=== PATIENT | female | born 1985 | race Caucasian/White ===

== ENCOUNTER → 2017-06-26 | Outpatient (CLI) | payer OTHER, SELFPAY | PROVIDERS: Visit Provider Internal Medicine | DX: L02.221 Furuncle of abdominal wall (principal) | CPT/HCPCS: 87070; 87077; 87186 ==

== ENCOUNTER → 2017-09-28 07:34 | Outpatient (CLI) | payer OTHER, SELFPAY ==
[2017-09-28 07:45] LABS: Basophils % 0.3 % (0.1-2.0); Eosinophils # 0.2 K/mm3 (0.0-0.4); Hematocrit 41.2 % (37.0-47.0); Hemoglobin 13.9 g/dL (12.2-16.2); Lymphocytes # 2.7 K/mm3 (0.7-4.5); Lymphocytes % 25.2 K/mm3 (10-50); Mean Corpuscular HGB Conc 33.7 g/dL (31.8-35.4); Mean Corpuscular Hemoglobin 29.5 pg (27.0-31.2); Mean Corpuscular Volume 87.5 fl (81-99); Mean Platelet Volume 7.5 fl (7.4-10.4); Monocytes # 0.6 K/mm3 (0.1-1.0); Monocytes % 5.4 % (1.7-9.3); Neutrophils # 7.2 K/mm3 (1.8-7.8); Platelet Count 348 K/mm3 (142-424); Red Cell Distribution Width 14.1 % (11.5-17.5); White Blood Count 10.8 K/mm3 (4.8-10.8)
[2017-09-28 09:53] LABS: Alanine Aminotransferase 37 U/L (12-78); Albumin Level 2.8 gm/dL (3.4-5.0); Albumin/Globulin Ratio 0.8 (1.1-1.8); Alkaline Phosphatase 113 U/L (46-116); Aspartate Amino Transferase 22 U/L (15-37); Bilirubin,Total 0.2 mg/dL (0.2-1.0); Blood Urea Nitrogen 11 mg/dL (7-18); Calcium 8.5 mg/dL (8.5-10.1); Carbon Dioxide 25 mmol/L (21.0-32.0); Chloride 102 mmol/L (98-107); Chol/HDL Ratio 3.1 (1-3.5); Cholesterol 144 mg/dL (140-200); Creatinine,Serum 0.62 mg/dL (0.55-1.02); Estimated Glomerular Filt Rate 113 ml/min (>60); GFR (African American) 137 ML/MIN (>60); Globulin 3.6 gm/dl (1.3-3.2); Glucose 185 mg/dL (74-106); HDL Cholesterol 47 mg/dL (29-89); LDL Cholesterol 77 mg/dL (0-130); Sodium 137 mmol/L (136-145); Thyroid Stimulating Hormone 2.12 uIU/ml (0.358-3.740); Total Protein,Serum 6.4 gm/dL (6.4-8.2); Triglycerides 98 mg/dL (30-200); VLDL Cholesterol 20 mg/dL (0-40)
[2017-09-29 19:43] LABS: Hemoglobin A1C 6.5 % (0.0-7.0)
== END ==
PROVIDERS: Visit Provider Internal Medicine
DX: R53.83 Other fatigue (principal); E78.5 Hyperlipidemia, unspecified; E11.9 Type 2 diabetes mellitus without complications; K76.0 Fatty (change of) liver, not elsewhere classified
CPT/HCPCS: 36415; 80053; 80061; 83036; 84443; 85025

== ENCOUNTER → 2017-10-25 17:02 | Outpatient (REF) | payer OTHER, SELFPAY | LOC: LAB 17:02 | PROVIDERS: Visit Provider Nurse Practitioner Obstetrics & Gynecology | DX: Z01.419 Encounter for gynecological examination (general) (routine) without abnormal findings (principal) | CPT/HCPCS: 87086 ==

== ENCOUNTER → 2017-12-18 12:56 | Outpatient (POV) | payer OTHER, SELFPAY | PROVIDERS: Visit Provider Physician Assistant | DX: Z00.00 Encounter for general adult medical examination without abnormal findings (principal) ==

== ENCOUNTER → 2018-04-13 07:52 | Outpatient (CLI) | payer OTHER, SELFPAY ==
[2018-04-13 10:49] LABS: Hemoglobin A1C 8.5 % (0.0-7.0)
[2018-04-13 11:02] LABS: Alanine Aminotransferase 42 U/L (12-78); Albumin Level 2.9 gm/dL (3.4-5.0); Albumin/Globulin Ratio 0.7 (1.1-1.8); Alkaline Phosphatase 142 U/L (46-116); Anion Gap 16.5 mEq/L (5-15); Aspartate Amino Transferase 30 U/L (15-37); Bilirubin,Total 0.2 mg/dL (0.2-1.0); Blood Urea Nitrogen 9 mg/dL (7-18); Calcium 8.8 mg/dL (8.5-10.1); Carbon Dioxide 24 mmol/L (21.0-32.0); Chloride 102 mmol/L (98-107); Chol/HDL Ratio 3.3 (1-3.5); Cholesterol 140 mg/dL (140-200); Creatinine,Serum 0.57 mg/dL (0.55-1.02); Estimated Glomerular Filt Rate 124 ml/min (>60); GFR (African American) 150 ML/MIN (>60); Glucose 177 mg/dL (74-106); HDL Cholesterol 43 mg/dL (29-89); LDL Cholesterol 75 mg/dL (0-130); Potassium 4.5 mmoL/L (3.5-5.1); Sodium 138 mmol/L (136-145); Thyroid Stimulating Hormone 3.98 uIU/ml (0.358-3.740); Total Protein,Serum 6.9 gm/dL (6.4-8.2); Triglycerides 108 mg/dL (30-200); VLDL Cholesterol 22 mg/dL (0-40)
== END ==
PROVIDERS: PCP Internal Medicine; Visit Provider Internal Medicine
DX: E11.9 Type 2 diabetes mellitus without complications (principal); E78.5 Hyperlipidemia, unspecified; R19.7 Diarrhea, unspecified; R53.83 Other fatigue; G47.10 Hypersomnia, unspecified
CPT/HCPCS: 36415; 80053; 80061; 83036; 84443

== ENCOUNTER → 2018-04-16 12:55 | Outpatient (POV) | payer OTHER, SELFPAY | PROVIDERS: Family Provider Internal Medicine; PCP Internal Medicine; Visit Provider Physician Assistant | DX: Z00.00 Encounter for general adult medical examination without abnormal findings (principal) ==

== ENCOUNTER → 2018-07-20 07:43 | Outpatient (CLI) | payer OTHER, SELFPAY ==
[2018-07-20 15:19] LABS: Hemoglobin A1C 8.3 % (0.0-7.0)
== END ==
PROVIDERS: PCP Internal Medicine; Visit Provider Internal Medicine
DX: E03.9 Hypothyroidism, unspecified (principal); E11.9 Type 2 diabetes mellitus without complications
CPT/HCPCS: 36415; 83036; 84443

== ENCOUNTER → 2019-07-03 10:47 | Outpatient (CLI) | payer OTHER, SELFPAY ==
[2019-07-03 12:17] VITALS: PULSE 71; PULSE 72
--- NOTE | 2019-07-03 12:21 | XR_ITS ---
PROCEDURE: XR CHEST 2V CLINICAL HISTORY: ASTHMA Shortness of breath COMPARISON: CXR CHEST(2 VIEWS-NOT PORTABLE) from 10/06/2015 FINDINGS: The cardiomediastinal silhouette and pulmonary vascularity are within normal limits. The lungs are clear without infiltrates, suspicious nodules, or pleural effusions. No acute bony abnormalities. IMPRESSION: No acute findings. Dictated by: Jonathan Cody MD 07/03/2019 21:23 Electronically signed by Jonathan Cody MD in [place] 07/03/2019 21:25
== END ==
LOC: RT 10:48 → RAD 12:11
PROVIDERS: PCP Internal Medicine; Visit Provider Internal Medicine
DX: J45.51 Severe persistent asthma with (acute) exacerbation
CPT/HCPCS: 71046; 94640

== ENCOUNTER → 2020-01-03 11:48 | Outpatient (CLI) | payer OTHER, SELFPAY ==
[2020-01-03 14:43] LABS: Chloride 103 mmol/L (98-107)
[2020-01-03 14:44] LABS: Potassium 4.1 mmoL/L (3.5-5.1); Sodium 134 mmol/L (136-145)
[2020-01-03 14:46] LABS: Alanine Aminotransferase 26 U/L (12-78); Alkaline Phosphatase 150 U/L (38-126); Amylase 48 U/L (30-110); Anion Gap 12.1 mEq/L (5-15); Aspartate Amino Transferase 40 U/L (14-36); Bilirubin,Total 0.3 mg/dl (0.2-1.3); Blood Urea Nitrogen 11 mg/dl (7-17); Carbon Dioxide 23 mmol/L (22.0-30.0); Estimated Glomerular Filt Rate 143 ml/min (>60); GFR (African American) 173 ML/MIN (>60)
[2020-01-03 14:47] LABS: Albumin Level 3.5 g/dl (3.5-5.0); Albumin/Globulin Ratio 1.2 (1.1-1.8); Glucose 290 mg/dl (74-100); Total Protein,Serum 6.5 g/dl (6.3-8.2)
== END ==
PROVIDERS: Visit Provider Internal Medicine
DX: R10.11 Right upper quadrant pain (principal)
CPT/HCPCS: 36415; 80053; 82150

== ENCOUNTER → 2020-01-09 07:51 | Outpatient (CLI) | payer OTHER, SELFPAY ==
--- NOTE | 2020-01-09 07:54 | US_ITS ---
PROCEDURE: US ABDOMEN COMPLETE CLINICAL INDICATION: RUQ PAIN,LT FLANK PAIN Right upper quadrant pain, left flank pain COMPARISON: RUQ US RUQ-(ABD LTD)1ORGAN/QUAD/FU from 01/20/2017 FINDINGS: PANCREAS: Unremarkable. No obvious mass or abnormal fluid collection. No ductal dilatation LIVER: There is slight increased echogenicity of the liver with a somewhat coarse echotexture. No focal liver lesions are evident. The common bile duct is normal at 4 mm. RIGHT KIDNEY: Unremarkable. Normal size and echogenicity. No hydronephrosis LEFT KIDNEY: Unremarkable. Normal size and echogenicity. No hydronephrosis GALLBLADDER: Status post cholecystectomy. AORTA: No evidence of aneurysmal dilatation. SPLEEN: Unremarkable. Normal size and echogenicity ASCITES: None demonstrated. IMPRESSION: Slight increased echogenicity of the liver suggesting hepatic steatosis. Prior cholecystectomy. Dictated by: Jonathan Cody MD 01/09/2020 17:30 Electronically signed by Jonathan Coyd MD in [facility] 01/09/2020 17:30
== END ==
PROVIDERS: PCP Internal Medicine; Visit Provider Internal Medicine
DX: R10.11 Right upper quadrant pain (principal); R10.9 Unspecified abdominal pain
CPT/HCPCS: 76700

== ENCOUNTER → 2020-01-29 13:42 | Outpatient (CLI) | payer OTHER, SELFPAY ==
[2020-01-29 16:07] LABS: Coronavirus 19 IgG Antibody Negative (Negative); Coronavirus 19 IgM Antibody Negative (Negative)
== END ==
PROVIDERS: Visit Provider Internal Medicine
DX: Z03.818 Encounter for observation for suspected exposure to other biological agents ruled out (principal)
CPT/HCPCS: 36415; 86328

== ENCOUNTER → 2020-02-28 14:09 | Outpatient (CLI) | payer OTHER, SELFPAY | PROVIDERS: Visit Provider Internal Medicine | DX: L02.221 Furuncle of abdominal wall (principal) | CPT/HCPCS: 87070; 87077; 87186; 87205 ==

== ENCOUNTER → 2020-04-14 11:56 | Outpatient (CLI) | payer OTHER, SELFPAY ==
[2020-04-14 12:20] LABS: Adenovirus F 40/41, stool Not Detected (NotDetected); Astrovirus Not Detected (NotDetected); Campylobacter Not Detected (NotDetected); Clostridium Difficile A/B, PCR Not Detected (NotDetected); Cryptosporidium Not Detected (NotDetected); Cyclospora Cayetanesis Not Detected (NotDetected); Entamoeba histolytica Not Detected (NotDetected); Enteroaggregative E coli Not Detected (NotDetected); Enterotoxigenic E coli Not Detected (NotDetected); Giardia lamblia Not Detected (NotDetected); Norovirus Not Detected (NotDetected); Plesimonas Shigalloides, PCR Not Detected (NotDetected); Rotavirus A Not Detected (NotDetected); Salmonella, PCR Not Detected (NotDetected); Sapovirus Not Detected (NotDetected); Shiga-like toxin E coli Not Detected (NotDetected); Shigella Enterovasive E coli Not Detected (NotDetected); Vibrio Cholerae Not Detected (NotDetected); Vibrio, PCR Not Detected (NotDetected); Yersinia Entercolitica, PCR Not Detected (NotDetected)
[2020-04-14 20:55] LABS: Enteropathogenic E coli Detected (NotDetected)
== END ==
PROVIDERS: PCP Internal Medicine; Visit Provider Internal Medicine
DX: R19.7 Diarrhea, unspecified (principal); A04.0 Enteropathogenic Escherichia coli infection
CPT/HCPCS: 87507

== ENCOUNTER → 2020-05-21 14:52 | Outpatient (CLI) | payer OTHER, SELFPAY ==
[2020-05-21 15:06] LABS: Adenovirus F 40/41, stool Not Detected (NotDetected); Astrovirus Not Detected (NotDetected); Campylobacter Not Detected (NotDetected); Clostridium Difficile A/B, PCR Not Detected (NotDetected); Cryptosporidium Not Detected (NotDetected); Cyclospora Cayetanesis Not Detected (NotDetected); Entamoeba histolytica Not Detected (NotDetected); Enteroaggregative E coli Not Detected (NotDetected); Enteropathogenic E coli Not Detected (NotDetected); Enterotoxigenic E coli Not Detected (NotDetected); Giardia lamblia Not Detected (NotDetected); Norovirus Not Detected (NotDetected); Plesimonas Shigalloides, PCR Not Detected (NotDetected); Rotavirus A Not Detected (NotDetected); Salmonella, PCR Not Detected (NotDetected); Sapovirus Not Detected (NotDetected); Shiga-like toxin E coli Not Detected (NotDetected); Shigella Enterovasive E coli Not Detected (NotDetected); Vibrio Cholerae Not Detected (NotDetected); Vibrio, PCR Not Detected (NotDetected); Yersinia Entercolitica, PCR Not Detected (NotDetected)
== END ==
PROVIDERS: PCP Internal Medicine; Visit Provider Internal Medicine
DX: K52.9 Noninfective gastroenteritis and colitis, unspecified (principal)
CPT/HCPCS: 87507

== ENCOUNTER → 2020-07-07 09:05 | Outpatient (CLI) | payer OTHER, SELFPAY ==
[2020-07-08 14:14] LABS: Covid-19 Nasal PCR Sendout Lex Not Detected
== END ==
PROVIDERS: PCP Internal Medicine; Visit Provider Internal Medicine
DX: Z03.818 Encounter for observation for suspected exposure to other biological agents ruled out (principal); R19.7 Diarrhea, unspecified
CPT/HCPCS: U0004

== ENCOUNTER → 2020-08-25 07:11 | Outpatient (CLI) | payer OTHER, SELFPAY ==
--- NOTE | 2020-08-25 07:28 | ECG_ITS ---
APPROVED REPORT Exam: Resting ECG HR:77 bpm ECG Measurements Heart Rate 77 AXES OR 164 P 40 QRSd 82 QRS 0 QT 388 T 28 QTc 439 Conclusion Normal sinus rhythm Low voltage QRS Poor R Wave Progression Abnormal ECG Electronically signed by : Agapito Sauceda, 08/25/2020 13:44:41
[2020-08-25 07:54] LABS: Basophils # 0.1 K/mm3 (0-0.2); Basophils % 0.6 % (0.1-2.0); Eosinophils # 0.2 K/mm3 (0.0-0.4); Eosinophils % 2.1 % (0.1-12.0); Hematocrit 46.7 % (37.0-47.0); Lymphocytes % 26.4 % (10-50); Mean Corpuscular HGB Conc 32.1 g/dL (31.8-35.4); Mean Corpuscular Hemoglobin 27.5 pg (27.0-31.2); Mean Corpuscular Volume 85.6 fl (81-99); Mean Platelet Volume 7.9 fl (7.4-10.4); Monocytes # 0.5 K/mm3 (0.1-1.0); Monocytes % 4.1 % (1.7-9.3); Neutrophils # 7.7 K/mm3 (1.8-7.8); Neutrophils % 66.8 % (37.0-80.0); Platelet Count 338 K/mm3 (142-424); Red Blood Count 5.46 M/mm3 (4.20-5.40); Red Cell Distribution Width 15.8 % (11.5-17.5); White Blood Count 11.5 K/mm3 (4.8-10.8)
[2020-08-25 09:09] LABS: Alanine Aminotransferase 21 U/L (12-78); Albumin Level 3.3 g/dl (3.5-5.0); Alkaline Phosphatase 143 U/L (38-126); Amylase 35 U/L (30-110); Anion Gap 12.4 mEq/L (5-15); Aspartate Amino Transferase 47 U/L (14-36); Bilirubin,Total 0.3 mg/dl (0.2-1.3); Blood Urea Nitrogen 9 mg/dl (7-17); Calcium 9.4 mg/dl (8.4-10.2); Carbon Dioxide 26 mmol/L (22.0-30.0); Chloride 99 mmol/L (98-107); Estimated Glomerular Filt Rate 142 ml/min (>60); GFR (African American) 172 ML/MIN (>60); Globulin 3.4 g/dL (1.3-3.2); Glucose 279 mg/dl (74-100); Potassium 4.4 mmoL/L (3.5-5.1); Sodium 133 mmol/L (136-145); Total Protein,Serum 6.7 g/dl (6.3-8.2)
[2020-08-25 09:24] LABS: Troponin I < 0.01 ng/ml (0.00-0.034)
== END ==
PROVIDERS: Visit Provider Internal Medicine
DX: R07.89 Other chest pain (principal); R10.13 Epigastric pain
CPT/HCPCS: 36415; 80053; 82150; 84484; 85025; 93005

== ENCOUNTER → 2020-09-22 09:27 | Outpatient (CLI) | payer OTHER, SELFPAY | PROVIDERS: PCP Internal Medicine; Visit Provider Internal Medicine | DX: Z20.822 Contact with and (suspected) exposure to COVID-19 (principal) | CPT/HCPCS: U0003 ==

== ENCOUNTER → 2021-02-16 16:52 | Outpatient (CLI) | payer OTHER, SELFPAY ==
[2021-02-16 16:55] LABS: Adenovirus F 40/41, stool Not Detected (NotDetected); Astrovirus Not Detected (NotDetected); Campylobacter Not Detected (NotDetected); Clostridium Difficile A/B, PCR Not Detected (NotDetected); Cryptosporidium Not Detected (NotDetected); Cyclospora Cayetanesis Not Detected (NotDetected); Entamoeba histolytica Not Detected (NotDetected); Enteroaggregative E coli Not Detected (NotDetected); Enteropathogenic E coli Not Detected (NotDetected); Enterotoxigenic E coli Not Detected (NotDetected); Giardia lamblia Not Detected (NotDetected); Norovirus Not Detected (NotDetected); Plesimonas Shigalloides, PCR Not Detected (NotDetected); Rotavirus A Not Detected (NotDetected); Salmonella, PCR Not Detected (NotDetected); Sapovirus Not Detected (NotDetected); Shiga-like toxin E coli Not Detected (NotDetected); Shigella Enterovasive E coli Not Detected (NotDetected); Vibrio Cholerae Not Detected (NotDetected); Vibrio, PCR Not Detected (NotDetected); Yersinia Entercolitica, PCR Not Detected (NotDetected)
== END ==
PROVIDERS: PCP Internal Medicine; Visit Provider Internal Medicine
DX: K52.9 Noninfective gastroenteritis and colitis, unspecified (principal)
CPT/HCPCS: 87507

== ENCOUNTER → 2021-02-18 19:53 | Outpatient (CLI) | payer OTHER, SELFPAY | PROVIDERS: Visit Provider Nurse Practitioner Family | DX: Z11.52 Encounter for screening for COVID-19 (principal) | CPT/HCPCS: U0003 ==

== ENCOUNTER → 2021-06-11 11:12 | Outpatient (CLI) | payer OTHER, SELFPAY ==
[2021-06-11 14:38] LABS: Coronavirus 19, PCR Not Detected (NotDetected); Influenza A, PCR Not Detected (NotDetected); Influenza B, PCR Not Detected (NotDetected)
== END ==
PROVIDERS: PCP Internal Medicine; Visit Provider Internal Medicine
DX: Z20.822 Contact with and (suspected) exposure to COVID-19 (principal)
CPT/HCPCS: C9803; U0003; U0005

== ENCOUNTER → 2021-06-12 10:38 | Outpatient (CLI) | payer OTHER, SELFPAY ==
[2021-06-12 10:43] LABS: Adenovirus F 40/41, stool Not Detected (NotDetected); Astrovirus Not Detected (NotDetected); Campylobacter Not Detected (NotDetected); Clostridium Difficile A/B, PCR Not Detected (NotDetected); Cryptosporidium Not Detected (NotDetected); Cyclospora Cayetanesis Not Detected (NotDetected); Entamoeba histolytica Not Detected (NotDetected); Enteroaggregative E coli Not Detected (NotDetected); Enteropathogenic E coli Not Detected (NotDetected); Enterotoxigenic E coli Not Detected (NotDetected); Giardia lamblia Not Detected (NotDetected); Norovirus Not Detected (NotDetected); Plesimonas Shigalloides, PCR Not Detected (NotDetected); Rotavirus A Not Detected (NotDetected); Salmonella, PCR Not Detected (NotDetected); Sapovirus Not Detected (NotDetected); Shiga-like toxin E coli Not Detected (NotDetected); Shigella Enterovasive E coli Not Detected (NotDetected); Vibrio Cholerae Not Detected (NotDetected); Vibrio, PCR Not Detected (NotDetected); Yersinia Entercolitica, PCR Not Detected (NotDetected)
== END ==
PROVIDERS: Visit Provider Internal Medicine
DX: K52.9 Noninfective gastroenteritis and colitis, unspecified (principal)
CPT/HCPCS: 87205; 87507

== ENCOUNTER → 2021-06-23 09:41 | Outpatient (CLI) | payer OTHER, SELFPAY ==
--- NOTE | 2021-06-23 09:43 | CT_ITS ---
PROCEDURE: CT ABDOMEN PELVIS WO CON CLINICAL INDICATION: GASTROENTERITIS COMPARISON: No exams were available for comparison TECHNIQUE: Axial images obtained with sagittal and coronal reformats. All CT scans at the facility use one or more dose reduction, viz: automated exposure control, ma/kV adjustment per patient size (including targeted exams where dose is matched to indication, i.e. head), or iterative reconstruction technique. FINDINGS: LOWER THORAX: Multiple small calcified nodules ABDOMEN & PELVIS: Prior cholecystectomy. Liver, spleen adrenal glands pancreas and kidneys have an unremarkable appearance. No renal or ureteral calculi. No intestinal obstruction or free air. Unremarkable appendix. No evidence of diverticulitis. The fundus of the uterus is prominent and canted toward the right raising the suspicion of uterine fibroid involvement. Ultrasound may confirm. No acute bony anomalies IMPRESSION: No acute finding. Enlarged fundus of the uterus canted toward the right which may be related to fibroid involvement. Ultrasound suggested for confirmation. Dictated by: Jonathan Cody MD 06/24/2021 09:37 Jonathan Cody MD in [facility] 06/24/2021 09:37
== END ==
PROVIDERS: PCP Internal Medicine; Visit Provider Internal Medicine
DX: K52.9 Noninfective gastroenteritis and colitis, unspecified (principal)
CPT/HCPCS: 74176

== ENCOUNTER → 2021-07-02 09:18 | Outpatient (CLI) | payer OTHER, SELFPAY ==
--- NOTE | 2021-07-02 09:21 | US_ITS ---
PROCEDURE: US ABDOMEN COMPLETE CLINICAL INDICATION: ABN CT SCAN, ABD CRAMPS, DIARRHEA COMPARISON: US US ABDOMEN COMPLETE from 01/09/[address] ABDOMEN PELVIS WO CON from 06/23/2021 FINDINGS: PANCREAS: Unremarkable. No obvious mass or abnormal fluid collection. No ductal dilatation LIVER: No focal liver lesions demonstrated. Homogeneous echogenicity. No intrahepatic biliary ductal dilatation evident. There is appropriate direction of blood flow within a non dilated portal vein RIGHT KIDNEY: Unremarkable. Normal size and echogenicity. No hydronephrosis LEFT KIDNEY: Unremarkable. Normal size and echogenicity. No hydronephrosis GALLBLADDER: No gallstones, gallbladder wall thickening, pericholecystic fluid, or biliary dilatation. AORTA: No evidence of aneurysmal dilatation. SPLEEN: Unremarkable. Normal size and echogenicity ASCITES: None demonstrated. IMPRESSION: No acute findings Dictated by: Jonathan Cody MD 07/02/2021 13:54 Jonathan oCdy MD in [facility] 07/02/2021 13:54
== END ==
PROVIDERS: PCP Internal Medicine; Visit Provider Internal Medicine
DX: R10.9 Unspecified abdominal pain (principal); R19.7 Diarrhea, unspecified; R93.5 Abnormal findings on diagnostic imaging of other abdominal regions, including retroperitoneum
CPT/HCPCS: 76700

== ENCOUNTER → 2021-07-07 14:15 | Outpatient (CLI) | payer OTHER, SELFPAY ==
--- NOTE | 2021-07-07 14:18 | US_ITS ---
PROCEDURE: US TRANSVAGINAL CLINICAL INDICATION: ABD CRAMPING COMPARISON: CT CT ABDOMEN PELVIS WO CON from 06/23/2021 FINDINGS: UTERUS: 8cm x 4cmx 4cm with a combined endometrial thickness of 3.1mm LEFT OVARY: 7lkh2oji6.4cm with a volume of 3.7ml. RIGHT OVARY: [id number] with a volume of 5.9ml. There are nabothian cyst present measuring up to 9 mm. Along the posterior aspect the body of the uterus there is a 1.3 x 1 cm area of decreased echogenicity consistent with a fibroid. No cul-de-sac fluid. IMPRESSION: Small uterine fibroid and small nabothian cysts otherwise negative pelvic ultrasound Dictated by: Jonathan Cody MD 07/07/2021 17:17 Jonathan Cody MD in [facility] 07/07/2021 17:17
== END ==
PROVIDERS: PCP Internal Medicine; Visit Provider Internal Medicine
DX: R10.9 Unspecified abdominal pain (principal)
CPT/HCPCS: 76830

== ENCOUNTER → 2021-08-16 11:20 | Outpatient (CLI) | payer OTHER, SELFPAY ==
[2021-08-16 11:35] LABS: Coronavirus 19, PCR Not Detected (NotDetected); Influenza A, PCR Not Detected (NotDetected); Influenza B, PCR Not Detected (NotDetected)
[2021-08-16 11:52] LABS: Strep Scrn Group A (Rapid) Negative (Negative)
== END ==
PROVIDERS: PCP Internal Medicine; Visit Provider Internal Medicine
DX: Z20.822 Contact with and (suspected) exposure to COVID-19 (principal)
CPT/HCPCS: 87430; C9803; U0003; U0005

== ENCOUNTER → 2021-10-16 15:15 | Outpatient (CLI) | payer OTHER, SELFPAY ==
[2021-10-16 15:25] VITALS: BMI 37.8
== END ==
PROVIDERS: PCP Internal Medicine; Visit Provider Nurse Practitioner
DX: J02.0 Streptococcal pharyngitis (principal)
CPT/HCPCS: J0561

== ENCOUNTER → 2021-10-27 07:06 | Outpatient (CLI) | payer OTHER, SELFPAY ==
--- NOTE | 2021-10-27 07:10 | XR_ITS ---
FINAL REPORT CLINICAL HISTORY: MUSCLE STRAIN, low back pain FINDINGS: LUMBAR SPINE 5 views of the lumbar spine were obtained. There is no evidence of fracture or dislocation. There is straightening of the normal lumbar curvature which could be due to positioning or muscle spasm. The vertebral alignment is normal. Disc spaces are preserved. No paraspinous soft tissue abnormalities identified. IMPRESSION: No acute bony abnormality. Reviewed, Interpreted and Dictated by Jair España III, MD Transcribed by Asha Chua Authenticated by Jair España III, MD on 10/27/2021 10:07:45 AM [facility]
== END ==
PROVIDERS: PCP Internal Medicine; Visit Provider Internal Medicine
DX: S39.012A Strain of muscle, fascia and tendon of lower back, initial encounter (principal)
CPT/HCPCS: 72110

== ENCOUNTER → 2021-11-01 06:09 | Outpatient (CLI) | payer OTHER, SELFPAY | PROVIDERS: PCP Internal Medicine; Visit Provider Emergency Medicine | DX: Z11.52 Encounter for screening for COVID-19 (principal) ==

== ENCOUNTER → 2021-12-06 14:57 | Outpatient (CLI) | payer OTHER, SELFPAY ==
[2021-12-06 16:37] LABS: Strep Scrn Group A (Rapid) Negative (Negative)
== END ==
PROVIDERS: Visit Provider Nurse Practitioner
DX: J02.9 Acute pharyngitis, unspecified (principal)
CPT/HCPCS: 87430

== ENCOUNTER 2022-01-07 15:14 | Emergency (ER) | payer OTHER, SELFPAY ==
[2022-01-07 15:15] VITALS: BP 121/78; PULSE 89; RESP 18; TEMP 36.8; O2SAT 96; BMI 39.3
--- NOTE | 2022-01-07 15:25 | HMH.EDUTC ---
[facility] Disposition Clinical Impression: Viral syndrome Pharyngitis Qualifiers: Pharyngitis/tonsillitis etiology: unspecified etiology Qualified Code(s): J02.9 - Acute pharyngitis, unspecified Disposition: Home, Self-Care Condition on Discharge: Good Instructions: DI for Pharyngitis/Tonsillopharyngitis -- Adult, DI for Viral Syndrome, Preventing the Spread of Coronavirus Discharge Instructions Additional Instructions: Drink plenty of fluids. Take tylenol or ibuprofen for pain or fever. Take the medications as directed. Follow up with your regular doctor. GO TO THE ER FOR ANY WORSENING SYMPTOMS Prescriptions: Benzonatate [Benzonatate 100mg cap] 100 mg PO TIDP PRN #30 cap PRN Reason: Cough Transmission Status: [facility] to [facility] Azithromycin [Z-Yung 250mg Tab*] 250 mg PO UD DOSE PK #6 tab Transmission Status: Sent to [facility] Referrals: Agapito Sauceda MD [Primary Care Provider] - Forms: Work/School Release Medical Decision Making - Medical Records Medical records reviewed: No: I reviewed the patient's medical records. - Mookie Inquiry Pt receiving controlled substance: No Vital Signs: 01/07/22 15:15 Temperature 98.3 F Temperature Source Oral Pulse Rate [Right Brachial] 89 Respiratory Rate 18 Blood Pressure [Right Arm] 121/78 Blood Pressure Mean [Right Arm] 92 Blood Pressure Source [Right Arm] Automatic Cuff Blood Pressure Position [Right Arm] Sitting 02 Sat by Pulse Oximetry 96 Oxygen Delivery Method Room Air - Lab Data Lab results reviewed: Yes: I reviewed the patient's lab results. Lab Results 01/07/22 15:25: Group A Strep Rapid Negative Orders (Tests/Meds): ED MEDICATIONS Discontinued Medications Generic Name Dose Route Start Last Admin Trade Name Freq PRN Reason Stop Dose Admin Methylprednisolone Sodium Succinate 125 mg 01/07/22 15:47 01/07/22 15:50 Methylprednisolone Sod Succ 125mg Vial IM 01/07/22 15:48 125 mg ONCE ONE Administration ORDERS Category Date Time Status Rapid PCR Covid and Flu A/B Stat Lab 01/07/22 15:58 Received Strep Screen Confirmation Stat Micro 01/07/22 15:25 Received [facility] HPI - General Stated complaint: sore throat Time Seen by Provider: 01/07/22 15:26 - History of Present Illness Provider Complaint: She states that for the past 5 days approx she has had a very sore throat, dry cough, chills, and malaise. She denies fever and body aches. - Related Data Home Medications Medication Instructions Recorded Confirmed lisinopril 2.5 mg tablet 2.5 mg PO ONCE 10/25/17 12/30/21 metformin 500 mg tablet,extended 500 mg PO QID tab 10/25/17 12/30/21 release 24 hr sertraline 50 mg tablet 50 mg PO Q24H 10/25/17 12/30/21 colestipol 1 gram tablet 1 g PO tab 12/30/21 12/30/21 levothyroxine 50 mcg tablet 50 mcg PO tab 12/30/21 12/30/21 semaglutide 7 mg tablet ea PO 12/30/21 12/30/21 Previous Rx's Medication Instructions Recorded carvedilol 3.125 mg tablet 3.125 mg PO BID #60 tab 03/09/18 norgestimate 0.25 mg-ethinyl See Rx Instructions .ROUTE 04/20/21 estradiol 35 mcg tablet .COMPLEX #84 tab Azithromycin [Z-Yung 250mg Tab*] 250 mg PO UD DOSE PK #6 tab 01/07/22 Benzonatate [Benzonatate 100mg 100 mg PO TIDP PRN #30 cap 01/07/22 cap] Allergies Allergy/AdvReac Type Severity Reaction Status Date / Time ORAL STEROIDS AdvReac Uncoded 12/30/21 13:55 [facility] History - Hepatitis A Screen Attestation statement:: This patient has been screened for Hepatitis A risk factors. I have reviewed the patient's past medical history: Yes Medical History: Reports:: Anxiety, Asthma, Depression, Diabetes Mellitus Type 2, Gall Bladder Disease, Hypertension Other Medical History: Reports: Thyroid Disease Laterality Cases: Bilateral: Tonsillectomy Other Surgeries: Yes: Cholecystectomy - Social History Smoking Status: Current every day smoker Tobacco Type: cigarettes # Packs/Day (ci
[2022-01-07 15:39] LABS: Strep Scrn Group A (Rapid) Negative (Negative)
[2022-01-07 16:04] LABS: Coronavirus 19, PCR Not Detected (NotDetected); Influenza A, PCR Not Detected (NotDetected); Influenza B, PCR Not Detected (NotDetected)
[2022-01-07 16:38] VITALS: BP 121/78; PULSE 89; RESP 18; TEMP 36.8; O2SAT 96
[2022-01-07 16:54] LABS: Adenovirus,PCR Not Detected (NotDetected); Bordetella Pertussis Not Detected (NotDetected); Chlamydophila Pneumoniae, PCR Not Detected (NotDetected); Coronavirus 229E Not Detected (NotDetected); Coronavirus NL63 Not Detected (NotDetected); Coronavirus OC43 Not Detected (NotDetected); Coronovirus HKU1,PCR Not Detected (NotDetected); Human Metapneumovirus Not Detected (NotDetected); Influenza A, PCR Not Detected (NotDetected); Influenza AH1, 2009 Not Detected (NotDetected); Influenza AH1, PCR Not Detected (NotDetected); Influenza AH3,PCR Not Detected (NotDetected); Influenza B, PCR Not Detected (NotDetected); Mycoplasma Pneumoniae, PCR Not Detected (NotDetected); Parainfluenza 1, PCR Not Detected (NotDetected); Parainfluenza 2, PCR Not Detected (NotDetected); Parainfluenza 3, PCR Not Detected (NotDetected); Parainfluenza 4, PCR Not Detected (NotDetected); Respiratory Syncytial Virus Not Detected (NotDetected); Rhinovirus/Enterovirus Not Detected (NotDetected)
== END 2022-01-07 16:43 | disposition home or self-care (01) ==
PROVIDERS: Emergency Provider Nurse Practitioner Family; PCP Internal Medicine
DX: J02.9 Acute pharyngitis, unspecified (principal); B34.9 Viral infection, unspecified
CPT/HCPCS: 87430; 87486; 87581; 87632; 87798; 96372; 99212; C9803; G0463; U0003; U0005

== ENCOUNTER → 2022-03-10 11:07 | Outpatient (CLI) | payer OTHER, SELFPAY ==
[2022-03-10 11:47] LABS: Coronavirus 19, PCR Not Detected (NotDetected); Influenza A, PCR Not Detected (NotDetected); Influenza B, PCR Not Detected (NotDetected)
== END ==
PROVIDERS: PCP Internal Medicine; Visit Provider Nurse Practitioner
DX: Z20.822 Contact with and (suspected) exposure to COVID-19 (principal)
CPT/HCPCS: C9803; U0003; U0005

== ENCOUNTER → 2022-03-13 18:18 | Outpatient (CLI) | payer OTHER, SELFPAY ==
[2022-03-13 18:44] LABS: Influenza A, PCR Not Detected (NotDetected); Influenza B, PCR Not Detected (NotDetected)
[2022-03-13 19:19] LABS: Coronavirus 19, PCR Detected (NotDetected)
== END ==
PROVIDERS: PCP Internal Medicine; Visit Provider Nurse Practitioner
DX: U07.1 COVID-19 (principal)
CPT/HCPCS: C9803; U0003; U0005

== ENCOUNTER → 2022-04-05 23:09 | Outpatient (CLI) | payer OTHER, SELFPAY ==
[2022-04-06 00:06] LABS: Strep Scrn Group A (Rapid) Negative (Negative)
== END ==
PROVIDERS: PCP Internal Medicine; Visit Provider Internal Medicine
DX: J02.9 Acute pharyngitis, unspecified (principal)
CPT/HCPCS: 87430

== ENCOUNTER → 2022-06-10 06:15 | Outpatient (CLI) | payer OTHER, SELFPAY ==
[2022-06-10 07:14] VITALS: BMI 32.8
== END ==
PROVIDERS: PCP Internal Medicine; Visit Provider Emergency Medicine
DX: M54.30 Sciatica, unspecified side (principal)

== ENCOUNTER → 2022-06-24 06:28 | Outpatient (CLI) | payer OTHER, SELFPAY ==
[2022-06-24 07:33] LABS: Coronavirus 19, PCR Not Detected (NotDetected); Influenza A, PCR Not Detected (NotDetected); Influenza B, PCR Not Detected (NotDetected)
== END ==
PROVIDERS: PCP Internal Medicine; Visit Provider Emergency Medicine
DX: Z20.822 Contact with and (suspected) exposure to COVID-19 (principal)
CPT/HCPCS: C9803; U0003; U0005

== ENCOUNTER 2022-06-24 18:12 | Emergency (ER) | payer OTHER, SELFPAY ==
--- NOTE | 2022-06-24 18:47 | EXP.UTC ---
Discharge Plan Disposition Patient Disposition: Home, Self-Care Condition: Good Prescriptions Prescriptions: New azithromycin [Zithromax] 250 mg tablet 250 mg PO UD DOSE PK Qty: 6 0RF Rx Instructions: Take two (2) tablets today, then one (1) tablet days #2 thru #5 methylprednisolone 4 mg Tablets,Dose Pack 4 mg PO DIRECTED Qty: 21 0RF [id number] [Bromfed DM] 2-30-10 mg/5 mL Syrup 5 ml PO Q6H PRN (Reason: Cough) Qty: 240 0RF No Action lisinopril 2.5 mg tablet 2.5 mg PO ONCE sertraline 50 mg tablet 50 mg PO Q24H metformin 500 mg tablet extended release 24 hr 500 mg PO QID levothyroxine 50 mcg tablet 50 mcg PO Label Comments: TAKE ONE TABLET BY MOUTH EVERY DAY IN THE MORNING Rybelsus 7 mg tablet PO Label Comments: TAKE ONE TABLET BY MOUTH EVERY DAY colestipol 1 gram tablet 1 g PO Label Comments: TAKE TWO TABLETS BY MOUTH EVERY DAY AT BEDTIME Mirena 20 mcg/24 hours (7 yrs) 52 mg intrauterine device INTRAUTERI carvedilol 3.125 mg tablet 3.125 mg PO BID Qty: 60 0RF Rx Instructions: needs appt for further refills Referrals Follow up/Referrals: Agapito Sauceda MD [Primary Care Provider] - See instructions Activity Restrictions/Add. Instructions Additional Instructions/Restrictions: Drink plenty of fluids. Take tylenol or ibuprofen for pain or fever. Take the medications as directed. Follow up with your regular doctor. GO TO THE ER FOR ANY WORSENING SYMPTOMS Clinical Impressions Clinical Impression: Acute viral syndrome, Bronchitis Stand Alone Forms Stand Alone Forms: Work/School Release Instructions Patient Instructions: DI for Acute Bronchitis, DI for Viral Syndrome Discharge ED Provider: Arun Vásquez [facility] General Stated complaint: diff breathing, cough, fever Time Seen by Provider: 06/24/22 18:47 History of Present Illness Provider Complaint: She states that for the past 2 days she has a sore throat, chills, body aches and malaise. Related Data Home Medications Medication Instructions Recorded Confirmed lisinopril 2.5 mg tablet 2.5 mg PO ONCE 10/25/17 01/28/22 metformin 500 mg tablet,extended 500 mg PO QID 10/25/17 01/28/22 release 24 hr sertraline 50 mg tablet 50 mg PO Q24H 10/25/17 01/28/22 colestipol 1 gram tablet 1 g PO 12/30/21 01/28/22 levothyroxine 50 mcg tablet 50 mcg PO 12/30/21 01/28/22 semaglutide 7 mg tablet (Rybelsus) ea PO 12/30/21 01/28/22 levonorgestrel 20 mcg/24 hours (8 intrauterine 01/28/22 01/28/22 yrs) 52 mg intrauterine device (Mirena) Previous Rx's Medication Instructions Recorded carvedilol 3.125 mg tablet 3.125 mg PO BID #60 tabs 03/09/18 azithromycin 250 mg tablet 250 mg PO UD DOSE PK #6 tabs 06/24/22 (Zithromax) [id number] 5 ml PO Q6H PRN Cough #240 mL 06/24/22 2 mg-30 mg-10 mg/5 mL oral syrup (Bromfed DM) methylprednisolone 4 mg tablets in 4 mg PO DIRECTED #21 tabs 06/24/22 a dose pack Allergies Allergy/AdvReac Type Severity Reaction Status Date / Time Androgenic Anabolic Steroid Allergy Mild Verified 06/10/22 07:16 [facility] Medical History Anxiety Asthma Depression Diabetes mellitus, type 2 Hypertension Thyroid disease Surgical History History of cholecystectomy History of tonsillectomy Social History Smoking Status: Current every day smoker tobacco type: cigarettes packs per day: 1 alcohol intake: never substance use type: denies use current occupational status: employed and other Travel in the last 8 weeks: None housing: house ROS Obtained: Yes All systems reviewed & no additional complaints except as documented Constitutional Constitutional: Reports chills and Reports fev
[2022-06-24 18:50] VITALS: BP 121/67; PULSE 89; RESP 19; TEMP 36.9; O2SAT 100; BMI 41.3
[2022-06-24 19:04] LABS: UTC Strep Screen (Rapid) Negative (Negative)
[2022-06-24 19:14] VITALS: BP 121/67; PULSE 89; RESP 19; TEMP 36.9; O2SAT 100
== END 2022-06-24 19:35 | disposition home or self-care (01) ==
PROVIDERS: Emergency Provider Nurse Practitioner Family; PCP Internal Medicine
DX: J20.9 Acute bronchitis, unspecified (principal)
CPT/HCPCS: 87880; 99212; G0463

== ENCOUNTER → 2022-07-21 06:43 | Outpatient (CLI) | payer OTHER, SELFPAY ==
[2022-07-21 06:49] VITALS: BMI 44.2
== END ==
PROVIDERS: PCP Internal Medicine; Visit Provider Emergency Medicine
DX: M54.32 Sciatica, left side (principal)

== ENCOUNTER → 2022-08-01 09:49 | Outpatient (CLI) | payer OTHER, SELFPAY ==
--- NOTE | 2022-08-01 09:53 | MR_ITS ---
FINAL REPORT TECHNIQUE: Multiplanar MR without contrast CLINICAL HISTORY: SCIATICA LEFT LEG FINDINGS: Sagittal images show normal vertebral height. Alignment is normal. Marrow signal pattern is unremarkable. L1-2: Unremarkable L2-3: Unremarkable L3-4: Moderate left paracentral disc extrusion compresses the thecal sac. There is left L4 nerve root compression. L4-5: Moderate annular disc bulge. Small central disc protrusion. Mild facet arthropathy. L5-S1: Moderate to large central disc protrusion with inferior extension. This contacts the bilateral S1 nerve roots. There is mild central canal stenosis. IMPRESSION: Significant disc disease in the lower lumbar spine. Reviewed, Interpreted and Dictated by Catalina Garrison MD Transcribed by June Ayala Authenticated and [facility]
== END ==
PROVIDERS: PCP Internal Medicine; Visit Provider Internal Medicine
DX: M54.42 Lumbago with sciatica, left side (principal)
CPT/HCPCS: 72148; 76376

== ENCOUNTER → 2022-08-17 12:51 | Outpatient (POV) | payer OTHER, SELFPAY ==
[2022-08-17 13:09] VITALS: BP 126/72; PULSE 94; RESP 18; O2SAT 97; BMI 42.0
--- NOTE | 2022-08-17 13:25 | EXP.PAIN.OV ---
HPI Data of Consult Patient: new to practice Consult date: 08/17/22 Requesting Physician: Seleen Clemons APRN Primary Care Provider: Agapito Sauceda MD Consult Narrative Reason for consult: Low back pain, left leg pain History of present illness: Ms. Castano is a 37 year old female who presents today as a new patient. She is a referral from Agapito Sauceda's office. She rates her pain a 5 out of 10. Patient states her pain is all in her low back with radiating symptoms into her left leg. Patient states this has been going on for approximately a month and a half. Patient denies any new trauma or injury. Patient states that she has always had low back issues for years and that she believes it has to do with the fact that she sits 8 hours a day on her job. Patient does describe her pain as a aching, throbbing with numbness and tingling all the way down to her left foot. Patient has tried ayjb-uja-gojukye Tylenol and ibuprofen with minimal improvement. Patient does also use a TENS unit and heating pad on a regular basis however she gets minimal relief. Patient is also tried Biofreeze along with Toradol and oral steroids with only temporary relief. Patient has continued to do stretching and exercise at home for longer than 6 weeks with minimal improvement. Patient is not currently on any scheduled medications. Patient denies any previous surgery or injections. Her Mookie is [id number]. Its been reviewed and appropriate. CC: Selene Clemons APRN [facility] Disclaimer: The information contained in this section may have been updated after the patient was seen, as this information can be updated by other users. Medical History Anxiety Asthma Depression Diabetes mellitus, type 2 Hypertension Thyroid disease Surgical History History of cholecystectomy History of tonsillectomy Social History (Updated 08/17/22 @ 13:17 by Nohemi Green RN) Smoking Status: Current every day smoker tobacco type: cigarettes packs per day: 1 alcohol intake: never substance use type: denies use current occupational status: employed Travel in the last 8 weeks: None housing: house Review of Systems Review of Systems Review of systems:: pertinent systems reviewed and negative unless documented below Review of systems (narrative): Review of Systems: General: No recent weight changes, no fever, no sleep disturbances Respiratory: No cough, no shortness of air, no recurring pulmonary infections Cardiovascular/peripheral vascular: No chest pain, no palpitations, no edema, no shortness of breath Gastrointestinal: No new onset incontinence, normal bowel movements reported Genitourinary: No new onset incontinence Musculoskeletal: Low back pain, left leg pain Psychiatric: [Normal mood/affect] Neurological: [Denies weakness in extremities], [denies balance issues] Meds Home Medications and Allergies Home Medications Medication Instructions Recorded Confirmed Type lisinopril 2.5 mg tablet 2.5 mg PO ONCE BLOOD PRESSURE 10/25/17 08/17/22 History metformin 500 mg tablet,extended 500 mg PO QID Diabetes 10/25/17 08/17/22 History release 24 hr sertraline 50 mg tablet 50 mg PO Q24H MOOD 10/25/17 08/17/22 History colestipol 1 gram tablet 1 g PO DIRECTED Cholesterol 12/30/21 08/17/22 History levothyroxine 50 mcg tablet 50 mcg PO DAILY THYROID 12/30/21 08/17/22 History semaglutide 7 mg tablet (Rybelsus) 7 mg PO DIRECTED Diabetes 12/30/21 08/17/22 History levonorgestrel 20 mcg/24 hours (8 1 device intrauterine DIRECTED 01/28/22 08/17/22 History yrs) 52 mg intrauterine device control (Mirena) carvedilol 3.125 mg tablet 3.125 mg PO BID BLOOD PRESSURE 08/17/22 08/17/22 History New Prescriptions to Start Prescriptions: Allergies Allergy/AdvReac Type Severity Reaction Status Date / Time Androgenic Anabolic Steroid Allergy Mild
== END ==
PROVIDERS: PCP Internal Medicine; Visit Provider Nurse Practitioner Family
DX: M54.16 Radiculopathy, lumbar region (principal); M54.50 Low back pain, unspecified; M79.605 Pain in left leg; G54.9 Nerve root and plexus disorder, unspecified; M47.816 Spondylosis without myelopathy or radiculopathy, lumbar region
CPT/HCPCS: 99202; G0463

== ENCOUNTER 2022-08-23 09:29 | Day surgery (SDC) | payer OTHER, SELFPAY ==
[2022-08-23 09:34] VITALS: BP 163/98; PULSE 89; RESP 18; TEMP 36.4; O2SAT 100; BMI 42.0
[2022-08-23 09:44] VITALS: BP 147/65; PULSE 78; RESP 18; O2SAT 99
[2022-08-23 09:45] VITALS: BP 147/65; PULSE 78; RESP 18; O2SAT 99
[2022-08-23 09:51] VITALS: BP 128/66; PULSE 81; RESP 18; O2SAT 100
--- NOTE | 2022-08-23 09:51 | EXP.PAIN.PRO ---
Procedure Date: 08/23/22 Time: 09:45 Anesthesiologist:: Vasyl Parmar CRNA Complications:: None Pre-procedure Diagnosis:: Degenerative disc disease lumbar spine. Disc bulge L3-4, L4-5. Left leg radicular symptoms. Post-procedure Diagnosis:: Same. Indications for Procedure:: Very pleasant 37-year-old female comes our clinic today for a left L3-4 transforaminal epidural steroid injection. Patient describes left leg pain down the lateral border of the left leg to the foot. She describes it as constant, dull, aching, tingling at times. She rates her pain 7/10. Procedure Details:: Details of the procedure explained to the patient. Patient taken to procedure room placed in the prone position on the fluoroscopy table. The area over the lumbar spine was cleaned using chlorhexidine as a cleansing solution. A marker was placed at the left lateral border of the L3 vertebral body. The skin and subcutaneous tissue was anesthetized using 1% lidocaine 25-gauge needle. At this time using a 3 and half inch 22-gauge spinal needle the upper one third of the left L3-4 foramen was accessed. Needle position was confirmed in the lateral position using fluoroscopy. After negative aspiration 1.5 cc of 1% lidocaine and 20 mg of Depo-Medrol was injected. Patient tolerated the procedure without difficulty. There are no complications Plan and Disposition:: Patient was discharged without incident.
== END 2022-08-23 09:51 | disposition home or self-care (01) ==
PROVIDERS: PCP Internal Medicine; Visit Provider Nurse Anesthetist, Certified Registered
DX: M51.16 Intervertebral disc disorders with radiculopathy, lumbar region (principal)
CPT/HCPCS: 64483; 64484; J1030

== ENCOUNTER → 2022-09-22 08:45 | Outpatient (POV) | payer OTHER, SELFPAY ==
--- NOTE | 2022-09-22 09:12 | EXP.PAIN.SOA ---
[facility] Pain Management SOAP Note Subjective:: Patient is a pleasant 37-year-old female who presents today for follow-up of left transforaminal epidural steroid injection at L3-L4 and L4-L5. We are currently treating the patient for degenerative disc disease of lumbar spine with lumbar radiculopathy symptoms, left leg pain, low back pain, left L4 nerve root compression, lumbar facet arthropathy. Today the patient states that she has had at least 90% improvement following this injection however it only lasted approximately 4 days. Patient states she was able to increase her activity with decreased pain. Today she states she is back to her baseline and rates her pain a 6 out of 10. Patient denies any new trauma or injury. Patient denies any change to location or type of pain she experiences. Patient will occasionally use Tylenol or ibuprofen along with Biofreeze, heating pad and a TENS unit however this only provides minimal improvement. Patient does work at a job that requires her to sit 8 hours a day and she states by the end of the day she is in significant pain. She does describe her pain as an aching, throbbing sensation with numbness and tingling all the way down her left foot. Patient is not on any scheduled medications. Her Mookie is [phone]. Its been reviewed and appropriate. Review of Systems: General: No recent weight changes, no fever, no sleep disturbances Respiratory: No cough, no shortness of air, no recurring pulmonary infections Cardiovascular/peripheral vascular: No chest pain, no palpitations, no edema, no shortness of breath Gastrointestinal: No new onset incontinence, normal bowel movements reported Genitourinary: No new onset incontinence Musculoskeletal: Low back pain, left leg pain Psychiatric: [Normal mood/affect] Neurological: [Denies weakness in extremities], [denies balance issues] Objective:: Physical Exam: General: Alert and oriented x3, no acute distress, pleasant and cooperative Lungs: Respirations even and unlabored, symmetrical chest expansion Eyes: PERRL Musculoskeletal: Flexion and extension of lumbar [spine] somewhat guarded secondary to pain, [antalgic gait noted] Neurological: Speech clear, no gross sensory deficit Assessment:: Degenerative disc disease of lumbar spine with lumbar radiculopathy symptoms, left leg pain, low back pain, left L4 nerve root compression, lumbar facet arthropathy Plan:: Patient had significant improvement following her previous left transforaminal epidural steroid injection however she is back to her baseline at today's visit. Patient did have limited range of motion of her lumbar spine. Patient's previous MRI did show a left L4 nerve root compression along with bilateral S1 nerve root contact and mild central canal stenosis. I have discussed with the patient that she may benefit from a repeat transforaminal epidural steroid injection. Risk and benefits were discussed with the patient. She would like to proceed forward with this plan of care. Patient is not on any blood thinners. I will also order the patient a compounding cream during today's visit. We will schedule the patient for a left transforaminal epidural steroid injection L3-L4 and L4-L5. Patient has been instructed to contact the clinic with any concerns before the next appointment. Dr. Helton has reviewed this note and agrees with this plan of care. This note was dictated using voice recognition software and make contain errors or omissions. [facility] Disclaimer: The information contained in this section may have been updated after the patient was seen, as this information can be updated by other users. Medical History Anxiety Asthma Depression Diabetes mellitus, type 2 Hypertension Thyroid disease Surgical History History of cholecystectomy History of tonsillectomy Family History (Updated 08/23/22 @ 09:36 by
[2022-09-22 09:36] VITALS: BP 128/63; PULSE 85; RESP 18; O2SAT 97; BMI 42.9
== END ==
PROVIDERS: PCP Internal Medicine; Visit Provider Nurse Practitioner Family
DX: M51.16 Intervertebral disc disorders with radiculopathy, lumbar region (principal); M47.26 Other spondylosis with radiculopathy, lumbar region; M79.605 Pain in left leg; F17.210 Nicotine dependence, cigarettes, uncomplicated; Z79.899 Other long term (current) drug therapy
CPT/HCPCS: 99212; G0463

== ENCOUNTER 2022-10-04 13:26 | Day surgery (SDC) | payer OTHER, SELFPAY ==
[2022-10-04 13:42] VITALS: BP 122/72; PULSE 89; RESP 18; TEMP 36.6; O2SAT 94; BMI 42.9
[2022-10-04 13:55] VITALS: BP 135/77; PULSE 85; RESP 18; O2SAT 97
[2022-10-04 13:56] VITALS: BP 135/77; PULSE 85; RESP 18; O2SAT 97
[2022-10-04 14:02] VITALS: BP 119/52; PULSE 83; RESP 18; O2SAT 94
--- NOTE | 2022-10-04 14:05 | P.PCN_ITS ---
Procedure Date: 10/04/22 Time: 14:00 Anesthesiologist:: Vasyl Parmar CRNA Complications:: None Pre-procedure Diagnosis:: Degenerative disc disease lumbar spine multilevels. Lumbar disc bulge L3-4, L4- 5. Lumbar radiculopathy Post-procedure Diagnosis:: Same. Indications for Procedure:: This patient is a very pleasant 37-year-old female comes our clinic today for repeat left L3-4 and L4-5 transforaminal epidural steroid injection. Patient had this in the past with significant improvement in terms of her left hip and leg radicular symptoms. Patient describes left hip and leg radicular symptoms as constant, dull, aching. She rates her pain today 02/06 Procedure Details:: Details of the procedure were explained to the patient. The patient was taken the procedure room placed in the prone position. The area of the lumbar spine was cleansed using chlorhexidine as a cleansing solution. At this time using fluoroscopy guidance markers were placed on the left lateral border of the L4 and L5 vertebral body. The skin and subcutaneous tissue was anesthetized using 1% lidocaine and 25-gauge needle. At this time using a 22-gauge 3-1/2 inch spinal needle the left upper one third of the L4-5 foramen was accessed. The same was done at the left L5-S1 foramen. Needle positions were confirmed and a lateral view using fluoroscopy and contrast dye. At this time 1 cc of 1% lidocaine +20 mg of Depo-Medrol was injected at each level after negative aspiration. [place] were removed. Band-Aid applied. Patient tolerated the procedure without difficulty. There are no complications. Plan and Disposition:: Patient was discharged without incident.
== END 2022-10-04 14:02 | disposition home or self-care (01) ==
PROVIDERS: PCP Internal Medicine; Visit Provider Nurse Anesthetist, Certified Registered
DX: M51.16 Intervertebral disc disorders with radiculopathy, lumbar region (principal)
CPT/HCPCS: 64483; 64484; J1040; Q9966

== ENCOUNTER → 2022-10-14 08:23 | Outpatient (POV) | payer OTHER, SELFPAY ==
[2022-10-14 08:37] VITALS: BP 124/77; PULSE 98; RESP 20; O2SAT 97; BMI 42.9
--- NOTE | 2022-10-14 09:06 | EXP.PAIN.SOA ---
[facility] Pain Management SOAP Note Subjective:: Patient is a pleasant 37-year-old female who presents today for follow-up of left transforaminal epidural steroid injection at L3-4 and L4-5 on 10/04/2022. Patient is currently being treated for degenerative disc disease of lumbar spine multilevels with lumbar radiculopathy symptoms, lumbar disc bulge L3-4, L4-5, low back pain, left leg pain, left L4 nerve root compression, lumbar facet arthropathy. Today she states that she has had at least 70% improvement following that injection however it only lasted approximately 3 days. During that time she was able to increase her activity with less pain symptoms. She does state her pain is an 8 out of 10 during her visit. Patient denies any new trauma or injury. Patient denies any change to location or type of pain she experiences. Patient does state that she has pain in her low back with radiating symptoms to her left hip and down her leg. Patient does describe this as a aching, throbbing sensation that is worse with increased activity. It does interfere with her ability to perform activities of daily living such as cooking and cleaning. Patient is prescribed compounding cream however she states it only last for approximately 10 minutes. Patient denies any cardiac or kidney issues in the past. She states she does take [id number] ibuprofen to help provide additional relief of her symptoms. Her Mookie is [id number]. Its been reviewed and appropriate. Review of Systems: General: No recent weight changes, no fever, no sleep disturbances Respiratory: No cough, no shortness of air, no recurring pulmonary infections Cardiovascular/peripheral vascular: No chest pain, no palpitations, no edema, no shortness of breath Gastrointestinal: No new onset incontinence, normal bowel movements reported Genitourinary: No new onset incontinence Musculoskeletal: Low back pain, left hip pain, left leg pain Psychiatric: [Normal mood/affect] Neurological: [Denies weakness in extremities], [denies balance issues] Objective:: Physical Exam: General: Alert and oriented x3, no acute distress, pleasant and cooperative Lungs: Respirations even and unlabored, symmetrical chest expansion Eyes: PERRL Musculoskeletal: Flexion and extension of lumbar [spine] somewhat guarded secondary to pain, [antalgic gait noted] extreme point tenderness along the left greater trochanteric bursa Neurological: Speech clear, no gross sensory deficit Assessment:: degenerative disc disease of lumbar spine multilevels with lumbar radiculopathy symptoms, lumbar disc bulge L3-4, L4-5, low back pain, left leg pain, left L4 nerve root compression, lumbar facet arthropathy, greater trochanteric bursitis Plan:: Patient is experiencing significant pain in her low back and left hip with radicular symptoms into her left leg. Patient did have limited range of motion of her lumbar spine and extreme point tenderness along her left greater trochanteric bursa during today's exam. I have discussed with the patient that she may benefit from left greater trochanteric bursa injection. Risk and benefits were discussed with the patient and she would like to proceed forward with this plan of care. I will also order the patient diclofenac 75 mg twice daily and provide a 2-week supply of this medication. I have counseled the patient to take this medication with food to minimize GI upset and to discontinue all other NSAIDs while taking this. Patient will be scheduled for a left greater trochanteric bursa injection. Patient has been instructed to contact the clinic with any concerns before the next appointment. Dr. Helton has reviewed this note and agrees with this plan of care. This note was dictated using voice recognition software and make contain errors or omissions. [facility] Disclaimer: The information contained in this section may have been updated after the patient was seen, as this information can be updated by other users. [employer]
== END | disposition home or self-care (01) ==
PROVIDERS: PCP Internal Medicine; Visit Provider Nurse Practitioner Family
DX: M51.16 Intervertebral disc disorders with radiculopathy, lumbar region (principal); M47.26 Other spondylosis with radiculopathy, lumbar region; M70.60 Trochanteric bursitis, unspecified hip
CPT/HCPCS: 99212; G0463

== ENCOUNTER 2022-10-18 07:55 | Day surgery (SDC) | payer OTHER, SELFPAY ==
[2022-10-18 08:15] VITALS: BP 149/85; PULSE 95; RESP 18; TEMP 36.3; O2SAT 98; BMI 42.9
[2022-10-18 08:48] VITALS: BP 123/65; PULSE 84; RESP 18; O2SAT 98
--- NOTE | 2022-10-18 08:59 | P.PCN_ITS ---
Procedure Date: 10/18/22 Time: 08:40 Anesthesiologist:: Vasyl Parmar CRNA Complications:: None Pre-procedure Diagnosis:: Left trochanteric bursitis Post-procedure Diagnosis:: Same Indications for Procedure:: Patient is a pleasant 37-year-old female comes our clinic today for left trochanteric bursa injection. She has extreme point tenderness over the left trochanteric bursa area. She describes the pain as constant, dull, sharp and stabbing at times. She rates pain 7/10 Procedure Details:: Procedure:Left trochanteric bursa injection under fluoroscopy We then moved to the left trochanteric bursa.~ C-arm fluoroscopy was used to view the left greater trochanter.~ The skin and subcutaneous tissues overlying the left greater trochanter were anesthetized using lidocaine, 1.5% and a 25- gauge needle.~ After this, a 22-gauge spinal needle was inserted and advanced until it contacted the left greater trochanter.~ Dye was injected and good spread was seen throughout the left trochanteric bursa. After this, approximately 5 mL of bupivacaine, 0.25% and Depo-Medrol, 40 mg was incrementally injected into the left trochanteric bursa.~ The patient tolerated the procedure well with no complications. Plan and Disposition:: Patient was discharged without incident.
== END 2022-10-18 08:48 | disposition home or self-care (01) ==
LOC: SC.PAINP 07:55
PROVIDERS: PCP Internal Medicine; Visit Provider Nurse Anesthetist, Certified Registered
DX: M70.62 Trochanteric bursitis, left hip (principal)
CPT/HCPCS: 20610; J1040

== ENCOUNTER 2023-02-04 08:25 | Emergency (ER) | payer OTHER, SELFPAY ==
[2023-02-04 08:30] VITALS: BP 128/78; PULSE 84; RESP 19; TEMP 36.9; O2SAT 98; BMI 44.1
[2023-02-04 08:54] VITALS: BP 128/78; PULSE 84; RESP 19; TEMP 36.9; O2SAT 98
[2023-02-04 08:54] LABS: UTC Strep Screen (Rapid) Negative (Negative)
--- NOTE | 2023-02-04 08:54 | EXP.UTC ---
Discharge Plan Disposition Patient Disposition: Home, Self-Care Condition: Good Prescriptions Prescriptions: New prednisone 10 mg tablet 10 mg PO BID 5 Days Qty: 10 0RF No Action lisinopril 2.5 mg tablet 2.5 mg PO ONCE sertraline 50 mg tablet 50 mg PO Q24H metformin 500 mg tablet extended release 24 hr 500 mg PO QID levothyroxine 50 mcg tablet 50 mcg PO DAILY Patient Comments: TAKE ONE TABLET BY MOUTH EVERY DAY IN THE MORNING Rybelsus 7 mg tablet 7 mg PO DIRECTED Patient Comments: TAKE ONE TABLET BY MOUTH EVERY DAY colestipol 1 gram tablet 1 g PO DIRECTED Patient Comments: TAKE TWO TABLETS BY MOUTH EVERY DAY AT BEDTIME Mirena 20 mcg/24 hours (7 yrs) 52 mg intrauterine device 1 device INTRAUTERI DIRECTED carvedilol 3.125 mg tablet 3.125 mg PO BID Rx Instructions: needs appt for further refills diclofenac sodium 75 mg tablet,delayed release (DR/EC) 75 mg PO BID Referrals Follow up/Referrals: Agapito Sauceda MD [Primary Care Provider] - See instructions Activity Restrictions/Add. Instructions Additional Instructions/Restrictions: Tylenol and ibuprofen as needed for pain or fever Humidifier/vaporizer/hot steamy shower Follow-up with primary care tomorrow. Follow-up immediately in the ER of the [facility] for new or worsening symptoms or no noticeable improvement over the next 48-72 hours. Stop smoking Start steroids today. Helps with inflammation therefore coughing and wheezing. Follow directions on package. gargle salt water Clinical Impressions Clinical Impression: Bronchitis Instructions Patient Instructions: Acute Bronchitis, DI for Strep Throat Discharge ED [facility]Azam [facility] [place] HPI General Stated complaint: Persistant sore throat Mode of Arrival: Ambulatory Source of Information: Patient Limitations: No Limitations Time Seen by Provider: 02/04/23 08:54 Description of Symptoms (Recalled from Triage Doc. by RN): PATIENT C/O SORE THROAT AND WHEEZING X 2 DAYS HEENT Symptoms (Recalled from RN notes): Yes Resp Symptoms (Recalled from RN notes): Yes Skin Symptoms (Recalled from RN notes): No MS Symptoms (Recalled from RN notes): No Functional Status (Recalled from RN notes): WNL History of Present Illness Provider Complaint: 38 yr old female presents for sore throat, and wheezing for 2 days without improvement Related Data Home Medications Medication Instructions Recorded Confirmed lisinopril 2.5 mg tablet 2.5 mg PO ONCE BLOOD PRESSURE 10/25/17 10/18/22 metformin 500 mg tablet,extended 500 mg PO QID Diabetes 10/25/17 10/18/22 release 24 hr sertraline 50 mg tablet 50 mg PO Q24H MOOD 10/25/17 10/18/22 colestipol 1 gram tablet 1 g PO DIRECTED Cholesterol 12/30/21 10/18/22 levothyroxine 50 mcg tablet 50 mcg PO DAILY THYROID 12/30/21 10/18/22 semaglutide 7 mg tablet (Rybelsus) 7 mg PO DIRECTED Diabetes 12/30/21 10/18/22 levonorgestrel 21 mcg/24 hours (8 1 device intrauterine DIRECTED 01/28/22 10/18/22 yrs) 52 mg intrauterine device control (Mirena) carvedilol 3.125 mg tablet 3.125 mg PO BID BLOOD PRESSURE 08/17/22 10/18/22 diclofenac sodium 75 mg 75 mg PO BID . 10/18/22 10/18/22 tablet,delayed release Previous Rx's Medication Instructions Recorded prednisone 10 mg tablet 10 mg PO BID 5 days #10 tabs 02/04/23 Allergies Allergy/AdvReac Type Severity Reaction Status Date / Time Androgenic Anabolic Steroid Allergy Mild Verified 10/18/22 08:16 Worker's Comp Is this a Worker's Comp case?: No [facility] Disclaimer: The information contained in this section may have been updated after the patient was seen, as this information can be updated by other users. Medical History , [employer]) Anxiety Asthma Depression Diabetes mellitus, type 2 Hypertension Thyroid disease Surgical History (Reviewed 02/04/23
== END 2023-02-04 09:03 | disposition home or self-care (01) ==
PROVIDERS: Emergency Provider Nurse Practitioner Family; PCP Internal Medicine
DX: J20.9 Acute bronchitis, unspecified (principal); R07.0 Pain in throat; F17.210 Nicotine dependence, cigarettes, uncomplicated; E11.9 Type 2 diabetes mellitus without complications; I10 Essential (primary) hypertension; E03.9 Hypothyroidism, unspecified; J45.909 Unspecified asthma, uncomplicated; F41.9 Anxiety disorder, unspecified; F32.A Depression, unspecified
CPT/HCPCS: 87880; 99212; 99214; G0463

== ENCOUNTER 2023-09-01 16:54 | Outpatient (CLI) | payer OTHER, SELFPAY ==
[2023-09-01 17:13] LABS: Basophils # 0.1 K/mm3 (0-0.2); Basophils % 0.6 % (0.1-2.0); Eosinophils # 0.2 K/mm3 (0.0-0.4); Eosinophils % 1.8 % (0.1-12.0); Hemoglobin 13.8 g/dL (12.2-16.2); Lymphocytes # 3.1 K/mm3 (0.7-4.5); Lymphocytes % 24.9 % (10-50); Mean Corpuscular HGB Conc 33.7 g/dL (31.8-35.4); Mean Corpuscular Hemoglobin 29.6 pg (27.0-31.2); Mean Corpuscular Volume 87.6 fl (81-99); Mean Platelet Volume 8.5 fl (7.4-10.4); Monocytes # 0.6 K/mm3 (0.1-1.0); Monocytes % 4.4 % (1.7-9.3); Neutrophils # 8.6 K/mm3 (1.8-7.8); Neutrophils % 68.4 % (37.0-80.0); Platelet Count 339 K/mm3 (142-424); Red Blood Count 4.68 M/mm3 (4.20-5.40); Red Cell Distribution Width 15.9 % (11.5-17.5); White Blood Count 12.6 K/mm3 (4.8-10.8)
[2023-09-01 17:35] LABS: Hemoglobin A1C 5.7 % (4.0-6.0)
[2023-09-01 17:44] LABS: Alanine Aminotransferase 19 U/L (12-78); Albumin Level 3.6 g/dl (3.5-5.0); Albumin/Globulin Ratio 1.3 (1.1-1.8); Alkaline Phosphatase 128 U/L (38-126); Anion Gap 12.2 mEq/L (5-15); Aspartate Amino Transferase 23 U/L (14-36); Bilirubin,Total 0.3 mg/dl (0.2-1.3); Blood Urea Nitrogen 10 mg/dl (7-17); Calcium 8.9 mg/dl (8.4-10.2); Carbon Dioxide 24 mmol/L (22.0-30.0); Chloride 106 mmol/L (98-107); Chol/HDL Ratio 4.3 (1-3.5); Cholesterol 137 mg/dl (140-200); Estimated Glomerular Filt Rate 140 ml/min (>60); GFR (African American) 169 ML/MIN (>60); Globulin 2.7 g/dL (1.3-3.2); Glucose 100 mg/dl (74-100); HDL Cholesterol 32 mg/dl (40-60); Potassium 4.2 mmoL/L (3.5-5.1); Sodium 138 mmol/L (136-145); Total Protein,Serum 6.3 g/dl (6.3-8.2); Triglycerides 76 mg/dl (30-150); VLDL Cholesterol 15 mg/dL (0-40)
[2023-09-01 17:55] LABS: Direct LDL Cholesterol 87.58 mg/dL (100-129)
[2023-09-05 09:32] LABS: Thyroid Stimulating Hormone 0.77 uIU/mL (0.465-4.68)
== END 2023-09-01 23:59 ==
LOC: LAB.DROPOF 16:55
PROVIDERS: PCP Internal Medicine; Visit Provider Internal Medicine
DX: E11.9 Type 2 diabetes mellitus without complications (principal); E03.9 Hypothyroidism, unspecified; E78.5 Hyperlipidemia, unspecified; J45.998 Other asthma; G47.33 Obstructive sleep apnea (adult) (pediatric); E66.01 Morbid (severe) obesity due to excess calories; Z68.41 Body mass index [BMI] 40.0-44.9, adult; Z79.84 Long term (current) use of oral hypoglycemic drugs
CPT/HCPCS: 80053; 80061; 83036; 84443; 85025

== ENCOUNTER 2023-12-24 18:58 | Emergency (ER) | payer OTHER, SELFPAY ==
[2023-12-24 19:05] VITALS: BP 133/73; PULSE 82; RESP 18; TEMP 36.4; O2SAT 97; BMI 41.1
--- NOTE | 2023-12-24 19:26 | EXP.UTC ---
Discharge Plan Disposition Patient Disposition: Home, Self-Care Condition: Good Prescriptions Prescriptions: New amoxicillin 500 mg tablet 500 mg PO BID 10 Days Qty: 20 0RF No Action lisinopril 2.5 mg tablet 2.5 mg PO ONCE sertraline 50 mg tablet 50 mg PO Q24H metformin 500 mg tablet extended release 24 hr 500 mg PO QID levothyroxine 50 mcg tablet 50 mcg PO DAILY Patient Comments: TAKE ONE TABLET BY MOUTH EVERY DAY IN THE MORNING Rybelsus 7 mg tablet 7 mg PO DIRECTED Patient Comments: TAKE ONE TABLET BY MOUTH EVERY DAY Mirena 20 mcg/24 hours (7 yrs) 52 mg intrauterine device 1 device INTRAUTERI DIRECTED carvedilol 3.125 mg tablet 3.125 mg PO BID Rx Instructions: needs appt for further refills Referrals Follow up/Referrals: Agapito Sauecda MD [Primary Care Provider] - See instructions Activity Restrictions/Add. Instructions Additional Instructions/Restrictions: Start antibiotics today be sure to take it as ordered with the full length of time although you should start feeling better in 24-48 hours. Change toothbrush and toothpaste 24-48 hours after starting antibiotics Tylenol or Motrin as needed for fever or pain Encourage fluids, water, Gatorade, Powerade, try cold fluids, popsicles, ice cream will make it feel better You are contagious for 24 hours. Avoid kissing anyone, no eating or drinking after anyone. You are contagious. Follow-up the ER for new or worsening symptoms or no noticeable improvement over the next 24-48 hours. Follow-up with PCP this week. rinse with warm salt water Clinical Impressions Clinical Impression: Strep sore throat Instructions Patient Instructions: DI for Strep Throat Discharge ED Provider: Isael ([facility])[place]am [facility] [place] General Stated complaint: sore throat Mode of Arrival: Ambulatory Source of Information: Patient Limitations: No Limitations Time Seen by Provider: 12/24/23 19:27 Description of Symptoms (Recalled from Triage Doc. by RN): Pt's symptoms are sore throat for the last 2 days. HEENT Symptoms (Recalled from RN notes): Yes Resp Symptoms (Recalled from RN notes): No Skin Symptoms (Recalled from RN notes): No MS Symptoms (Recalled from RN notes): No Functional Status (Recalled from RN notes): n/a History of Present Illness Provider Complaint: 38 yr old female presents for sore throat or 2 days Related Data Home Medications Medication Instructions Recorded Confirmed lisinopril 2.5 mg tablet 2.5 mg PO ONCE BLOOD PRESSURE 10/25/17 12/24/23 metformin 500 mg tablet,extended 500 mg PO QID Diabetes 10/25/17 12/24/23 release 24 hr sertraline 50 mg tablet 50 mg PO Q24H MOOD 10/25/17 12/24/23 levothyroxine 50 mcg tablet 50 mcg PO DAILY THYROID 12/30/21 12/24/23 semaglutide 7 mg tablet (Rybelsus) 7 mg PO DIRECTED Diabetes 12/30/21 12/24/23 levonorgestrel 21 mcg/24 hr (up to 1 device intrauterine DIRECTED 01/28/22 12/24/23 8 years) 52 mg intrauterine device control (Mirena) carvedilol 3.125 mg tablet 3.125 mg PO BID BLOOD PRESSURE 08/17/22 12/24/23 Previous Rx's Medication Instructions Recorded amoxicillin 500 mg tablet 500 mg PO BID 10 days #20 tabs 12/24/23 Allergies Allergy/AdvReac Type Severity Reaction Status Date / Time Androgenic Anabolic Steroid Allergy Mild Verified 12/24/23 19:18 Worker's Comp Is this a Worker's Comp case?: No [facility] Disclaimer: The information contained in this section may have been updated after the patient was seen, as this information can be updated by other users. Medical History , [employer]ER) Thyroid disease Depression Anxiety Diabetes mellitus, type 2 Asthma Hypertension Surgical History , [employer] RE[employer]ER) History of tonsillectomy History of cholecystectomy Family History , [employer]IL[employer] REPAIRER) No significant family history Social History , [employer] REPA[employer]ER) Smoking Status: Current every day smoker tobacco type: cigarettes packs per day: 1 alcohol intake: never substance use type: denies use current occupational status: employed Travel in the last 8 weeks: None housing: house ROS Obtained: Yes All systems reviewed & no additional complaints except as documented Constitutional Constitutional: Reports system reviewed and no additional complaints, except as documented and Reports as per HPI Eyes Eyes: Reports system reviewed and no additional complaints, except as documented ENT Ears, Nose, Mouth, and Throat: Reports system reviewed and no additional complaints, except as documented, Reports as per HPI and Reports sore throat Cardiovascular Cardiovascular: Reports system reviewed and no additional complaints, except as documented Respiratory Respiratory: Reports system reviewed and no additional complaints, except as documented Musculoskeletal Musculoskeletal: Reports system reviewed and no additional complaints, except as documented Integumentary/Breasts Skin/Breast: Reports system reviewed and no additional complaints, except as documented Neurologic Neurologic: Reports system reviewed and no additional complaints, except as documented Endocrine Endocrine: Reports system reviewed and no additional complaints, except as documented Hematologic/Lymphatic Henatologic/Lymphatic: Reports system reviewed and no additional complaints, except as documented Allergic/Immunologic Allergic/Immunologic: Reports system reviewed and no additional complaints, except as documented Physical Exam General General appearance: alert and in no apparent distress Head Head exam: atraumatic Eye Eye exam: Present normal appearance and PERRL ENT ENT exam: Present mucous membranes moist and TM's normal bilaterally Expanded ENT Exam Open Mouth Image: 1. exudate 2. exudate 3. exudate 4. exudate 5. exudate Throat exam: Present tonsillar erythema Respiratory Respiratory exam: Present normal lung sounds bilaterally Cardiovascular Cardiovascular exam: Present regular rate and normal rhythm Neurological Exam Neurological exam: Present alert and oriented X3 Psychiatric Psychiatric exam: Present normal affect Skin Skin exam: Present warm and intact Medical Decision Making Medical Records Medical records reviewed: Yes I reviewed the patient's medical records. Mookie Inquiry Pt receiving controlled substance: No Mookie was queried for this patient: No Vital Signs: 12/24/23 19:05 Temperature 97.6 F Temperature Source Oral Pulse Rate [Right Radial] 82 Respiratory Rate 18 Blood Pressure [Right Arm] 133/73 Blood Pressure Mean [Right Arm] 93 Blood Pressure Source [Right Arm] Automatic Cuff Blood Pressure Position [Right Arm] Sitting 02 Sat by Pulse Oximetry 97 Oxygen Delivery Method Room Air Lab Data Lab results reviewed: Yes I reviewed the patient's lab results.
[2023-12-24 19:42] LABS: UTC Strep Screen (Rapid) Negative (Negative)
[2023-12-24 19:43] VITALS: BP 133/73; PULSE 82; RESP 18; TEMP 36.4; O2SAT 97
== END 2023-12-24 19:43 | disposition home or self-care (01) ==
PROVIDERS: Emergency Provider Nurse Practitioner Family; PCP Internal Medicine
DX: J02.0 Streptococcal pharyngitis (principal); R07.0 Pain in throat
CPT/HCPCS: 87880; 99212; 99214; G0463

== ENCOUNTER 2024-03-12 08:01 | Emergency (ER) | payer OTHER, SELFPAY ==
[2024-03-12 08:10] VITALS: BP 108/49; PULSE 93; RESP 20; TEMP 37.2; O2SAT 97; BMI 39.9
--- NOTE | 2024-03-12 08:41 | ED_ITS ---
Discharge Plan Disposition Patient Disposition: Home, Self-Care Condition: Good Prescriptions Prescriptions: No Action lisinopril 2.5 mg tablet 2.5 mg PO ONCE sertraline 50 mg tablet 50 mg PO Q24H metformin 500 mg tablet extended release 24 hr 500 mg PO QID levothyroxine 50 mcg tablet 50 mcg PO DAILY Patient Comments: TAKE ONE TABLET BY MOUTH EVERY DAY IN THE MORNING Mirena 20 mcg/24 hours (7 yrs) 52 mg intrauterine device 1 device INTRAUTERI DIRECTED Rybelsus 7 mg tablet See Rx Instructions .ROUTE .COMPLEX Qty: 30 5RF Dose Instruction: TAKE ONE TABLET BY MOUTH EVERY DAY Rx Instructions: TAKE ONE TABLET BY MOUTH EVERY DAY carvedilol 3.125 mg tablet 3.125 mg PO BID Rx Instructions: needs appt for further refills amoxicillin 500 mg tablet 500 mg PO BID 10 Days Qty: 20 0RF Referrals Follow up/Referrals: Agapito Sauceda MD [Primary Care Provider] - See instructions Activity Restrictions/Add. Instructions Additional Instructions/Restrictions: *Monitor Temp, Over the counter Motrin or Tylenol as directed/as needed Tylenol every 4 hours and Motrin every 6 hours (as long as your family doctor has told you that you can take it) for fever or pain. and straight to ER if unable to lower temp less than 101.0 after medication given *Warm salt water gargles may help to soothe the throat *Throat Lozenges? *Warm fluids like tea with honey may help to soothe the throat? *Sleep elevated *Humidifier/Vaporizer Your throat swab was sent for culture. Those results are typically sent to your primary care. Be sure to follow up in 2-3 days with your family do ctor/primary care physician if no improvement so they can review those result and treat if necessary. If you don?t have a primary care doctor, I recommend you get one but in the mean time, you will have to return to a walk in clinic Follow up IMMEDIATELY for new or worsening symptoms or no Noticeable improvement over the next 48-72 hours. 911 for difficulty breathing or swallowing You were tested for today for COVID19 your test result should be back in the next few ?hours, you may check your results on the [facility] My Health Portal Clinical Impressions Clinical Impression: Viral syndrome Instructions Patient Instructions: Sore Throat, DI for Viral Syndrome Print Language Print Language: Mohawk Discharge ED Provider: Pauline Sierra [facility] [place] HPI General Stated complaint: fever, body aches, nausea Mode of Arrival: Ambulatory Source of Information: Patient Limitations: No Limitations Time Seen by Provider: 03/12/24 08:42 Description of Symptoms (Recalled from Triage Doc. by RN): PATIENT C/O FEVER, CHILLS, BODY ACHES, SORE THROAT, AND HEADACHE THAT STARTED YESTERDAY HEENT Symptoms (Recalled from RN notes): Yes Resp Symptoms (Recalled from RN notes): No Skin Symptoms (Recalled from RN notes): No MS Symptoms (Recalled from RN notes): No Functional Status (Recalled from RN notes): WNL History of Present Illness Provider Complaint: Patient states that she was recently seen and treated for UTI and symptoms was better but then yesterday she started with fever, chills, body aches, headache and sore throat that came on quickly so she came in to get checked Related Data Home Medications ?Medication ?Instructions ?Recorded ?Confirmed lisinopril 2.5 mg tablet 2.5 mg PO ONCE BLOOD PRESSURE 10/25/17 12/24/23 metformin 500 mg tablet,extended 500 mg PO QID Diabetes 10/25/17 12/24/23 release 24 hr sertraline 50 mg tablet 50 mg PO Q24H MOOD 10/25/17 12/24/23 levothyroxine 50 mcg tablet 50 mcg PO DAILY THYROID 12/30/21 12/24/23 levonorgestrel 21 mcg/24 hr (up to 1 device intrauterine DIRECTED 01/28/22 12/24/23 8 years) 52 mg intrauterine device control (Mirena) carvedilol 3.125 mg tablet 3.125 mg PO BID BLOOD PRESSURE 08/17/22 12/24/23 Previous Rx's ?Medication ?Instructions ?Recorded amoxicillin 500 mg tablet 500 mg PO BID 10 days #20 tabs 12/24/23 semaglutide 7 mg tablet (Rybelsus) See Rx Instructions .Route 03/05/24 .COMPLEX #30 tabs Allergies Allergy/AdvReac Type Severity Reaction Status Date / Time Androgenic Anabolic Steroid Allergy Mild Verified 12/24/23 19:18 Worker's Comp Is this a Worker's Comp case?: No [facility] Disclaimer: The information contained in this section may have been updated after the carolann ent was seen, as this information can be updated by other users. Medical History (Reviewed 12/24/23 @ 19:27 by Azam Kirkland ([facility]), COMPLAINT INVESTIGATOR) Thyroid disease Depression Anxiety Diabetes mellitus, type 2 Asthma Hypertension Surgical History (Reviewed 12/24/23 @ 19:27 by Azam Kirkland ([facility]), COMPLAINT INVESTIGATOR) History of tonsillectomy History of cholecystectomy Family History (Reviewed 12/24/23 @ 19:27 by Azam Kirkland ([facility]), COMPLAINT INVESTIGATOR) No significant family history Social History (Reviewed 12/24/23 @ 19:27 by Azam Kirkland ([facility]), COMPLAINT INVESTIGATOR) Smoking Status: Current every day smoker tobacco type: cigarettes packs per day: 1 alcohol intake: never substance use type: denies use current occupational status: employed Travel in the last 8 weeks: None housing: house ROS Obtained: Yes All systems reviewed & no additional complaints except as documented and Yes Systems reviewed as appropriate & no additional complaints except as documented Constitutional Constitutional: Reports system reviewed and no additional complaints, except as documented, Reports as per HPI, Reports body ache, Reports chills, Reports fever(s) and Reports headache(s) ENT Ears, Nose, Mouth, and Throat: Reports system reviewed and no additional complaints, except as documented, Reports as per HPI, Reports headache(s) and Reports sore throat Cardiovascular Cardiovascular: Reports system reviewed and no additional complaints, except as documented and Reports as per HPI Respiratory Respiratory: Reports system reviewed and no additional complaints, except as documented and Reports as per HPI Neurologic Neurologic: Reports headache(s) Physical Exam General General appearance: alert and in no apparent distress ENT ENT exam: Present mucous membranes moist Expanded ENT Exam Nose exam: Absent sinus tenderness Throat exam: Present other (Pharyngeal erythema noted with PND) Respiratory Respiratory exam: Present normal lung sounds bilaterally; Absent respiratory distress or wheezes Cardiovascular Cardiovascular exam: Present regular rate, normal rhythm and normal heart sounds Abdominal Exam Abdominal exam: Present soft and normal bowel sounds; Absent distention or tenderness Neurological Exam Neurological exam: Present alert, oriented X3 and normal gait Medical Decision Making Mookie Inquiry Pt receiving controlled substance: No Mookie was queried for this patient: No Vital Signs: 03/12/24 08:10 Temperature 99.0 F Temperature Source Oral Pulse Rate [Left Brachial] 93 H Respiratory Rate 20 Blood Pressure [Left Arm] 108/49 L Blood Pressure Mean [Left Arm] 68 Blood Pressure Source [Left Arm] Automatic Cuff Blood Pressure Position [Left Arm] Sitting 02 Sat by Pulse Oximetry 97 Oxygen Delivery Method Room Air Lab Data Lab results reviewed: Yes I reviewed the patient's lab results.
[2024-03-12 08:43] LABS: UTC Influenza A Antigen Negative (Negative); UTC Influenza B Antigen Negative (Negative)
[2024-03-12 08:44] LABS: UTC Strep Screen (Rapid) Negative (Negative)
[2024-03-12 08:52] VITALS: BP 108/49; PULSE 93; RESP 20; TEMP 37.2; O2SAT 97
[2024-03-12 08:55] LABS: Apearance,Urine Clear (Clear); Bilirubin,Urine Negative (Negative); Blood, Urine 3+ (Negative); Color,Urine Yellow (Yellow); Glucose,Urine (UA) Negative (Negative); Ketones,Urine Negative (Negative); PH,Urine 5.5 (5.0-8.5); Protein,Urine Negative (Negative); UTC Leukocyte Esterase,Urine Negative (Negative); UTC Nitrate,Urine Negative (Negative); Urobilinogen,Urine 0.2 EU/dl (0.2)
[2024-03-12 09:01] LABS: Coronavirus 19, PCR Not Detected (NotDetected); Influenza A, PCR Not Detected (NotDetected); Influenza B, PCR Not Detected (NotDetected)
== END 2024-03-12 08:56 | disposition home or self-care (01) ==
PROVIDERS: Emergency Provider Nurse Practitioner; PCP Internal Medicine
DX: R51.9 Headache, unspecified (principal); R50.9 Fever, unspecified; R07.0 Pain in throat; R11.0 Nausea; B34.9 Viral infection, unspecified
CPT/HCPCS: 81003; 87636; 87804; 87880; 99212; 99213; G0463

== ENCOUNTER 2024-03-22 18:59 | Emergency (ER) | payer OTHER, SELFPAY ==
[2024-03-22 19:24] VITALS: BP 120/72; PULSE 103; RESP 18; TEMP 36.8; O2SAT 95; BMI 39.9
--- NOTE | 2024-03-22 19:32 | EXP.UTC ---
Discharge Plan Disposition Patient Disposition: Home, Self-Care Condition: Good Prescriptions Prescriptions: New amoxicillin 875 mg tablet 875 mg PO Q12H Qty: 20 0RF benzonatate 100 mg capsule 100 mg PO TIDP PRN (Reason: Cough) Qty: 30 0RF No Action sertraline 50 mg tablet 50 mg PO Q24H metformin 500 mg tablet extended release 24 hr 500 mg PO QID Mirena 20 mcg/24 hours (7 yrs) 52 mg intrauterine device 1 device INTRAUTERI DIRECTED Rybelsus 7 mg tablet See Rx Instructions .ROUTE .COMPLEX Qty: 30 5RF Dose Instruction: TAKE ONE TABLET BY MOUTH EVERY DAY Rx Instructions: TAKE ONE TABLET BY MOUTH EVERY DAY levothyroxine 50 mcg tablet See Rx Instructions .ROUTE .COMPLEX Qty: 90 1RF Dose Instruction: TAKE ONE TABLET BY MOUTH EVERY DAY IN THE MORNING Rx Instructions: TAKE ONE TABLET BY MOUTH EVERY DAY IN THE MORNING lisinopril 2.5 mg tablet See Rx Instructions .ROUTE .COMPLEX Qty: 90 1RF Dose Instruction: TAKE ONE TABLET BY MOUTH EVERY DAY Rx Instructions: TAKE ONE TABLET BY MOUTH EVERY DAY carvedilol 3.125 mg tablet 3.125 mg PO BID Rx Instructions: needs appt for further refills amoxicillin 500 mg tablet 500 mg PO BID 10 Days Qty: 20 0RF Referrals Follow up/Referrals: Agapito Sauceda MD [Primary Care Provider] - See instructions Activity Restrictions/Add. Instructions Additional Instructions/Restrictions: Drink plenty of fluids. Take tylenol or ibuprofen for pain or fever. Take the medications as directed. Follow up with your regular doctor. GO TO THE ER FOR ANY WORSENING SYMPTOMS Clinical Impressions Clinical Impression: Pharyngitis Instructions Patient Instructions: Sore Throat, DI for Pharyngitis/Tonsillopharyngitis -- Adult Print Language Print Language: [place] Island[place] Discharge ED Provider: Arun Vásquez [facility] General Stated complaint: sore throat, fever Mode of Arrival: Ambulatory Source of Information: Patient Limitations: No Limitations Time Seen by Provider: 03/22/24 19:32 Description of Symptoms (Recalled from Triage Doc. by RN): c/o sore throat,cough,exposed to strep HEENT Symptoms (Recalled from RN notes): Yes Resp Symptoms (Recalled from RN notes): No Skin Symptoms (Recalled from RN notes): No MS Symptoms (Recalled from RN notes): No Functional Status (Recalled from RN notes): wnl Related Data Home Medications ?Medication ?Instructions ?Recorded ?Confirmed metformin 500 mg tablet,extended 500 mg PO QID Diabetes 10/25/17 12/24/23 release 24 hr sertraline 50 mg tablet 50 mg PO Q24H MOOD 10/25/17 12/24/23 levonorgestrel 21 mcg/24 hr (up to 1 device intrauterine DIRECTED 01/28/22 12/24/23 8 years) 52 mg intrauterine device control (Mirena) carvedilol 3.125 mg tablet 3.125 mg PO BID BLOOD PRESSURE 08/17/22 12/24/23 Previous Rx's ?Medication ?Instructions ?Recorded amoxicillin 500 mg tablet 500 mg PO BID 10 days #20 tabs 12/24/23 semaglutide 7 mg tablet (Rybelsus) See Rx Instructions .Route 03/05/24 .COMPLEX #30 tabs levothyroxine 50 mcg tablet See Rx Instructions .Route 03/13/24 .COMPLEX #90 tabs lisinopril 2.5 mg tablet See Rx Instructions .Route 03/13/24 .COMPLEX #90 tabs amoxicillin 875 mg tablet 875 mg PO Q12H #20 tabs 03/22/24 benzonatate 100 mg capsule 100 mg PO TIDP PRN Cough #30 caps 03/22/24 Allergies Allergy/AdvReac Type Severity Reaction Status Date / Time Androgenic Anabolic Steroid Allergy Mild Verified 12/24/23 19:18 Worker's Comp Is this a Worker's Comp case?: No [facility] Disclaimer: The information contained in this section may have been updated after the patient was seen, as this information can be updated by other users. Medical History , ANIMAL RESEARCHER) Thyroid disease Depression Anxiety Diabetes mellitus, type 2 Asthma Hypertension Surgical History (Reviewed
[2024-03-22 19:48] VITALS: BP 120/72; PULSE 103; RESP 20; TEMP 36.8; O2SAT 95
[2024-03-22 20:19] LABS: UTC Strep Screen (Rapid) Negative (Negative)
== END 2024-03-22 20:16 | disposition home or self-care (01) ==
PROVIDERS: Emergency Provider Nurse Practitioner Family; PCP Internal Medicine
DX: J02.9 Acute pharyngitis, unspecified (principal); R50.9 Fever, unspecified; R05.9 Cough, unspecified
CPT/HCPCS: 87635; 87880; 99212; 99214; G0463

== ENCOUNTER 2024-03-29 09:38 | Outpatient (CLI) | payer OTHER, SELFPAY ==
[2024-03-29 16:09] LABS: Microscopic, Urine URINE MICROSCOPIC (MICROSCOPIC)
[2024-03-29 16:37] LABS: Appearance,Urine CLEAR (Clear); Bilirubin,Urine Negative (Negative); Blood, Urine Negative (Negative); Color,Urine YELLOW (Yellow); Glucose,Urine (UA) Negative (Negative); Ketones,Urine Negative (Negative); Leukocyte Esterase,Urine Negative (Negative); Nitrate,Urine Negative (Negative); Protein,Urine Negative (Negative); Specific Gravity, Urine 1.015 (1.005-1.030); Urobilinogen,Urine 0.2 EU/dl (0.2)
[2024-03-29 17:38] LABS: RBC,Urine Occasional #/hpf (0-3); WBC,Urine Occasional #/hpf (0-3)
[2024-03-29 17:39] LABS: Bacteria,Urine Trace /lpf
== END 2024-03-29 23:59 | disposition home or self-care (01) ==
LOC: LAB.DROPOF 04-01 09:38
PROVIDERS: PCP Obstetrics & Gynecology; Visit Provider Obstetrics & Gynecology
DX: R39.9 Unspecified symptoms and signs involving the genitourinary system (principal)
CPT/HCPCS: 81001

== ENCOUNTER 2024-05-24 08:02 | Emergency (ER) | payer OTHER, SELFPAY ==
[2024-05-24 08:19] VITALS: BP 128/72; PULSE 83; RESP 20; TEMP 36.7; O2SAT 95; BMI 39.9
--- NOTE | 2024-05-24 08:23 | ED_ITS ---
Discharge Plan Disposition Patient Disposition: Home, Self-Care Condition: Good Prescriptions Prescriptions: New azithromycin [Zithromax] 250 mg tablet 250 mg PO UD DOSE PK Qty: 6 0RF Rx Instructions: Take two (2) tablets today, then one (1) tablet days #2 thru #5 benzonatate 100 mg capsule 100 mg PO TIDP PRN (Reason: Cough) Qty: 30 0RF methylprednisolone 4 mg Tablets,Dose Pack 4 mg PO DIRECTED 6 Days Qty: 21 0RF Rx Instructions: Take 1 pack as directed for 6 days albuterol sulfate [Ventolin HFA] 90 mcg/actuation HFA aerosol inhaler 2 puff inhalation Q6H PRN (Reason: shortness of breath or wheezing) Qty: 6.7 0RF No Action metformin 500 mg tablet extended release 24 hr 500 mg PO QID Mirena 20 mcg/24 hours (7 yrs) 52 mg intrauterine device 1 device INTRAUTERI DIRECTED sertraline 100 mg tablet PO albuterol sulfate 90 mcg/actuation HFA aerosol inhaler inhalation Patient Comments: INHALE TWO PUFFS BY MOUTH EVERY 6 HOURS NEEDED FOR asthma ondansetron HCl 4 mg tablet PO Patient Comments: TAKE ONE TABLET BY MOUTH EVERY 8 HOURS NEEDED FOR NAUSEA AND VOMITING amoxicillin-pot clavulanate 875-125 mg tablet 1 tab PO BID 7 Days Qty: 14 0RF Rybelsus 7 mg tablet See Rx Instructions .ROUTE .COMPLEX Qty: 30 5RF Dose Instruction: TAKE ONE TABLET BY MOUTH EVERY DAY Rx Instructions: TAKE ONE TABLET BY MOUTH EVERY DAY levothyroxine 50 mcg tablet See Rx Instructions .ROUTE .COMPLEX Qty: 90 1RF Dose Instruction: TAKE ONE TABLET BY MOUTH EVERY DAY IN THE MORNING Rx Instructions: TAKE ONE TABLET BY MOUTH EVERY DAY IN THE MORNING lisinopril 2.5 mg tablet See Rx Instructions .ROUTE .COMPLEX Qty: 90 1RF Dose Instruction: TAKE ONE TABLET BY MOUTH EVERY DAY Rx Instructions: TAKE ONE TABLET BY MOUTH EVERY DAY Trelegy Ellipta 100-62.5-25 mcg blister with device See Rx Instructions .ROUTE .COMPLEX Qty: 60 5RF Dose Instruction: INHALE 1 PUFF BY MOUTH EVERY DAY --RINSE MOUTH AFTER USE-- Rx Instructions: INHALE 1 PUFF BY MOUTH EVERY DAY --RINSE MOUTH AFTER USE-- amoxicillin 875 mg tablet 875 mg PO Q12H Qty: 20 0RF benzonatate 100 mg capsule 100 mg PO TIDP PRN (Reason: Cough) Qty: 30 0RF Referrals Follow up/Referrals: Agapito Sauceda MD [Primary Care Provider] - See instructions Activity Restrictions/Add. Instructions Additional Instructions/Restrictions: Drink plenty of fluids. Take tylenol or ibuprofen for pain or fever. Take the medications as directed. Follow up with your regular doctor. GO TO THE ER FOR ANY WORSENING SYMPTOMS Don't start the oral steroids (medrol dose pack) until tomorrow since you had the shot here Clinical Impressions Clinical Impression: Asthma exacerbation Instructions Patient Instructions: DI for Asthma -- Adult, Ceftriaxone Injection, Dexamethasone Injection Print Language Print Language: Bengali Discharge ED Provider: Arun Vásquez [facility] General Stated complaint: cough, congestion, wheezing Mode of Arrival: Ambulatory Source of Information: Patient Time Seen by Provider: 05/24/24 08:22 Description of Symptoms (Recalled from Triage Doc. by RN): SOB, COUGH, CONGESTION, WHEEZING HEENT Symptoms (Recalled from RN notes): Yes Resp Symptoms (Recalled from RN notes): Yes Skin Symptoms (Recalled from RN notes): No MS Symptoms (Recalled from RN notes): No Functional Status (Recalled from RN notes): WNL Related Data Home Medications ?Medication ?Instructions ?Recorded ?Confirmed metformin 500 mg tablet,extended 500 mg PO QID Diabetes 10/25/17 03/29/24 release 24 hr levonorgestrel 21 mcg/24 hr (up to 1 device intrauterine DIRECTED 01/28/22 03/29/24 8 years) 52 mg intrauterine device control (Mirena) albuterol sulfate 90 mcg/actuation inhalation 03/29/24 03/29/24 aerosol inhaler ondansetron HCl 4 mg tablet mg PO 03/29/24 03/29/24 sertraline 100 mg tablet mg PO 03/29/24 03/29/24 Previous Rx's ?Medication ?Instructions ?Recorded semaglutide 7 mg tablet (Rybelsus) See Rx Instructions .Route 03/05/24 .COMPLEX #30 tabs levothyroxine 50 mcg tablet See Rx Instructions .Route 03/13/24 .COMPLEX #90 tabs lisinopril 2.5 mg tablet See Rx Instructions .Route 03/13/24 .COMPLEX #90 tabs amoxicillin 875 mg tablet 875 mg PO Q12H #20 tabs 03/22/24 benzonatate 100 mg capsule 100 mg PO TIDP PRN Cough #30 caps 03/22/24 amoxicillin 875 mg-potassium 1 tab PO BID 7 days #14 tabs 04/08/24 clavulanate 125 mg tablet fluticasone fur. 100 mcg-umeclid See Rx Instructions .Route 04/25/24 62.5 mcg-vilant 25 mcg .COMPLEX #60 blisters inhalat.powder (Trelegy Ellipta) albuterol sulfate 90 mcg/actuation 2 puff inhalation Q6H PRN 05/24/24 aerosol inhaler (Ventolin HFA) shortness of breath or wheezing #6.7 grams azithromycin 250 mg tablet 250 mg PO UD DOSE PK #6 tabs 05/24/24 (Zithromax) benzonatate 100 mg capsule 100 mg PO TIDP PRN Cough #30 caps 05/24/24 methylprednisolone 4 mg tablets in 4 mg PO DIRECTED 6 days #21 tabs 05/24/24 a dose pack Allergies Allergy/AdvReac Type Severity Reaction Status Date / Time Androgenic Anabolic Steroid Allergy Mild Verified 03/29/24 14:02 Worker's Comp Is this a Worker's Comp case?: No [facility] Disclaimer: The information contained in this section may have been updated after the patient was seen, as this information can be updated by other users. Medical History , CAREER AGENT) Thyroid disease Depression Anxiety Diabetes mellitus, type 2 Asthma Hypertension Surgical History , CAREER AGENT) History of tonsillectomy History of cholecystectomy Family History , CAREER AGENT) No significant family history Social History , CAREER AGENT) Smoking Status: Current every day smoker tobacco type: cigarettes packs per day: 1 alcohol intake: never substance use type: denies use current occupational status: employed Travel in the last 8 weeks: None housing: house ROS Obtained: Yes All systems reviewed & no additional complaints except as documented Constitutional Constitutional: Reports poor appetite Eyes Eyes: Reports system reviewed and no additional complaints, except as documented ENT Ears, Nose, Mouth, and Throat: Reports as per HPI Cardiovascular Cardiovascular: Reports system reviewed and no additional complaints, except as documented and Denies chest pain Respiratory Respiratory: Denies shortness of breath, Reports chest congestion, Reports cough, Denies stridor and Denies wheezing Gastrointestinal Gastrointestingal: Reports system reviewed and no additional complaints, except as documented; Denies abdominal pain, diarrhea or vomiting Musculoskeletal Musculoskeletal: Reports system reviewed and no additional complaints, except as documented and Denies arthralgias Integumentary/Breasts Skin/Breast: Reports system reviewed and no additional complaints, except as documented and Denies rash Neurologic Neurologic: Denies paresthesias Allergic/Immunologic Allergic/Immunologic: Denies wheezing Physical Exam General General appearance: alert and in no apparent distress Head Head exam: atraumatic, normocephalic and normal inspection Eye Eye exam: Present normal appearance, PERRL and EOMI ENT ENT exam: Present normal exam, normal oropharynx, mucous membranes moist, TM's normal bilaterally and normal external ear exam Neck Neck exam: Present normal inspection, full ROM and trachea midline; Absent meningismus or lymphadenopathy Chest Chest inspection: Present normal inspection and symmetric chest wall rise; Absent tenderness Respiratory Respiratory exam: Present normal lung sounds bilaterally; Absent respiratory distress Cardiovascular Cardiovascular exam: Present regular rate and normal rhythm; Absent JVD Abdominal Exam Abdominal exam: Present soft and normal bowel sounds; Absent distention, tenderness or guarding Extremities Exam Extremities exam: Present normal inspection, full ROM and normal capillary refill; Absent calf tenderness Back Exam Back exam: Present normal inspection; Absent tenderness Neurological Exam Neurological exam: Present alert and oriented X3 Psychiatric Psychiatric exam: Present normal affect and normal mood Skin Skin exam: Present warm, dry, intact and normal color Lymphatic Lymphatic Findings: no adenopathy Medical Decision Making Medical Records Medical records reviewed: No I reviewed the patient's medical records. Screening: Per USPSTF and CDC recommendations, given the prevalence of disease in our region, it is our hospital?s policy to screen for HIV and viral Hepatitis for all patients aged 18 and over and those with ongoing risk factors. Mookie Inquiry Pt receiving controlled substance: No Vital Signs: 05/24/24 08:19 Temperature 98.0 F Temperature Source Oral Pulse Rate [Right Brachial] 83 Respiratory Rate 20 Blood Pressure [Left Arm] 128/72 Blood Pressure Mean [Left Arm] 90 02 Sat by Pulse Oximetry 95 Lab Data Lab results reviewed: Yes I reviewed the patient's lab results.
[2024-05-24] MEDS: cefTRIAXone 1GM VIAL 1 GM IM (08:40)
[2024-05-24] MEDS: DEXAMETHASONE 4MG/ML 1ML VIAL 8 MG IM (08:41)
[2024-05-24] MEDS: LIDOCAINE 1% 5ML PF VIAL IM (08:41)
[2024-05-24 08:48] VITALS: BP 128/72; PULSE 83; RESP 20; TEMP 36.7
== END 2024-05-24 08:59 | disposition home or self-care (01) ==
PROVIDERS: Emergency Provider Nurse Practitioner Family; PCP Internal Medicine
DX: J45.909 Unspecified asthma, uncomplicated (principal)
CPT/HCPCS: 96372; 99213; G0381; J0696; J1100

== ENCOUNTER 2024-07-27 08:08 | Inpatient (IN) | payer OTHER, SELFPAY ==
[2024-07-27] VITALS (28 sets, daily range): BP systolic 98–138; BP diastolic 53–82; PULSE 87–121; RESP 16–23; TEMP 36.6–37.1; O2SAT 85–97; BMI 39.9; BMI 39.0
--- NOTE | 2024-07-27 08:23 | ECG_ITS ---
APPROVED REPORT Exam: Resting ECG HR:89 bpm ECG Measurements Heart Rate 89 AXES FL 178 P 81 QRSd 77 QRS 105 QT 349 T 68 QTc 396 Conclusion SINUS RHYTHM RIGHT AXIS DEVIATION [QRS AXIS > 100] LOW QRS VOLTAGE IN PRECORDIAL LEADS [QRS DEFLECTION < 1.0 mV IN CHEST LEADS] ABNORMAL ECG Electronically signed by : MEGHANA REEVES, 07/30/2024 07:07:29
--- NOTE | 2024-07-27 08:29 | XR_ITS ---
PROCEDURE INFORMATION: Exam: XR Chest Exam date and time: 07/27/2024 8:26 AM Age: 39 years old Clinical indication: Cough and shortness of breath and wheezing; Additional info: Cough, wheeze TECHNIQUE: Imaging protocol: Radiologic exam of the chest. Views: 2 views. PA and Lateral COMPARISON: CR XR CHEST 2V 07/03/2019 12:25 PM FINDINGS: Tubes, catheters and devices: Surgical clips overlie the right abdomen. Lungs: Questionable minimal central perihilar pulmonary venous congestion or interstitial infiltrates within the lungs. The peripheral lungs are otherwise clear. Pleural spaces: No pleural effusion. No pneumothorax. Heart/Mediastinum: Mediastinum and peggy appear unremarkable. Bones/joints: No acute bony abnormality identified. Soft tissues: This study is severely limited by patient's large body habitus. IMPRESSION: Questionable central pulmonary venous congestion or infiltrates.
--- NOTE | 2024-07-27 08:30 | [facility].EDCP ---
Discharge Plan Disposition Patient Disposition: Admitted Chief Complaint: Shortness of Breath/Dyspnea Prescriptions Prescriptions: New clotrimazole 10 mg alisha 10 mg mucous membrane 5XDAY 10 Days Qty: 50 0RF ipratropium-albuterol 0.5 mg-3 mg(2.5 mg base)/3 mL solution for nebulization 3 ml inhalation Q20M PRN (Reason: shortness of breath or wheezing) Qty: 90 0RF Rx Instructions: Do not use more than 3 doses in a row No Action Mirena 20 mcg/24 hours (7 yrs) 52 mg intrauterine device 1 device INTRAUTERI DIRECTED ondansetron HCl 4 mg tablet PO Patient Comments: TAKE ONE TABLET BY MOUTH EVERY 8 HOURS NEEDED FOR NAUSEA AND VOMITING metformin 500 mg tablet extended release 24 hr 1,000 mg PO DAILY Qty: 180 1RF Rx Instructions: Take with evening meal Rybelsus 7 mg tablet See Rx Instructions .ROUTE .COMPLEX Qty: 30 5RF Dose Instruction: TAKE ONE TABLET BY MOUTH EVERY DAY Rx Instructions: TAKE ONE TABLET BY MOUTH EVERY DAY levothyroxine 50 mcg tablet See Rx Instructions .ROUTE .COMPLEX Qty: 90 1RF Dose Instruction: TAKE ONE TABLET BY MOUTH EVERY DAY IN THE MORNING Rx Instructions: TAKE ONE TABLET BY MOUTH EVERY DAY IN THE MORNING lisinopril 2.5 mg tablet See Rx Instructions .ROUTE .COMPLEX Qty: 90 1RF Dose Instruction: TAKE ONE TABLET BY MOUTH EVERY DAY Rx Instructions: TAKE ONE TABLET BY MOUTH EVERY DAY Trelegy Ellipta 100-62.5-25 mcg blister with device See Rx Instructions .ROUTE .COMPLEX Qty: 60 5RF Dose Instruction: INHALE 1 PUFF BY MOUTH EVERY DAY --RINSE MOUTH AFTER USE-- Rx Instructions: INHALE 1 PUFF BY MOUTH EVERY DAY --RINSE MOUTH AFTER USE-- sertraline 100 mg tablet See Rx Instructions .ROUTE .COMPLEX Qty: 90 1RF Dose Instruction: TAKE ONE TABLET BY MOUTH EVERY DAY Rx Instructions: TAKE ONE TABLET BY MOUTH EVERY DAY albuterol sulfate [Ventolin HFA] 90 mcg/actuation HFA aerosol inhaler 2 puff inhalation Q6H PRN (Reason: shortness of breath or wheezing) Qty: 6.7 0RF Referrals Follow up/Referrals: Agapito Sauceda MD [Primary Care Provider] - See instructions Clinical Impressions Clinical Impression: Candidiasis of mouth, Pneumonia, Asthmaticus, status Print Language Print Language: Turkmen Discharge ED Provider: Hesham Ovalle HPI General Chief Complaint: Shortness of Breath/Dyspnea Stated Complaint: cough soa Time Seen by Provider: 07/27/24 08:29 History of Present Illness HPI narrative: Patient is a 39-year-old female with past medical history of chronic asthma managed on long-term therapy intermittently due to recurrent thrush infections resulting in poor compliance, metered-dose inhaler for acute exacerbations who presents emergency department for evaluation of cough and shortness of breath. Onset was acute over the last 72 hours, there is associated dry cough and wheezing, no chest pain. Patient is also concerned she has a current thrush infection as well. Positive sick contacts. No other acute complaints at this time. Related Data Home Medications ?Medication ?Instructions ?Recorded ?Confirmed levonorgestrel (Mirena) 1 device intrauterine DIRECTED 01/28/22 07/10/24 control ondansetron HCl 4 mg tablet mg PO 03/29/24 07/10/24 Previous Rx's ?Medication ?Instructions ?Recorded semaglutide 7 mg tablet (Rybelsus) See Rx Instructions .Route 03/05/24 .COMPLEX #30 tabs levothyroxine 50 mcg tablet See Rx Instructions .Route 03/13/24 .COMPLEX #90 tabs lisinopril 2.5 mg tablet See Rx Instructions .Route 03/13/24 .COMPLEX #90 tabs fluticasone fur. 100 mcg-umeclid See Rx Instructions .Route 04/25/24 62.5 mcg-vilant 25 mcg .COMPLEX #60 blisters inhalat.powder (Trelegy Ellipta) albuterol sulfate 90 mcg/actuation 2 puff inhalation Q6H PRN 05/24/24 aerosol inhaler (Ventolin HFA) shortness of breath or wheezing #6.7 grams metformin 500 mg tablet,extended 1,000 mg (2 x 500 mg) PO DAILY 06/17/24 release 24 hr Diabetes #180 tabs sertraline 100 mg tablet See Rx Instructions .Route 06/20/24 .COMPLEX #90 tabs clotrimazole 10 mg alisha 10 mg mucous membrane 5XDAY Thrush 07/27/24 10 days #50 tabs ipratropium 0.5 mg-albuterol 3 mg 3 ml inhalation Q20M PRN shortness 07/27/24 (2.5 mg base)/3 mL nebulization of breath or wheezing #90 mL soln Allergies Allergy/AdvReac Type Severity Reaction Status Date / Time Androgenic Anabolic Steroid Allergy Mild Verified 07/10/24 11:59 [facility] Disclaimer: The information contained in this section may have been updated after the patient was seen, as this information can be updated by other users. Medical History Thyroid disease Depression Anxiety Diabetes mellitus, type 2 Asthma Hypertension Surgical History History of tonsillectomy History of cholecystectomy Family History Other No significant family history Social History Smoking Status: Current every day smoker tobacco type: cigarettes packs per day: 1 alcohol intake: never substance use type: denies use current occupational status: employed Travel in the last 8 weeks: None housing: house Have you lived/traveled outside [place] in past 30 days?: No Contact w/someone who lives/traveled outside US past 30 days?: No Exposure to someone with infectious disease in past 14 days?: No Do you have a fever (greater than 100.4 F or 38 C)?: No Have you tested positive for COVID-19: No Exposed to someone with COVID-19 in past 14 days?: No Do you have a sore throat?: No Do you have a cough?: Yes Do you have any weakness?: No Do you have any diarrhea?: No Are you experiencing any unusual bleeding?: No Do you have any muscle aches/pain?: No Do you have any abdominal pain?: No Are you experiencing loss of taste or smell?: No Other Medical History Have you received the Flu Vaccine for this season: No Have you received the Pneumonia Vaccine: Yes ROS Obtained: Yes Systems reviewed as appropriate & no additional complaints except as documented Physical Exam General General appearance: alert and in no apparent distress Head Head exam: atraumatic and normocephalic Eye Eye exam: Present PERRL ENT ENT exam: Present mucous membranes moist; Absent normal exam (Scattered white plaque over the dorsum of the tongue, no ulcerations posterior oropharynx uvula midline no swollen tonsils.) Neck Neck exam: Present normal inspection Chest Chest inspection: Present normal inspection and symmetric chest wall rise Respiratory Respiratory exam: Present wheezes (Expiratory phase throughout); Absent normal lung sounds bilaterally, respiratory distress or accessory muscle use Cardiovascular Cardiovascular exam: Present regular rate and normal rhythm Abdominal Exam Abdominal exam: Present soft Extremities Exam Extremities exam: Present normal inspection Neurological Exam Neurological exam: Present alert Psychiatric Psychiatric exam: Present normal affect Skin Skin exam: Present warm and dry HEART Score HEART Score HEART Score assessment performed?: No Critical Care Critical Care Time Critical Care Time: Yes Attestation: On 07/27/24, the high probability of a clinically significant, sudden or life threatening deterioration of the following system(s) required my full and direct attention, intervention and personal management. The time I documented below is in addition to time spent performing reported procedures but includes the following listed in this critical care notation. Total Time Total Critical Care Time: 60 Medical Decision Making Mookie Inquiry Pt receiving controlled substance: No Vital Signs Vital Signs: 07/27/24 08:25 07/27/24 09:59 07/27/24 10:00 Temperature 97.9 F Temperature Source Oral Pulse Rate Pulse Rate [Right] 112 H Respiratory Rate 23 Blood Pressure Blood Pressure [Right Arm] 137/66 Blood Pressure Mean Blood Pressure Mean [Right Arm] 89 Blood Pressure Source [Right Arm] Automatic Cuff 02 Sat by Pulse Oximetry 97 86 L 92 L Oxygen Delivery Method Room Air Room Air Nasal Cannula Oxygen Flow Rate (LPM) 2 07/27/24 10:00 07/27/24 10:30 07/27/24 11:00 Temperature Temperature Source Pulse Rate 95 H 94 H 105 H Pulse Rate [Right] Respiratory Rate Blood Pressure 128/65 114/63 123/70 Blood Pressure [Right Arm] Blood Pressure Mean Blood Pressure Mean [Right Arm] Blood Pressure Source [Right Arm] 02 Sat by Pulse Oximetry 87 L 85 L 89 L Oxygen Delivery Method Non-Rebreather Non-Rebreather Non-Rebreather Oxygen Flow Rate (LPM) 07/27/24 11:30 07/27/24 12:04 07/27/24 12:06 Temperature Temperature Source Pulse Rate 116 H 121 H Pulse Rate [Right] Respiratory Rate Blood Pressure 125/72 138/70 Blood Pressure [Right Arm] Blood Pressure Mean Blood Pressure Mean [Right Arm] Blood Pressure Source [Right Arm] 02 Sat by Pulse Oximetry 86 L 89 L 88 L Oxygen Delivery Method Non-Rebreather Nasal Cannula Nasal Cannula Oxygen Flow Rate (LPM) 6 07/27/24 13:00 07/27/24 13:30 07/27/24 14:00 Temperature Temperature Source Pulse Rate 106 H 108 H 106 H Pulse Rate [Right] Respiratory Rate Blood Pressure 122/67 112/60 105/56 L Blood Pressure [Right Arm] Blood Pressure Mean 81 77 72 Blood Pressure Mean [Right Arm] Blood Pressure Source [Right Arm] 02 Sat by Pulse Oximetry 89 L 88 L 91 L Oxygen Delivery Method Oxygen Flow Rate (LPM) 07/27/24 14:15 Temperature Temperature Source Pulse Rate 106 H Pulse Rate [Right] Respiratory Rate Blood Pressure 105/56 L Blood Pressure [Right Arm] Blood Pressure Mean Blood Pressure Mean [Right Arm] Blood Pressure Source [Right Arm] 02 Sat by Pulse Oximetry 90 L Oxygen Delivery Method Oxygen Flow Rate (LPM) Lab Data Labs: Lab Results 07/27/24 08:25: WBC 11.0 H, RBC 5.31, Hgb 15.2, Hct 45.7, MCV 86.1, MCH 28.6, MCHC 33.3, RDW 15.0, Plt Count 358, MPV 10.7 H, Neut % (Auto) 72.4, Lymph % (Auto) 15.8, [place] % (Auto) 9.3, Eos % (Auto) 1.7, Baso % (Auto) 0.5, Neut # (Auto) 8.0 H, Lymph # (Auto) 1.7, [place] # (Auto) 1.0, Eos # (Auto) 0.2, Baso # (Auto) 0.1, D-Dimer 0.92 H, Sodium 135 L, Potassium 4.4, Chloride 105, Carbon Dioxide 25, Anion Gap 9.4, BUN 10, Creatinine 0.60, Estimated Creat Clear 221, Estimated GFR 112, Est GFR ( Amer) 136, Glucose 114 H, Calcium 9.0, Total Bilirubin 0.5, AST 36, ALT 25, Alkaline Phosphatase 111, Total Protein 7.3, Albumin 4.0, Globulin 3.3 H, Albumin/Globulin Ratio 1.2, Serum HCG, Qual Negative, HIV Ag/Ab Combo Qual Negative 07/27/24 09:03: SARS-CoV-2 (PCR) Not detected, Influenza A Untype (PCR) Not detected, Influenza Type B (PCR) Not detected 07/27/24 10:05: VBG pH 7.39, VBG pCO2 34.8 L, VBG pO2 38.5, VBG HCO3 20.4 L, VBG Total CO2 21.5 L, VBG O2 Saturation 78.5 H, VBG Base Excess -4.6 L, VBG Lactic Acid 1.5 07/27/24 08:25 07/27/24 08:25 Response Orders (Tests/Meds): ED MEDICATIONS Generic Name Dose Route Start Last Admin Trade Name Freq PRN Reason Stop Dose Admin Albuterol/Ipratropium 3 ml 07/27/24 18:00 Ipratropium/Albuterol 3 Ml Formerly [facility] 08/26/24 17:59 Q4RT [facility] Dexamethasone Sodium Phosphate 6 mg 07/27/24 18:00 Dexamethasone 4mg/Ml 1ml Vial IV 08/26/24 17:59 1800 [facility] Ceftriaxone Sodium 1 gm/ 50 mls @ 100 mls/hr 07/27/24 14:26 Sodium Chloride IV 07/27/24 14:55 ONCE ONE Insulin Human Lispro 0 unit 07/27/24 16:30 Humalog 100 Units/Ml 10ml Vial ([facility]) SUBCUT 08/26/24 16:29 ACHS [facility] Protocol Discontinued Medications Generic Name Dose Route Start Last Admin Trade Name Freq PRN Reason Stop Dose Admin Albuterol Sulfate 20 mg 07/27/24 09:59 07/27/24 10:08 Albuterol 0.083% 2.5 Mg/3 Ml [facility] 07/27/24 10:00 20 mg ONCE ONE Administration Albuterol/Ipratropium 9 ml 07/27/24 08:29 07/27/24 08:53 Ipratropium/Albuterol 3 Ml [facility] 07/27/24 08:30 9 ml ONCE ONE Administration Doxycycline Hyclate 100 mg/ 250 mls @ 166.667 mls/hr 07/27/24 09:59 07/27/24 11:58 Sodium Chloride IV 07/27/24 10:00 166.667 mls/hr ONCE ONE Administration Magnesium Sulfate 2 gm in 50 mls @ 50 mls/hr 07/27/24 09:59 12/28/24 10:11 Magnesium Sulfate 2gm/50ml Premix IV 07/27/24 10:58 50 mls/hr ONCE ONE Administration Iopamidol 70 ml 07/27/24 12:32 07/27/24 12:33 Iopamidol-370 (76%);100ml Bottle IV 07/27/24 12:33 70 ml ONCE ONE Administration Methylprednisolone Sodium Succinate 125 mg 07/27/24 08:29 07/27/24 08:52 Methylprednisolone Sod Succ 125mg Vial IV 07/27/24 08:30 125 mg ONCE ONE Administration Nystatin 500,000 unit 07/27/24 14:27 Nystatin Susp 500,000 Units/5ml Udc PO 07/27/24 14:28 ONCE ONE Sodium Chloride 10 ml 07/27/24 12:32 07/27/24 12:33 Sodium Chloride 0.9% 10ml Syr (Rad Only) IV 07/27/24 12:33 10 ml ONCE ONE Administration Sodium Chloride 50 ml 07/27/24 12:32 07/27/24 12:33 0.9 % Sodium Chloride 50 Ml Vial IV 07/27/24 12:33 50 ml ONCE ONE Administration ORDERS Category Date Time Status CT angio chest PE protocol Stat Cat Scan 07/27/24 12:21 Completed CXR 2 view (NOT portable) [XR chest 2V] Stat Exams 07/27/24 08:29 Completed CBC w/Auto Diff [Complete Blood Count Auto Diff] Stat Lab 07/27/24 08:25 Completed CMP [Comprehensive Metabolic Panel] Stat Lab 07/27/24 08:25 Completed Complete Blood Count Auto Diff AMLAB Lab 07/28/24 06:00 Ordered Comprehensive Metabolic Panel AMLAB Lab 07/28/24 06:00 Ordered D-Dimer Stat Lab 07/27/24 08:25 Completed HIV Combo Routine Lab 07/27/24 08:25 Completed Hep C Ab with Reflex to RNA Stat Lab 07/27/24 08:25 Received Magnesium AMLAB Lab 07/28/24 06:00 Ordered Rapid PCR Covid and Flu A/B Stat Lab 07/27/24 09:03 Completed Serum [HCG Qualitative, Serum] Stat Lab 07/27/24 08:25 Completed Blood Culture Stat Micro 07/27/24 11:57 Received VBG [Venous Blood Gas] Stat RT 07/27/24 10:05 Completed ECG Data Tracing #1: ECG Narrative: Independently interpreted by me rate is 89, rhythm is regular, axis is borderline leftward deviated, no ST elevation in anatomical contiguous leads, QTc 396 MDM Narrative Medical Decision Narrative: In summary patient is a 39-year-old female past medical history described above presents emergency department for evaluation of cough, shortness of breath in the setting of poorly controlled asthma. Patient is hemodynamically stable and nontoxic-appearing upon arrival, afebrile. Based on history and physical exam with positive sick contacts at home differential includes viral mediated asthma exacerbation, pneumonia, among others. Clinically patient has a thrush infection likely from her inhaled corticosteroid which will be treated with p.o. medications. Limited workup will be conducted with two-view chest x-ray, viral swab. Work with hematologic labs in more advanced diagnostic imaging was considered however will be deferred at this time. No chest pain to warrant ACS workup at this point. Initial interventions include DuoNebs x 3, methylprednisolone. Chest x-ray informally interpreted by me, there are interstitial opacities and positive spine sign consistent with atypical pneumonia for me which will be treated with doxycycline. Upon repeat evaluation patient had continued biphasic wheezing which is louder than originally suggestive of opening of her clamp down airways and required 2 L of oxygen to maintain oxygen saturations greater than 90%. Given this hematologic labs will now be obtained IV magnesium sulfate will be administered patient will be given continuous albuterol for 1 hour will be reassessed. D-dimer is elevated CTA chest will be obtained to rule out pulmonary embolism. Compensated acid-base status however patient is on significant oxygen 6 L nasal cannula which is rapid deterioration from my initial evaluation. Her lungs are opening up after continuous albuterol she does have some persistent wheezing however is ventilating appropriately. CTA chest formal read bilateral pulmonary opacities concerning for acute infiltrates, no large central pulmonary embolism. Sepsis bolus was considered however patient is euvolemic on my evaluation will be deferred. Upon repeat evaluation patient had persistent oxygen requirement so we will broaden antibiotics to ceftriaxone the case discussed with Dr. Dietz regarding management patient will be admitted to their service for continued evaluation at this time. For oropharyngeal candidiasis nystatin will be administered in the emergency room.
[2024-07-27] MEDS: METHYLPREDNISOLONE SOD SUCC 125MG VIAL 125 MG IV (08:52)
[2024-07-27] MEDS: IPRATROPIUM/ALBUTEROL 3 ML NEB 9 ML IH (08:53)
[2024-07-27 09:09] LABS: Coronavirus 19, PCR Not Detected (NotDetected); Influenza A, PCR Not Detected (NotDetected); Influenza B, PCR Not Detected (NotDetected)
[2024-07-27 09:09] LABS: HCG Qualitative, Serum Negative (Negative)
--- NOTE | 2024-07-27 09:58 | PC.NURSE ---
dr king at bedside to reevaluate pt
[2024-07-27] MEDS: ALBUTEROL 0.083% 2.5 MG/3 ML NEB 20 MG IH (10:08)
[2024-07-27 10:10] LABS: Chloride 105 mmol/L (98-107); Potassium 4.4 mmoL/L (3.5-5.1); Sodium 135 mmol/L (136-145)
[2024-07-27 10:11] LABS: Basophils # 0.1 K/mm3 (0-0.2); Basophils % 0.5 % (0.1-2.0); Eosinophils # 0.2 K/mm3 (0.0-0.4); Eosinophils % 1.7 % (0.1-12.0); Hematocrit 45.7 % (37.0-47.0); Hemoglobin 15.2 g/dL (12.2-16.2); Lymphocytes # 1.7 K/mm3 (0.7-4.5); Lymphocytes % 15.8 % (10-50); Mean Corpuscular HGB Conc 33.3 g/dL (31.8-35.4); Mean Corpuscular Hemoglobin 28.6 pg (27.0-31.2); Mean Corpuscular Volume 86.1 fl (81-99); Mean Platelet Volume 10.7 fl (7.4-10.4); Monocytes % 9.3 % (1.7-9.3); Neutrophils % 72.4 % (37.0-80.0); Platelet Count 358 K/mm3 (142-424); Red Blood Count 5.31 M/mm3 (4.20-5.40)
[2024-07-27] MEDS: MAGNESIUM SULFATE IN WATER 2 GM/50 ML PIGGYBACK IV (10:11)
[2024-07-27 10:12] LABS: Blood Urea Nitrogen 10 mg/dl (7-17); Creatinine Clearance Estimated 221 mL/min (50-200); Estimated Glomerular Filt Rate 112 ml/min (>60); GFR (African American) 136 ML/MIN (>60)
[2024-07-27 10:13] LABS: Alanine Aminotransferase 25 U/L (12-78); Albumin/Globulin Ratio 1.2 (1.1-1.8); Alkaline Phosphatase 111 U/L (38-126); Anion Gap 9.4 mEq/L (5-15); Aspartate Amino Transferase 36 U/L (14-36); Bilirubin,Total 0.5 mg/dl (0.2-1.3); Carbon Dioxide 25 mmol/L (22.0-30.0); Globulin 3.3 g/dL (1.3-3.2); Glucose 114 mg/dl (74-100); Total Protein,Serum 7.3 g/dl (6.3-8.2)
[2024-07-27 10:17] LABS: Lactate Venous 1.5 mmol/L (0.4-2.0); VBG Base Excess -4.6 mmol/L (-2.4-2.3); VBG HCO3 20.4 mmol/L (23-30); VBG Oxygen Saturation 78.5 % (50-70); VBG PCO2 34.8 mmol/L (35-51); VBG PH 7.39 mmol/L (7.31-7.41); VBG PO2 38.5 mmol/L (28-40); VBG Total CO2 21.5 mmol/L (23-27)
--- NOTE | 2024-07-27 10:35 | PC.NURSE ---
ROUNDED ON PT, NO NEEDS AT THIS TIME. CALL LIGHT WITHIN REACH
[2024-07-27 11:16] LABS: HIV Combo NEGATIVE (Negative)
[2024-07-27] MEDS: DOXYCYCLINE HYCLATE 100 MG in 0.9 % SODIUM CHLORIDE 250 ML 166.667 MG IV (11:58)
[2024-07-27 12:04] LABS: D-Dimer 0.92 ug/mL (0.0-0.5)
--- NOTE | 2024-07-27 12:21 | CT_ITS ---
PROCEDURE INFORMATION: Exam: CTA Chest With Contrast Exam date and time: 07/27/2024 12:33 PM Age: 39 years old Clinical indication: Shortness of breath; Additional info: SOB tachy cough TECHNIQUE: Imaging protocol: Computed tomographic angiography of the chest with contrast. Exam focused on the arteries. 3D rendering (Not supervised by radiologist): MIP and/or 3D reconstructed images were created by the technologist. Radiation optimization: All CT scans at this facility use at least one of these dose optimization techniques: automated exposure control; mA and/or kV adjustment per patient size (includes targeted exams where dose is matched to clinical indication); or iterative reconstruction. Contrast material: ISOVUE; Contrast volume: 907 ml; Contrast route: INTRAVENOUS (IV); COMPARISON: CR XR CHEST 2V 07/27/2024 8:26 AM. Chest radiographs dated 07/03/2019. FINDINGS: Pulmonary arteries: Limited evaluation of the pulmonary arteries. There is significant motion artifact which limits visualization of the pulmonary arteries. No gross evidence for large central pulmonary embolus. Suboptimal opacification of the pulmonary arteries at the time of imaging. Great vessels off aortic arch: Unremarkable. Aorta: No aortic aneurysm or dissection. Lungs: Evidence for lung calcified granulomas in the bilateral chest. Ground-glass interstitial pulmonary opacities are present throughout bilateral lungs, upper and lower chest bilaterally. Linear interstitial and alveolar density identified within the bilateral lung bases. Opacities identified within the bilateral lower lobes, lingula right middle lobe lung bases. No pulmonary venous congestion is demonstrated within the lungs. No consolidation within the upper lungs. Pleural spaces: Unremarkable. No pneumothorax. No pleural effusion. Heart: The heart does not appear enlarged. No significant pericardial effusion. Lymph nodes: No evidence for enlarged lymphadenopathy. Liver: Liver demonstrates diffuse [id number] hypodensity. Incomplete visualization of the liver on this study. Gallbladder and biliary ducts: The gallbladder has been surgically removed. Surgical clips identified in the gallbladder fossa. Spleen: The spleen is enlarged. Spleen measurement: 14 cm greatest length on axial image 118. Incomplete visualization of the spleen on this study. Bones/joints: Mild generalized bony degenerative changes. Bony structures appear otherwise unremarkable. Soft tissues: Unremarkable. Other findings: Limited study with motion artifact. IMPRESSION: 1. No gross evidence for large central pulmonary embolus. Significantly limited assessment of the pulmonary arteries. 2. Diffuse bilateral pulmonary opacities concerning for acute infiltrates, pneumonia or pneumonitis. Opacities appear most prominent in the lung bases. 3. [id number] hepatic steatosis. 4. Splenomegaly. Possible portal venous hypertension.
[2024-07-27] MEDS: 0.9 % SODIUM CHLORIDE 50 ML VIAL IV (12:33)
[2024-07-27] MEDS: IOPAMIDOL-370 (76%);100ML BOTTLE 70 ML IV (12:33)
[2024-07-27] MEDS: SODIUM CHLORIDE 0.9% 10ML SYR (RAD ONLY) 10 ML IV (12:33)
--- NOTE | 2024-07-27 14:27 | P.HP_ITS ---
History of Present Illness *Admission Date: 07/27/24 *Reason for visit:: Short of breath *History of present illness: Ms. Castano is a 39-year-old female with history of obesity, diabetes, hypothyroid, asthma, tobacco use disorder. She presents to the ER with worsening shortness of breath over the past 3 to 4 days. Multiple sick exposures with numerous family members coughing and sick for the past 2 to 4 weeks. She reports that she became more short of breath especially with exertion. Progressed to the point that today she could not catch her breath. Has tried to use her inhaler at home with no benefit. Continues to smoke up until 3 days ago. States that normally when she has an asthma attack, steroids and antibiotics x 1 will get her feeling better and get her home. Found to be frankly hypoxic on arrival to the ER. Serial nebulizers improved air movement but patient necessitating 6 L to maintain sats above 90%. Chest imaging obtained showing pneumonia. Medicine consulted for admission and treatment of asthma exacerbation, respiratory failure, pneumonia. On arrival to the floor, patient appears more comfortable. In no acute distress but still necessitating 6 L to sat 90 to 91%. Afebrile. Talking in complete sentences. Alert and oriented x 4. PFSH [facility] Disclaimer: The information contained in this section may have been updated after the patient was seen, as this information can be updated by other users. Medical History (Updated 07/27/24 @ 17:38 by Arun Dietz MD) JORGE LUIS (obstructive sleep apnea) Thyroid disease Depression Anxiety Diabetes mellitus, type 2 Asthma Hypertension Surgical History History of tonsillectomy History of cholecystectomy Family History Other No significant family history Social History (Updated 07/27/24 @ 17:04 by Samaria Taylor RN) Smoking Status: Current every day smoker tobacco type: cigarettes packs per day: 1 alcohol intake: never substance use type: denies use current occupational status: employed Travel in the last 8 weeks: None housing: house Have you lived/traveled outside [place] in past 30 days?: No Contact w/someone who lives/traveled outside [place] past 30 days?: No Exposure to someone with infectious disease in past 14 days?: No Do you have a fever (greater than 100.4 F or 38 C)?: No Have you tested positive for COVID-19: No Exposed to someone with COVID-19 in past 14 days?: No Do you have a sore throat?: No Do you have a cough?: Yes Do you have any weakness?: No Do you have any diarrhea?: No Are you experiencing any unusual bleeding?: No Do you have any muscle aches/pain?: No Do you have any abdominal pain?: No Are you experiencing loss of taste or smell?: No Other Medical History Have you received the Flu Vaccine for this season: No Have you received the Pneumonia Vaccine: Yes Review of Systems Review of Systems Review of systems (narrative): 14 point review of systems performed, pertinent positives and negatives as per HPI Meds Home Medications and Allergies Home Medications ?Medication ?Instructions ?Recorded ?Confirmed ?Type levonorgestrel (Mirena) 1 device intrauterine DIRECTED 01/28/22 07/27/24 History control ondansetron HCl 4 mg tablet 4 mg PO TID PRN Nausea 03/29/24 07/27/24 History albuterol sulfate 90 mcg/actuation 2 puff inhalation Q6H PRN 05/24/24 07/27/24 Rx aerosol inhaler (Ventolin HFA) shortness of breath or wheezing #6.7 grams metformin 500 mg tablet,extended 1,000 mg (2 x 500 mg) PO DAILY 06/17/24 07/27/24 Rx release 24 hr Diabetes #180 tabs clotrimazole 10 mg alisha 10 mg mucous membrane 5XDAY Thrush 07/27/24 Rx 10 days #50 tabs fluticasone fur. 100 mcg-umeclid 1 inh inhalation DAILY 07/27/24 07/27/24 History 62.5 mcg-vilant 25 mcg inhalat.powder (Trelegy Ellipta) ipratropium 0.5 mg-albuterol 3 mg 3 ml inhalation Q20M PRN shortness 07/27/24 Rx (2.5 mg base)/3 mL nebulization of breath or wheezing #90 mL soln levothyroxine 50 mcg tablet 50 mcg PO DAILY 07/27/24 07/27/24 History lisinopril 2.5 mg tablet 2.5 mg PO DAILY 07/27/24 07/27/24 History semaglutide 7 mg tablet (Rybelsus) 7 mg PO DAILY 07/27/24 07/27/24 History sertraline 100 mg tablet 100 mg PO DAILY 07/27/24 07/27/24 History New Prescriptions to Start Prescriptions: clotrimazole Hesham Ovalle ipratropium-albuterol Hesham Ovalle Allergies Allergy/AdvReac Type Severity Reaction Status Date / Time Androgenic Anabolic Steroid Allergy Mild Verified 07/10/24 11:59 Exam Data for Last 24 hours Vital signs and Labs for Last 24 Hours: Temp Pulse Resp BP Pulse Ox O2 Del Method O2 Flow Rate 97.9 F 106 H 23 105/56 L 90 L Nasal Cannula 6 07/27/24 08:25 07/27/24 14:15 07/27/24 08:25 07/27/24 14:15 07/27/24 14:15 07/27/24 12:06 07/27/24 12:06 Laboratory Results - last 24 hr 07/27/24 08:25: WBC 11.0 H, RBC 5.31, Hgb 15.2, Hct 45.7, MCV 86.1, MCH 28.6, MCHC 33.3, RDW 15.0, Plt Count 358, MPV 10.7 H, Neut % (Auto) 72.4, Lymph % (Auto) 15.8, [place] % (Auto) 9.3, Eos % (Auto) 1.7, Baso % (Auto) 0.5, Neut # (Auto) 8.0 H, Lymph # (Auto) 1.7, [place] # (Auto) 1.0, Eos # (Auto) 0.2, Baso # (Auto) 0.1, D-Dimer 0.92 H, Sodium 135 L, Potassium 4.4, Chloride 105, Carbon Dioxide 25, Anion Gap 9.4, BUN 10, Creatinine 0.60, Estimated Creat Clear 221, Estimated GFR 112, Est GFR ( Amer) 136, Glucose 114 H, Calcium 9.0, Total Bilirubin 0.5, AST 36, ALT 25, Alkaline Phosphatase 111, Total Protein 7.3, Albumin 4.0, Globulin 3.3 H, Albumin/Globulin Ratio 1.2, Serum HCG, Qual Negative, HIV Ag/Ab Combo Qual Negative 07/27/24 09:03: SARS-CoV-2 (PCR) Not detected, Influenza A Untype (PCR) Not detected, Influenza Type B (PCR) Not detected 07/27/24 10:05: VBG pH 7.39, VBG pCO2 34.8 L, VBG pO2 38.5, VBG HCO3 20.4 L, VBG Total CO2 21.5 L, VBG O2 Saturation 78.5 H, VBG Base Excess -4.6 L, VBG Lactic Acid 1.5 I & O for Last 24 hours: Intake & Output 07/24/24 07/25/24 07/26/24 07/27/24 23:59 23:59 23:59 23:59 Weight 108.862 kg Constitutional Constitutional: mild distress, obese and cooperative *Routine HEENT Exam Head: Present normocephalic Eye: Present EOMI and PERRL ENT: Present mucous membranes moist *Routine Neck Exam Neck: Present supple; Absent lymphadenopathy *Routine Respiratory Exam Respiratory: Present accessory muscle use, prolonged expiratory phase, respiratory distress, wheezes and crackles; Absent rhonchi *Routine Cardiovascular Exam Cardiovascular: Present tachycardia Comments: Regular rhythm *Routine Abdominal Exam Abdominal: Present soft and normoactive bowel sounds; Absent tenderness *Routine Rectal Exam Rectal:: deferred *Routine Genitalia Exam Genitalia:: deferred *Routine Extremities Exam Extremities: Absent cyanosis, clubbing or edema *Routine Skin Exam Skin: Present warm; Absent rash *Routine Neurological Exam Neurological: Present alert, oriented X3 and moving all extremities; Absent altered mental status Assessment and Plan *Assessment and plan (1) Acute hypoxemic respiratory failure: Status: Acute Category: Medical Code(s): J96.01 - Acute respiratory failure with hypoxia (2) Pneumonia: Status: Acute Category: Medical Code(s): J18.9 - Pneumonia, unspecified organism (3) Asthmaticus, status: Status: Acute Category: Medical Code(s): J45.902 - Unspecified asthma with status asthmaticus (4) Candidiasis of mouth: Status: Acute Category: Medical Code(s): B37.0 - Candidal stomatitis (5) Obstructive sleep apnea (adult) (pediatric): Status: Acute Category: Medical Code(s): G47.33 - Obstructive sleep apnea (adult) (pediatric) (6) Hypothyroidism: Status: Acute Qualifiers: Hypothyroidism type: unspecified Qualified Code(s): E03.9 - Hypothyroidism, unspecified Category: Medical Code(s): E03.9 - Hypothyroidism, unspecified (7) Tobacco use: Status: Acute Category: Social Hx Code(s): Z72.0 - Tobacco use (8) Hypertension: Status: Acute Qualifiers: Hypertension type: primary hypertension Qualified Code(s): I10 - Essential (primary) hypertension Category: Medical Code(s): I10 - Essential (primary) hypertension (9) Depression: Status: Acute Qualifiers: Depression Type: unspecified Qualified Code(s): F32.A - Depression, unspecified Category: Medical Code(s): F32.A - Depression, unspecified (10) DM type 2 (diabetes mellitus, type 2): Status: Chronic Qualifiers: Diabetes mellitus complication status: without complication Diabetes mellitus boat repairer insulin use: without detention use Qualified Code(s): E11.9 - Type 2 diabetes mellitus without complications Category: Medical Code(s): E11.9 - Type 2 diabetes mellitus without complications (11) Asthma: Status: Acute Category: Medical Code(s): J45.909 - Unspecified asthma, uncomplicated (12) Anxiety: Status: Acute Category: Medical Code(s): F41.9 - Anxiety disorder, unspecified Plan 39-year-old female who presented with worsening shortness of breath over the past 3 days. Found to have significant bronchoconstriction on exam with poor air movement and hypoxia. Chest imaging in the ER showing pneumonia. Discussed case with ER physician, request admission for new oxygen requirement, pneumonia, respiratory failure. I agreed to admit for further management. Problems addressed as follows: Acute hypoxemic respiratory failure Bilateral pneumonia Status asthmaticus -Presented with shortness of breath and was severely tight air movement on exam. High-dose bronchodilators and steroids administered in the ER. Improvement in air movement with improvement in wheeze. Continue DuoNebs every 4 hours scheduled with albuterol nebs every 4 hours as needed. -Resume Trelegy 100 inhaler -Continue ceftriaxone 1 g daily, initiate azithromycin 500 mg daily. Transition to dexamethasone 6 mg daily -Per my review of chest CT, bilateral multifocal airspace disease consistent with pneumonia -Sputum and blood cultures pending -Supplemental oxygen as needed for goal sats greater 90%. Currently on 6 L - White count elevated at 11, kidney function and electrolytes normal with BUN 10, creatinine 0.6. -Flu and COVID-negative -Repeat CBC, CMP, magnesium ordered for the morning. -Gets thrush from her inhalers, has never been told to brush her teeth or rinse her mouth before. Will monitor given initiation of steroids and antibiotics. Low threshold for nystatin swish and swallow Diabetes:A1c 5.4 last month -Continue metformin 1000 mg twice daily. Sliding scale insulin and fingersticks ACHS. Continue Zoloft 100 mg daily for mood Continue 50 mcg levothyroxine daily for hypothyroid, TSH 0.77 earlier this year, well-controlled per chart review Obesity complicates all aspects of her care Tobacco use disorder: Nicotine patch daily as needed. Full code Lovenox 40 mg subcu daily Diabetic diet
--- NOTE | 2024-07-27 14:48 | PC.NURSE ---
[facility] NOTIFIED OF ADMISSION
[2024-07-27] MEDS: CEFTRIAXONE 1 GM 1 GM in 0.9 % SODIUM CHLORIDE 50 ML IV (14:55)
[2024-07-27] MEDS: NYSTATIN SUSP 500,000 UNITS/5ML UDC 500000 UNIT PO (14:55)
--- NOTE | 2024-07-27 15:27 | PC.NURSE ---
Gave report to America MILLER on Med/Surg, still awaiting on bed to be clean for room 217. Pt aware of expected wait time.
--- NOTE | 2024-07-27 16:46 | PC.NURSE ---
arrived by w/c from ED
[2024-07-27] MEDS: humaLOG 100 UNITS/ML 10ML VIAL (SSI) SUBCUT ×2 (17:05→20:59)
[2024-07-27] MEDS: DEXAMETHASONE 4MG/ML 1ML VIAL 6 MG IV (17:06)
[2024-07-27 17:07] LABS: POC Glucose,Bedside 224 (70-110)
[2024-07-27] MEDS: AZITHROMYCIN 500 MG in 0.9 % SODIUM CHLORIDE 250 ML 250 MG IV (18:23)
[2024-07-27] MEDS: ENOXAPARIN 40MG/0.4ML SYRINGE 40 MG SUBCUT (18:24)
[2024-07-27] MEDS: ONDANSETRON 4MG/2ML VIAL 4 MG IV (18:52)
[2024-07-27] MEDS: IPRATROPIUM/ALBUTEROL 3 ML NEB IH (19:10)
[2024-07-27 21:07] LABS: POC Glucose,Bedside 289 (70-110)
--- NOTE | 2024-07-27 21:50 | EXP.EVENT.NO ---
Patient is doing fairly well but significant wheeze when listened to. She is able to talk in full sentences. Is receiving DuoNeb every 4 hours. Had received IV steroids earlier today exam significant loud wheeze bilateral chest at end inspiration. plan:. Talked with the respiratory therapist were going to try Xopenex 1 time instead of her DuoNeb which is due right now to see if this makes a difference in her wheezing. Also will add Solu-Medrol 40 mg 1 dose twice daily IV daily. Also will try a nondrowsy antihistamine such as Claritin or Ceci. 22:56 respiratory gave Xopenex treatment felt it worked better after reevaluation than the DuoNeb so we will change DuoNeb as needed and Xopenex to regular [id number].
[2024-07-27] MEDS: LEVALBUTEROL 1.25MG/3ML NEB 1.25 MG IH (22:35)
[2024-07-27] MEDS: METHYLPREDNISOLONE SOD SUCC 40MG VIAL 40 MG IV (22:51)
[2024-07-28] VITALS (22 sets, daily range): BP systolic 101–113; BP diastolic 47–68; PULSE 75–95; RESP 15–23; TEMP 36.6–37.2; O2SAT 88–95; BMI 39.4
[2024-07-28] MEDS: LEVALBUTEROL 1.25MG/3ML NEB 1.25 MG IH ×6 (02:24→22:18)
[2024-07-28] MEDS: humaLOG 100 UNITS/ML 10ML VIAL (SSI) SUBCUT ×3 (05:59→20:47)
[2024-07-28 06:02] LABS: POC Glucose,Bedside 194 (70-110)
[2024-07-28 06:55] LABS: Monocytes # 0.9 K/mm3 (0.1-1.0)
[2024-07-28 06:59] LABS: Basophils % 0.1 % (0.1-2.0); Hemoglobin 13.4 g/dL (12.2-16.2); Lymphocytes # 1.1 K/mm3 (0.7-4.5); Lymphocytes % 4.6 % (10-50); Mean Corpuscular HGB Conc 33.5 g/dL (31.8-35.4); Mean Corpuscular Hemoglobin 28.9 pg (27.0-31.2); Mean Corpuscular Volume 86.2 fl (81-99); Mean Platelet Volume 10.1 fl (7.4-10.4); Monocytes % 3.7 % (1.7-9.3); Neutrophils # 20.9 K/mm3 (1.8-7.8); Neutrophils % 90.9 % (37.0-80.0); Platelet Count 309 K/mm3 (142-424); Red Blood Count 4.64 M/mm3 (4.20-5.40); Red Cell Distribution Width 15.1 % (11.5-17.5)
[2024-07-28 07:01] LABS: MANUAL DIFFERENTIAL MANUAL DIFFERENTIAL (MANUAL DIFF)
[2024-07-28 07:04] LABS: Albumin Level 3.6 g/dl (3.5-5.0); Chloride 106 mmol/L (98-107); Sodium 133 mmol/L (136-145)
[2024-07-28 07:05] LABS: Potassium 4.3 mmoL/L (3.5-5.1)
[2024-07-28 07:07] LABS: Alanine Aminotransferase 24 U/L (12-78); Albumin/Globulin Ratio 1.3 (1.1-1.8); Alkaline Phosphatase 94 U/L (38-126); Anion Gap 8.3 mEq/L (5-15); Aspartate Amino Transferase 27 U/L (14-36); Bilirubin,Total 0.3 mg/dl (0.2-1.3); Blood Urea Nitrogen 12 mg/dl (7-17); Carbon Dioxide 23 mmol/L (22.0-30.0); Creatinine Clearance Estimated 261 mL/min (50-200); Estimated Glomerular Filt Rate 139 ml/min (>60); GFR (African American) 168 ML/MIN (>60); Globulin 2.8 g/dL (1.3-3.2); Total Protein,Serum 6.4 g/dl (6.3-8.2)
[2024-07-28 07:08] LABS: Calcium 8.6 mg/dl (8.4-10.2); Glucose 205 mg/dl (74-100); Magnesium 2.2 mg/dl (1.6-2.3)
[2024-07-28 07:12] LABS: Lymphocytes % 4 % (10-50); Monocytes % 2 % (2-9); Neutrophils % 94 % (42-76); Total Cells Counted 100
[2024-07-28 07:13] LABS: Platelet Estimate Normal; RBC Morphology Normal
[2024-07-28] MEDS: FLUTICASONE/UMECLIDIN/VILANTER 100/62.5/25MCG INHALER 1 PUFF IH (08:32)
[2024-07-28 09:08] LABS: HCV Ab Non Reactive (Non Reactive)
[2024-07-28] MEDS: ACETAMINOPHEN 325MG TAB 650 MG PO (09:34)
[2024-07-28] MEDS: LORATADINE 10MG TABLET 10 MG PO (09:34)
--- NOTE | 2024-07-28 09:39 | EXP.ACUTE.PN ---
Subjective *Date: 07/28/24 *Time: 14:12 Interval history: On 6 L she satting 90 to 92% at rest. If since she ambulates she drops into the low 80s. Still quite wheezy but appears more comfortable. Denies any nausea or vomiting. No chest pain. No confusion. Afebrile overnight. Medical Exam Vital signs and Labs for Last 24 Hours: Vital Signs Temp Pulse Pulse Resp BP BP Pulse Ox 07/28/24 08:28 80 07/28/24 08:28 83 07/28/24 08:28 88 L 07/28/24 06:55 07/28/24 06:00 80 21 113/66 94 L 07/28/24 05:00 07/28/24 04:00 97.9 F 07/28/24 04:00 94 L 07/28/24 04:00 83 20 110/66 92 L 07/28/24 04:00 80 07/28/24 03:00 07/28/24 02:29 77 07/28/24 02:29 79 07/28/24 02:29 07/28/24 02:00 85 16 111/64 95 07/28/24 01:00 07/28/24 00:21 92 L 07/28/24 00:20 07/28/24 00:00 95 H 21 101/59 L 89 L 07/28/24 00:00 98.4 F 07/28/24 00:00 90 07/27/24 23:00 07/27/24 22:45 87 07/27/24 22:45 92 H 07/27/24 22:00 87 21 106/62 L 90 L 07/27/24 20:50 07/27/24 20:00 100 H 07/27/24 20:00 98.0 F 102 H 22 120/65 90 L 07/27/24 20:00 90 L 07/27/24 19:10 107 H 07/27/24 19:10 98 H 07/27/24 19:10 91 L 07/27/24 18:30 07/27/24 18:00 100 H 18 121/66 90 L 07/27/24 17:00 07/27/24 16:46 98.7 F 105 H 16 112/64 90 L 07/27/24 15:33 90 L 07/27/24 15:30 100 H 98/53 L 91 L 07/27/24 15:28 98.6 F 100 H 20 116/55 L 07/27/24 15:00 105 H 116/55 L 93 L 07/27/24 14:30 111 H 111/82 92 L 07/27/24 14:15 106 H 105/56 L 90 L 07/27/24 14:00 106 H 105/56 L 91 L 07/27/24 13:30 108 H 112/60 88 L 07/27/24 13:00 106 H 122/67 89 L 07/27/24 12:06 88 L 07/27/24 12:04 121 H 138/70 89 L 07/27/24 11:30 116 H 125/72 86 L 07/27/24 11:00 105 H 123/70 89 L 07/27/24 10:30 94 H 114/63 85 L 07/27/24 10:00 95 H 128/65 87 L 07/27/24 10:00 92 L 07/27/24 09:59 86 L O2 Del Method O2 Flow Rate FiO2 07/28/24 08:28 07/28/24 08:28 07/28/24 08:28 Nasal Cannula 6 07/28/24 06:55 CPAP 07/28/24 06:00 CPAP 07/28/24 05:00 CPAP 07/28/24 04:00 07/28/24 04:00 CPAP 07/28/24 04:00 CPAP 07/28/24 04:00 07/28/24 03:00 CPAP 07/28/24 02:29 07/28/24 02:29 07/28/24 02:29 60 07/28/24 02:00 CPAP 07/28/24 01:00 CPAP 07/28/24 00:21 CPAP 55 07/28/24 00:20 55 07/28/24 00:00 Nasal Cannula 6 07/28/24 00:00 07/28/24 00:00 07/27/24 23:00 Nasal Cannula 6 07/27/24 22:45 07/27/24 22:45 07/27/24 22:00 Nasal Cannula 6 07/27/24 20:50 Nasal Cannula 07/27/24 20:00 07/27/24 20:00 Nasal Cannula 6 07/27/24 20:00 Nasal Cannula 6 07/27/24 19:10 07/27/24 19:10 07/27/24 19:10 Nasal Cannula 6 07/27/24 18:30 Nasal Cannula 6 07/27/24 18:00 Nasal Cannula 6 07/27/24 17:00 Nasal Cannula 6 07/27/24 16:46 Nasal Cannula 07/27/24 15:33 Nasal Cannula 6 07/27/24 15:30 07/27/24 15:28 Nasal Cannula 6 07/27/24 15:00 Nasal Cannula 6 07/27/24 14:30 07/27/24 14:15 07/27/24 14:00 07/27/24 13:30 07/27/24 13:00 07/27/24 12:06 Nasal Cannula 6 07/27/24 12:04 Nasal Cannula 07/27/24 11:30 Non-Rebreather 07/27/24 11:00 Non-Rebreather 07/27/24 10:30 Non-Rebreather 07/27/24 10:00 Non-Rebreather 07/27/24 10:00 Nasal Cannula 2 07/27/24 09:59 Room Air Intake and Output 07/27/24 07/28/24 07/28/24 23:59 07:59 15:59 Intake Total 249 / 489 240 / 240 Output Total 0 / 0 0 / 0 Balance 249 / 489 240 / 240 0 / 240 Intake: Intake, Oral Amount 240 / 240 Intake, Total IV Amount 249 / 249 Azithromycin 500 mg In 0.9 % 249 / 249 Sodium Chloride 250 ml @ 250 mls/hr IV Q24H [facility] Rx#: [id number] Output: Output, Urine Amount 0 / 0 0 / 0 Other: Number of Unmeasured Voids 1 1 Weight 106.367 kg 107.397 kg Patient Weight 07/28/24 23:59 Weight 107.397 kg Laboratory Results - last 24 hr 07/27/24 08:25: WBC 11.0 H, RBC 5.31, Hgb 15.2, Hct 45.7, MCV 86.1, MCH 28.6, MCHC 33.3, RDW 15.0, Plt Count 358, MPV 10.7 H, Neut % (Auto) 72.4, Lymph % (Auto) 15.8, [place] % (Auto) 9.3, Eos % (Auto) 1.7, Baso % (Auto) 0.5, Neut # (Auto) 8.0 H, Lymph # (Auto) 1.7, [place] # (Auto) 1.0, Eos # (Auto) 0.2, Baso # (Auto) 0.1, D-Dimer 0.92 H, Sodium 135 L, Potassium 4.4, Chloride 105, Carbon Dioxide 25, Anion Gap 9.4, BUN 10, Creatinine 0.60, Estimated Creat Clear 221, Estimated GFR 112, Est GFR ( Amer) 136, Glucose 114 H, Calcium 9.0, Total Bilirubin 0.5, AST 36, ALT 25, Alkaline Phosphatase 111, Total Protein 7.3, Albumin 4.0, Globulin 3.3 H, Albumin/Globulin Ratio 1.2, Hepatitis C Antibody Non reactive, HIV Ag/Ab Combo Qual Negative 07/27/24 09:03: SARS-CoV-2 (PCR) Not detected, Influenza A Untype (PCR) Not detected, Influenza Type B (PCR) Not detected 07/27/24 10:05: VBG pH 7.39, VBG pCO2 34.8 L, VBG pO2 38.5, VBG HCO3 20.4 L, VBG Total CO2 21.5 L, VBG O2 Saturation 78.5 H, VBG Base Excess -4.6 L, VBG Lactic Acid 1.5 07/27/24 16:59: POC Glucose 224 H 07/27/24 20:54: POC Glucose 289 H 07/28/24 05:40: POC Glucose 194 H 07/28/24 06:35: WBC 23.0 H* D, RBC 4.64, Hgb 13.4 D, Hct 40.0, MCV 86.2, MCH 28.9, MCHC 33.5, RDW 15.1, Plt Count 309, MPV 10.1, Neut % (Auto) 90.9 H, Lymph % (Auto) 4.6 L, [place] % (Auto) 3.7, Eos % (Auto) 0.0 L, Baso % (Auto) 0.1, Neut # (Auto) 20.9 H, Lymph # (Auto) 1.1, [place] # (Auto) 0.9, Eos # (Auto) 0.0, Baso # (Auto) 0.0, Total Counted 100, Neutrophils % (Manual) 94 H, Lymphocytes % (Manual) 4 L, Monocytes % (Manual) 2, Platelet Estimate Normal, RBC Morphology Normal, Sodium 133 L, Potassium 4.3, Chloride 106, Carbon Dioxide 23, Anion Gap 8.3, BUN 12, Creatinine 0.50 L, Estimated Creat Clear 261, Estimated GFR 139, Est GFR ( Amer) 168 D, Glucose 205 H D, Calcium 8.6, Magnesium 2.2, Total Bilirubin 0.3, AST 27, ALT 24, Alkaline Phosphatase 94, Total Protein 6.4, Albumin 3.6, Globulin 2.8, Albumin/Globulin Ratio 1.3 I & O for Labs for Last 24 Hours: Intake & Output 07/25/24 07/26/24 07/27/24 07/28/24 23:59 23:59 23:59 23:59 Intake Total 249 / 489 240 / 240 Output Total 0 / 0 0 / 0 Balance 249 / 489 240 / 240 Weight 106.367 kg 107.397 kg Constitutional: Present mild distress, obese and cooperative Head: Present atraumatic and normocephalic ENT: Present normal exam Neck: Present normal inspection Respiratory: Present accessory muscle use, prolonged expiratory phase and wheezes; Absent rhonchi, crackles or normal respiratory effort Cardiac: Present Reg Rate and Rhythm GI: Present soft and normal bowel sounds; Absent distention or tenderness Extremities: Present normal inspection and full ROM Skin: Present intact; Absent erythema Neuro: Present Grossly Intact, alert, awake, oriented x 3 and moves all extremities Assessment and Plan *Assessment and plan (1) Acute hypoxemic respiratory failure: Status: Acute Category: Medical Code(s): J96.01 - Acute respiratory failure with hypoxia (2) Pneumonia: Status: Acute Category: Medical Code(s): J18.9 - Pneumonia, unspecified organism (3) Asthmaticus, status: Status: Acute Category: Medical Code(s): J45.902 - Unspecified asthma with status asthmaticus (4) Candidiasis of mouth: Status: Acute Category: Medical Code(s): B37.0 - Candidal stomatitis (5) Obstructive sleep apnea (adult) (pediatric): Status: Acute Category: Medical Code(s): G47.33 - Obstructive sleep apnea (adult) (pediatric) (6) Hypothyroidism: Status: Acute Qualifiers: Hypothyroidism type: unspecified Qualified Code(s): E03.9 - Hypothyroidism, unspecified Category: Medical Code(s): E03.9 - Hypothyroidism, unspecified (7) Tobacco use: Status: Acute Category: Social Hx Code(s): Z72.0 - Tobacco use (8) Hypertension: Status: Acute Qualifiers: Hypertension type: primary hypertension Qualified Code(s): I10 - Essential (primary) hypertension Category: Medical Code(s): I10 - Essential (primary) hypertension (9) Depression: Status: Acute Qualifiers: Depression Type: unspecified Qualified Code(s): F32.A - Depression, unspecified Category: Medical Code(s): F32.A - Depression, unspecified (10) DM type 2 (diabetes mellitus, type 2): Status: Chronic Qualifiers: Diabetes mellitus complication status: without complication 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 Found to have significant bronchoconstriction on exam with poor air movement and hypoxia. Chest imaging in the ER showing pneumonia. Discussed case with ER physician, request admission for new oxygen requirement, pneumonia, respiratory failure. I agreed to admit for further management. Continues to have significant oxygen requirement. Slow to respond to steroids and breathing treatments. Still significantly wheezy. Continuing to require inpatient management. Problems addressed as follows: Acute hypoxemic respiratory failure Bilateral pneumonia Status asthmaticus (asthma with severe exacerbation) -Presented with shortness of breath and was severely tight air movement on exam. High-dose bronchodilators and steroids administered in the ER. Improvement in air movement with improvement in wheeze -Transitioned to Xopenex every 4 hours with albuterol as needed -Will transition to high flow nasal cannula today and attempt to improve oxygenation. Goal sats greater 90%. -Initiate Pulmicort twice daily. -Resume Trelegy 100 inhaler -Continue ceftriaxone 1 g daily, initiate azithromycin 500 mg daily and dexamethasone 6 mg daily -Sputum and blood cultures pending -White count increased today to 23, hemoglobin 13. Suspect secondary to steroid effect however patient remains in mild respiratory distress. Kidney function electrolytes okay with BUN 12, creatinine 0.5. Repeat CBC, CMP, magnesium ordered for the morning. -Gets thrush from her inhalers, has never been told to brush her teeth or rinse her mouth before. Will monitor given initiation of steroids and antibiotics. Low threshold for nystatin swish and swallow -Case discussed with respiratory therapist, concerned that patient is still having significant bronchoconstriction. They do feel she responds better to lev albuterol. Discontinue DuoNebs. Diabetes:A1c 5.4 last month -Continue metformin 1000 mg twice daily. Sliding scale insulin and fingersticks ACHS. Continue Zoloft 100 mg daily for mood Continue 50 mcg levothyroxine daily for hypothyroid, TSH 0.77 earlier this year, well-controlled per chart review Obesity complicates all aspects of her care Tobacco use disorder: Nicotine patch daily as needed. Full code Lovenox 40 mg subcu daily Diabetic diet
[2024-07-28 11:55] LABS: POC Glucose,Bedside 166 (70-110)
[2024-07-28] MEDS: CEFTRIAXONE SODIUM 1 GM in 0.9 % SODIUM CHLORIDE 50 ML IV (14:36)
--- NOTE | 2024-07-28 14:51 | PC.NURSE ---
Sputum collected and sent to lab.
[2024-07-28] MEDS: AZITHROMYCIN 500 MG in 0.9 % SODIUM CHLORIDE 250 ML 250 MG IV (16:23)
--- NOTE | 2024-07-28 16:29 | PC.NURSE ---
Pt is A&O x4. She is tolerating vapotherm. Current settings: 30L 45%. Has ambulated to BR on NC and tolerated well. No BM this shift. Appetite has been good. Pt has c/o a headache this shift. Medicated with tylenol. VSS. Pt educated this shift on medication administration. Pt was instructed not to self administer her own home meds while in the hospital. Pt stated she understood. MD Dietz made aware. Call light within reach.
[2024-07-28] MEDS: ONDANSETRON 4MG/2ML VIAL 4 MG IV (16:37)
[2024-07-28] MEDS: ENOXAPARIN 40MG/0.4ML SYRINGE 40 MG SUBCUT (17:44)
[2024-07-28] MEDS: DEXAMETHASONE 4MG/ML 1ML VIAL 6 MG IV (17:45)
[2024-07-28] MEDS: BUDESONIDE 0.5MG/2ML NEB 0.5 MG IH (18:18)
[2024-07-28 20:16] LABS: POC Glucose,Bedside 223 (70-110)
[2024-07-29] VITALS (19 sets, daily range): BP systolic 104–150; BP diastolic 54–85; PULSE 64–89; RESP 14–22; TEMP 36.7–37; O2SAT 90–96; BMI 38.5
[2024-07-29 00:34] LABS: POC Glucose,Bedside 86 (70-110)
[2024-07-29] MEDS: LEVALBUTEROL 1.25MG/3ML NEB 1.25 MG IH ×6 (01:56→21:58)
[2024-07-29] MEDS: BUDESONIDE 0.5MG/2ML NEB 0.5 MG IH ×2 (06:15→18:34)
[2024-07-29] MEDS: LEVOTHYROXINE 50MCG (0.05MG) TAB 50 MCG PO (06:46)
[2024-07-29] MEDS: METFORMIN 500MG TABLET 1000 MG PO (06:47)
[2024-07-29 07:11] LABS: Albumin Level 3.4 g/dl (3.5-5.0); Chloride 105 mmol/L (98-107)
[2024-07-29 07:12] LABS: Potassium 4.3 mmoL/L (3.5-5.1); Sodium 138 mmol/L (136-145)
[2024-07-29 07:14] LABS: Alanine Aminotransferase 22 U/L (12-78); Alkaline Phosphatase 90 U/L (38-126); Anion Gap 11.3 mEq/L (5-15); Aspartate Amino Transferase 29 U/L (14-36); Bilirubin,Total 0.3 mg/dl (0.2-1.3); Blood Urea Nitrogen 13 mg/dl (7-17); Carbon Dioxide 26 mmol/L (22.0-30.0); Creatinine Clearance Estimated 213 mL/min (50-200); Estimated Glomerular Filt Rate 112 ml/min (>60); GFR (African American) 136 ML/MIN (>60)
[2024-07-29 07:15] LABS: Albumin/Globulin Ratio 1.2 (1.1-1.8); Calcium 8.5 mg/dl (8.4-10.2); Globulin 2.8 g/dL (1.3-3.2); Glucose 113 mg/dl (74-100); Magnesium 2.2 mg/dl (1.6-2.3); Total Protein,Serum 6.2 g/dl (6.3-8.2)
[2024-07-29 07:19] LABS: Basophils % 0.2 % (0.1-2.0); Hematocrit 39.2 % (37.0-47.0); Hemoglobin 13.1 g/dL (12.2-16.2); Lymphocytes # 2.1 K/mm3 (0.7-4.5); Lymphocytes % 11.3 % (10-50); Mean Corpuscular HGB Conc 33.4 g/dL (31.8-35.4); Mean Corpuscular Hemoglobin 29.3 pg (27.0-31.2); Mean Corpuscular Volume 87.7 fl (81-99); Mean Platelet Volume 10.3 fl (7.4-10.4); Monocytes # 1.2 K/mm3 (0.1-1.0); Monocytes % 6.6 % (1.7-9.3); Neutrophils # 15.2 K/mm3 (1.8-7.8); Neutrophils % 81.4 % (37.0-80.0); Platelet Count 337 K/mm3 (142-424); Red Blood Count 4.47 M/mm3 (4.20-5.40); Red Cell Distribution Width 15.3 % (11.5-17.5); White Blood Count 18.7 K/mm3 (4.8-10.8)
[2024-07-29 07:33] LABS: MANUAL DIFFERENTIAL MANUAL DIFFERENTIAL (MANUAL DIFF)
[2024-07-29] MEDS: SERTRALINE 100MG TABLET 100 MG PO (08:12)
[2024-07-29] MEDS: LORATADINE 10MG TABLET 10 MG PO (08:12)
[2024-07-29 10:06] LABS: Lymphocytes % 26 % (10-50); Monocytes % 2 % (2-9); Neutrophils % 72 % (42-76); Platelet Estimate Normal; RBC Morphology Normal; Total Cells Counted 100
[2024-07-29 12:12] LABS: POC Glucose,Bedside 104 (70-110)
[2024-07-29] MEDS: ONDANSETRON 4MG/2ML VIAL 4 MG IV (13:52)
[2024-07-29] MEDS: CEFTRIAXONE SODIUM 1 GM in 0.9 % SODIUM CHLORIDE 50 ML IV (13:53)
[2024-07-29] MEDS: AZITHROMYCIN 500 MG in 0.9 % SODIUM CHLORIDE 250 ML 250 MG IV (14:33)
[2024-07-29 15:46] LABS: POC Glucose,Bedside 113 (70-110)
[2024-07-29] MEDS: DEXAMETHASONE 4MG/ML 1ML VIAL 6 MG IV (17:58)
[2024-07-29] MEDS: ENOXAPARIN 40MG/0.4ML SYRINGE 40 MG SUBCUT (17:58)
--- NOTE | 2024-07-29 18:46 | PC.NURSE ---
since taking report on pt, she has done well, vapotherm has been weaned to 15L 35% and tolerating well at this time.
[2024-07-29] MEDS: humaLOG 100 UNITS/ML 10ML VIAL (SSI) SUBCUT (20:28)
--- NOTE | 2024-07-29 22:16 | P.PN_ITS ---
Subjective *Date: 07/29/24 *Time: 12:16 Interval history: Patient feeling somewhat better today. Feels like her lungs have opened up . Tolerating Vapotherm with improved comfort. Afebrile. No nausea or vomiting. Denies chest pain. White count improving. Medical Exam Vital signs and Labs for Last 24 Hours: Vital Signs Temp Pulse Pulse Resp BP Pulse Ox O2 Del Method 07/29/24 22:00 69 15 150/85 H 95 Vapotherm 07/29/24 21:00 Vapotherm 07/29/24 20:00 80 07/29/24 20:00 77 14 105/54 L 91 L Vapotherm 07/29/24 20:00 91 L Vapotherm 07/29/24 19:46 98.2 F 07/29/24 18:45 Vapotherm 07/29/24 18:35 80 07/29/24 18:35 78 07/29/24 18:35 93 L Vapotherm 07/29/24 18:00 76 20 111/59 L 93 L Vapotherm 07/29/24 17:00 Vapotherm 07/29/24 16:00 83 18 108/54 L 93 L Vapotherm 07/29/24 16:00 80 07/29/24 16:00 Vapotherm 07/29/24 16:00 98.6 F 07/29/24 15:00 Vapotherm 07/29/24 14:00 85 20 107/58 L 92 L Vapotherm 07/29/24 13:42 82 07/29/24 13:42 82 07/29/24 13:42 92 L Vapotherm 07/29/24 13:00 Vapotherm 07/29/24 12:00 70 07/29/24 12:00 98.0 F 07/29/24 12:00 80 18 107/60 L 95 Vapotherm 07/29/24 11:20 Vapotherm 07/29/24 10:00 79 22 111/55 L 93 L Vapotherm 07/29/24 09:37 70 07/29/24 09:37 70 07/29/24 09:37 92 L Vapotherm 07/29/24 09:00 Vapotherm 07/29/24 08:10 74 90 L Vapotherm 07/29/24 08:00 80 07/29/24 08:00 98.0 F 07/29/24 08:00 74 18 113/54 L 94 L Vapotherm 07/29/24 07:00 Vapotherm 07/29/24 06:17 73 07/29/24 06:17 64 07/29/24 06:17 91 L Vapotherm 07/29/24 06:00 64 22 113/59 L 96 Vapotherm 07/29/24 05:00 Vapotherm 07/29/24 04:00 70 07/29/24 04:00 Vapotherm 07/29/24 04:00 98.0 F 07/29/24 03:00 Vapotherm 07/29/24 02:00 70 20 104/62 L 94 L Vapotherm 07/29/24 01:57 89 07/29/24 01:57 65 07/29/24 01:00 Vapotherm 07/29/24 00:00 98.5 F 07/29/24 00:00 70 07/28/24 23:00 Vapotherm 07/28/24 22:22 94 L Vapotherm 07/28/24 22:18 79 O2 Flow Rate FiO2 07/29/24 22:00 15 35 07/29/24 21:00 15 07/29/24 20:00 07/29/24 20:00 15 35 07/29/24 20:00 15 35 07/29/24 19:46 07/29/24 18:45 15 07/29/24 18:35 07/29/24 18:35 07/29/24 18:35 15 35 07/29/24 18:00 20 07/29/24 17:00 20 07/29/24 16:00 30 07/29/24 16:00 07/29/24 16:00 20 07/29/24 16:00 07/29/24 15:00 30 07/29/24 14:00 30 40 07/29/24 13:42 07/29/24 13:42 07/29/24 13:42 30 40 07/29/24 13:00 30 07/29/24 12:00 07/29/24 12:00 07/29/24 12:00 30 40 07/29/24 11:20 30 07/29/24 10:00 30 55 07/29/24 09:37 07/29/24 09:37 07/29/24 09:37 30 55 07/29/24 09:00 30 07/29/24 08:10 30 55 07/29/24 08:00 07/29/24 08:00 07/29/24 08:00 30 55 07/29/24 07:00 30 07/29/24 06:17 07/29/24 06:17 07/29/24 06:17 30 55 07/29/24 06:00 30 55 07/29/24 05:00 30 07/29/24 04:00 07/29/24 04:00 30 55 07/29/24 04:00 07/29/24 03:00 30 07/29/24 02:00 30 07/29/24 01:57 07/29/24 01:57 07/29/24 01:00 30 07/29/24 00:00 07/29/24 00:00 07/28/24 23:00 30 07/28/24 22:22 30 55 07/28/24 22:18 Intake and Output 07/29/24 07/29/24 07/29/24 07:59 15:59 23:59 Intake Total 240 / 1370 560 / 1370 570 / 1370 Output Total 0 / 0 0 / 0 0 / 0 Balance 240 / 1370 560 / 1370 570 / 1370 Intake: Intake, Oral Amount 240 / 1070 560 / 1070 270 / 1070 Intake, Total IV Amount 300 / 300 Azithromycin 500 mg In 0.9 % 250 / 250 Sodium Chloride 250 ml @ 250 mls/hr IV Q24H [facility] Rx#:[id number] Ceftriaxone Sodium 1 gm In 0.9 50 / 50 % Sodium Chloride 50 ml @ 100 mls/hr IV Q24H [facility] Rx#:[id number] Output: Output, Urine Amount 0 / 0 0 / 0 0 / 0 Other: Number of Unmeasured Voids 1 1 1 Number of Bowel Movements 1 Weight 105 kg 105 kg Patient Weight 07/29/24 23:59 Weight 105 kg Laboratory Results - last 24 hr 07/28/24 16:22: POC Glucose 86 07/29/24 05:51: WBC 18.7 H, RBC 4.47, Hgb 13.1, Hct 39.2, MCV 87.7, MCH 29.3, MCHC 33.4, RDW 15.3, Plt Count 337, MPV 10.3, Neut % (Auto) 81.4 H, Lymph % (Auto) 11.3, [place] % (Auto) 6.6, Eos % (Auto) 0.0 L, Baso % (Auto) 0.2, Neut # (Auto) 15.2 H, Lymph # (Auto) 2.1, [place] # (Auto) 1.2 H, Eos # (Auto) 0.0, Baso # (Auto) 0.0, Total Counted 100, Neutrophils % (Manual) 72, Lymphocytes % (Manual) 26, Monocytes % (Manual) 2, Platelet Estimate Normal, RBC Morphology Normal, Sodium 138, Potassium 4.3, Chloride 105, Carbon Dioxide 26, Anion Gap 11.3, BUN 13, Creatinine 0.60, Estimated Creat Clear 213, Estimated GFR 112, Est GFR ( Amer) 136, Glucose 113 H D, Calcium 8.5, Magnesium 2.2, Total Bilirubin 0.3, AST 29, ALT 22, Alkaline Phosphatase 90, Total Protein 6.2 L, Albumin 3.4 L , Globulin 2.8, Albumin/Globulin Ratio 1.2 07/29/24 11:25: POC Glucose 104 07/29/24 15:39: POC Glucose 113 H I & O for Labs for Last 24 Hours: Intake & Output 07/26/24 07/27/24 07/28/24 07/29/24 23:59 23:59 23:59 23:59 Intake Total 249 / 489 1739 1370 / 1370 Output Total 0 / 0 0 / 0 0 / 0 Balance 249 / 489 1739 1370 / 1370 Weight 106.367 kg 107.397 kg 105 kg Microbiology Reports for the Last 24 Hours: Microbiology 07/27/24 11:57 Blood Blood Culture - Preliminary NO GROWTH AFTER 48 HOURS 07/27/24 11:41 Blood Blood Culture - Preliminary NO GROWTH AFTER 48 HOURS 07/28/24 14:47 Sputum - Expectorated Sputum Gram Stain - Final 07/28/24 14:47 Sputum - Expectorated Sputum Sputum Culture - Preliminary Constitutional: Present no acute distress, obese and cooperative Head: Present atraumatic and normocephalic ENT: Present normal exam Neck: Present normal inspection Respiratory: Present accessory muscle use, prolonged expiratory phase and wheezes (Significant improvement); Absent rhonchi, crackles or normal respiratory effort Cardiac: Present Reg Rate and Rhythm GI: Present soft and normal bowel sounds; Absent distention or tenderness Extremities: Present normal inspection and full ROM Skin: Present intact; Absent erythema Neuro: Present Grossly Intact, alert, awake, oriented x 3 and moves all extremities Assessment and Plan *Assessment and plan (1) Acute hypoxemic respiratory failure: Status: Acute Category: Medical Code(s): J96.01 - Acute respiratory failure with hypoxia (2) Pneumonia: Status: Acute Category: Medical Code(s): J18.9 - Pneumonia, unspecified organism (3) Asthmaticus, status: Status: Acute Category: Medical Code(s): J45.902 - Unspecified asthma with status asthmaticus (4) Candidiasis of mouth: Status: Acute Category: Medical Code(s): B37.0 - Candidal stomatitis (5) Obstructive sleep apnea (adult) (pediatric): Status: Acute Category: Medical Code(s): G47.33 - Obstructive sleep apnea (adult) (pediatric) (6) Hypothyroidism: Status: Acute Qualifiers: Hypothyroidism type: unspecified Qualified Code(s): E03.9 - Hypothyroidism, unspecified Category: Medical Code(s): E03.9 - Hypothyroidism, unspecified (7) Tobacco use: Status: Acute Category: Social Hx Code(s): Z72.0 - Tobacco use (8) Hypertension: Status: Acute Qualifiers: Hypertension type: primary hypertension Qualified Code(s): I10 - Essential (primary) hypertension Category: Medical Code(s): I10 - Essential (primary) hypertension (9) Depression: Status: Acute Qualifiers: Depression Type: unspecified Qualified Code(s): F32.A - Depression, unspecified Category: Medical Code(s): F32.A - Depression, unspecified (10) DM type 2 (diabetes mellitus, type 2): Status: Chronic Qualifiers: Diabetes mellitus complication status: without complication Diabetes mellitus care home insulin use: without long term acute care registered nurse use Qualified Code(s): E11.9 - Type 2 diabetes mellitus without complications Category: Medical Code(s): E11.9 - Type 2 diabetes mellitus without complications (11) Asthma: Status: Acute Category: Medical Code(s): J45.909 - Unspecified asthma, uncomplicated (12) Anxiety: Status: Acute Category: Medical Code(s): F41.9 - Anxiety disorder, unspecified Plan 39-year-old female who presented with worsening shortness of breath over the past 3 days. Found to have significant bronchoconstriction on exam with poor air movement and hypoxia. Chest imaging in the ER showing pneumonia. Discussed case with ER physician, request admission for new oxygen requirement, pneumonia, respiratory failure. I agreed to admit for further management. Showing slow response to steroids and nebulizers. Transitioned to Vapotherm yesterday, having good benefit. Weaning today. Continues to require inpatient management. Anticipate discharge in the next day or 2 if continues to progress well. Problems addressed as follows: Acute hypoxemic respiratory failure Bilateral pneumonia Status asthmaticus (asthma with severe exacerbation) -Presented with shortness of breath and was severely tight air movement on exam. High-dose bronchodilators and steroids administered in the ER. Improvement in air movement with improvement in wheeze -Continue Xopenex every 4 hours with albuterol as needed; continue Pulmicort twice daily -Tolerating high flow nasal cannula, weaned to 15 L and 35%. Showing improvement in oxygenation, goal sats greater 90%. - Trelegy 100 inhaler -Continue ceftriaxone 1 g daily, initiate azithromycin 500 mg daily and dexamethasone 6 mg daily -Sputum and blood cultures pending -White count improved to 18, hemoglobin 13. Repeat CBC, CMP, magnesium ordered for the morning. - Gets thrush from her inhalers, has never been told to brush her teeth or rinse her mouth before. Will monitor given initiation of steroids and antibiotics. Low threshold for nystatin swish and swallow Diabetes:A1c 5.4 last month; Continue metformin 1000 mg twice daily. Sliding scale insulin and fingersticks ACHS. Continue Zoloft 100 mg daily for mood Continue 50 mcg levothyroxine daily for hypothyroid, TSH 0.77 earlier this year, well-controlled per chart review Obesity complicates all aspects of her care Tobacco use disorder: Nicotine patch daily as needed. Full code Lovenox 40 mg subcu daily Diabetic diet
[2024-07-30] VITALS (17 sets, daily range): BP systolic 105–150; BP diastolic 55–85; PULSE 7–88; RESP 14–21; TEMP 36.5–36.7; O2SAT 90–97; BMI 38.3
[2024-07-30] MEDS: LEVALBUTEROL 1.25MG/3ML NEB 1.25 MG IH ×6 (02:13→21:36)
[2024-07-30 02:33] LABS: POC Glucose,Bedside 134 (70-110)
[2024-07-30 04:19] LABS: POC Glucose,Bedside 156 (70-110)
[2024-07-30] MEDS: humaLOG 100 UNITS/ML 10ML VIAL (SSI) SUBCUT ×2 (05:44→20:09)
[2024-07-30] MEDS: METFORMIN 500MG TABLET 1000 MG PO (06:05)
[2024-07-30] MEDS: LEVOTHYROXINE 50MCG (0.05MG) TAB 50 MCG PO (06:05)
[2024-07-30] MEDS: BUDESONIDE 0.5MG/2ML NEB 0.5 MG IH ×2 (06:11→18:21)
[2024-07-30 06:46] LABS: POC Glucose,Bedside 161 (70-110)
[2024-07-30 06:56] LABS: Basophils % 0.2 % (0.1-2.0); Eosinophils % 0.1 % (0.1-12.0); Hematocrit 39.2 % (37.0-47.0); Lymphocytes # 2.3 K/mm3 (0.7-4.5); Lymphocytes % 18.4 % (10-50); Mean Corpuscular HGB Conc 33.2 g/dL (31.8-35.4); Mean Corpuscular Hemoglobin 28.6 pg (27.0-31.2); Mean Corpuscular Volume 86.3 fl (81-99); Monocytes # 0.9 K/mm3 (0.1-1.0); Monocytes % 6.8 % (1.7-9.3); Neutrophils # 9.3 K/mm3 (1.8-7.8); Neutrophils % 73.9 % (37.0-80.0); Platelet Count 302 K/mm3 (142-424); Red Blood Count 4.54 M/mm3 (4.20-5.40); Red Cell Distribution Width 14.8 % (11.5-17.5); White Blood Count 12.5 K/mm3 (4.8-10.8)
[2024-07-30 07:14] LABS: Albumin Level 3.4 g/dl (3.5-5.0); Chloride 103 mmol/L (98-107); Potassium 3.8 mmoL/L (3.5-5.1); Sodium 134 mmol/L (136-145)
[2024-07-30 07:16] LABS: Blood Urea Nitrogen 12 mg/dl (7-17); Creatinine Clearance Estimated 254 mL/min (50-200); Estimated Glomerular Filt Rate 139 ml/min (>60); GFR (African American) 168 ML/MIN (>60)
[2024-07-30 07:17] LABS: Alanine Aminotransferase 23 U/L (12-78); Albumin/Globulin Ratio 1.2 (1.1-1.8); Alkaline Phosphatase 92 U/L (38-126); Anion Gap 6.8 mEq/L (5-15); Aspartate Amino Transferase 26 U/L (14-36); Bilirubin,Total 0.3 mg/dl (0.2-1.3); Calcium 8.8 mg/dl (8.4-10.2); Carbon Dioxide 28 mmol/L (22.0-30.0); Globulin 2.9 g/dL (1.3-3.2); Glucose 133 mg/dl (74-100); Total Protein,Serum 6.3 g/dl (6.3-8.2)
[2024-07-30] MEDS: SERTRALINE 100MG TABLET 100 MG PO (08:55)
[2024-07-30] MEDS: LORATADINE 10MG TABLET 10 MG PO (08:55)
--- NOTE | 2024-07-30 10:22 | EXP.ACUTE.PN ---
Subjective *Date: 07/30/24 *Time: 18:31 Interval history: Patient feeling better today. Weaned from Vapotherm to nasal cannula after morning rounds. Tolerating p.o. intake. Slow to improve. Afebrile. Cough having less productivity. Afebrile. Medical Exam Vital signs and Labs for Last 24 Hours: Vital Signs Temp Pulse Pulse Pulse Resp BP Pulse Ox 07/30/24 09:03 93 L 07/30/24 08:41 07/30/24 08:00 70 07/30/24 08:00 97.8 F 07/30/24 08:00 68 14 150/85 H 92 L 07/30/24 06:36 07/30/24 06:13 55 L 07/30/24 06:13 57 L 07/30/24 06:13 97 07/30/24 06:00 60 15 105/72 L 97 07/30/24 05:00 07/30/24 04:00 97.7 F 07/30/24 04:00 60 07/30/24 04:00 93 L 07/30/24 04:00 60 21 107/65 L 90 L 07/30/24 03:00 07/30/24 02:15 79 07/30/24 02:15 77 07/30/24 02:00 58 L 16 110/68 92 L 07/30/24 01:00 07/30/24 00:00 80 07/30/24 00:00 62 18 117/69 91 L 07/30/24 00:00 97.8 F 07/29/24 23:00 07/29/24 22:00 69 15 150/85 H 95 07/29/24 22:00 76 07/29/24 22:00 74 07/29/24 21:00 07/29/24 20:00 80 07/29/24 20:00 77 14 105/54 L 91 L 07/29/24 20:00 91 L 07/29/24 19:46 98.2 F 07/29/24 18:45 07/29/24 18:35 80 07/29/24 18:35 78 07/29/24 18:35 93 L 07/29/24 18:00 76 20 111/59 L 93 L 07/29/24 17:00 07/29/24 16:00 83 18 108/54 L 93 L 07/29/24 16:00 80 07/29/24 16:00 07/29/24 16:00 98.6 F 07/29/24 15:00 07/29/24 14:00 85 20 107/58 L 92 L 07/29/24 13:42 82 07/29/24 13:42 82 07/29/24 13:42 92 L 07/29/24 13:00 07/29/24 12:00 70 07/29/24 12:00 98.0 F 07/29/24 12:00 80 18 107/60 L 95 07/29/24 11:20 O2 Del Method O2 Flow Rate FiO2 07/30/24 09:03 Vapotherm 20 45 07/30/24 08:41 Vapotherm 20 07/30/24 08:00 07/30/24 08:00 07/30/24 08:00 Vapotherm 20 45 07/30/24 06:36 Vapotherm 20 07/30/24 06:13 07/30/24 06:13 07/30/24 06:13 Vapotherm 20 45 07/30/24 06:00 Vapotherm 20 45 07/30/24 05:00 Vapotherm 07/30/24 04:00 07/30/24 04:00 07/30/24 04:00 Vapotherm 20 45 07/30/24 04:00 Vapotherm 20 45 07/30/24 03:00 Vapotherm 20 07/30/24 02:15 07/30/24 02:15 07/30/24 02:00 Vapotherm 20 45 07/30/24 01:00 Vapotherm 20 07/30/24 00:00 07/30/24 00:00 Vapotherm 20 45 07/30/24 00:00 07/29/24 23:00 Vapotherm 20 07/29/24 22:00 Vapotherm 15 35 07/29/24 22:00 07/29/24 22:00 07/29/24 21:00 Vapotherm 15 07/29/24 20:00 07/29/24 20:00 Vapotherm 15 35 07/29/24 20:00 Vapotherm 15 35 07/29/24 19:46 07/29/24 18:45 Vapotherm 15 07/29/24 18:35 07/29/24 18:35 07/29/24 18:35 Vapotherm 15 35 07/29/24 18:00 Vapotherm 20 07/29/24 17:00 Vapotherm 20 07/29/24 16:00 Vapotherm 30 07/29/24 16:00 07/29/24 16:00 Vapotherm 20 07/29/24 16:00 07/29/24 15:00 Vapotherm 30 07/29/24 14:00 Vapotherm 30 40 07/29/24 13:42 07/29/24 13:42 07/29/24 13:42 Vapotherm 30 40 07/29/24 13:00 Vapotherm 30 07/29/24 12:00 07/29/24 12:00 07/29/24 12:00 Vapotherm 30 40 07/29/24 11:20 Vapotherm 30 Intake and Output 07/29/24 07/30/24 07/30/24 23:59 07:59 15:59 Intake Total 570 / 1610 240 / 720 480 / 720 Output Total 0 / 0 0 / 0 Balance 570 / 1610 240 / 720 480 / 720 Intake: Intake, Oral Amount 270 / 1310 240 / 720 480 / 720 Intake, Total IV Amount 300 / 300 Azithromycin 500 mg In 0.9 % 250 / 250 Sodium Chloride 250 ml @ 250 mls/hr IV Q24H [facility] Rx#:[id number] Ceftriaxone Sodium 1 gm In 0.9 50 / 50 % Sodium Chloride 50 ml @ 100 mls/hr IV Q24H [facility] Rx#:[id number] Output: Output, Urine Amount 0 / 0 0 / 0 Other: Number of Unmeasured Voids 1 1 Weight 104.508 kg Patient Weight 07/30/24 23:59 Weight 104.508 kg Laboratory Results - last 24 hr 07/29/24 05:21: POC Glucose 134 H 07/29/24 11:25: POC Glucose 104 07/29/24 15:39: POC Glucose 113 H 07/29/24 20:04: POC Glucose 156 H 07/30/24 05:34: POC Glucose 161 H 07/30/24 06:13: WBC 12.5 H D, RBC 4.54, Hgb 13.0, Hct 39.2, MCV 86.3, MCH 28.6, MCHC 33.2, RDW 14.8, Plt Count 302, MPV 10.0, Neut % (Auto) 73.9, Lymph % (Auto) 18.4, [place] % (Auto) 6.8, Eos % (Auto) 0.1, Baso % (Auto) 0.2, Neut # (Auto) 9.3 H, Lymph # (Auto) 2.3, [place] # (Auto) 0.9, Eos # (Auto) 0.0, Baso # (Auto) 0.0, Sodium 134 L, Potassium 3.8, Chloride 103, Carbon Dioxide 28, Anion Gap 6.8, BUN 12, Creatinine 0.50 L, Estimated Creat Clear 254, Estimated GFR 139, Est GFR ( Amer) 168 D, Glucose 133 H, Calcium 8.8, Magnesium 2.0, Total Bilirubin 0.3, AST 26, ALT 23, Alkaline Phosphatase 92, Total Protein 6.3, Albumin 3.4 L, Globulin 2.9, Albumin/Globulin Ratio 1.2 I & O for Labs for Last 24 Hours: Intake & Output 07/27/24 07/28/24 07/29/24 07/30/24 23:59 23:59 23:59 23:59 Intake Total 249 / 489 1739 1370 / 1610 720 / 720 Output Total 0 / 0 0 / 0 0 / 0 0 / 0 Balance 249 / 489 1739 1370 / 1610 720 / 720 Weight 106.367 kg 107.397 kg 105 kg 104.508 kg Microbiology Reports for the Last 24 Hours: Microbiology 07/28/24 14:47 Sputum - Expectorated Sputum Gram Stain - Final 07/28/24 14:47 Sputum - Expectorated Sputum Sputum Culture - Preliminary 07/27/24 11:57 Blood Blood Culture - Preliminary NO GROWTH AFTER 48 HOURS 07/27/24 11:41 Blood Blood Culture - Preliminary NO GROWTH AFTER 48 HOURS Constitutional: Present no acute distress, obese and cooperative Head: Present atraumatic and normocephalic ENT: Present normal exam Neck: Present normal inspection Respiratory: Present prolonged expiratory phase and wheezes (End expiratory.); Absent accessory muscle use, rhonchi, crackles or normal respiratory effort Cardiac: Present Reg Rate and Rhythm GI: Present soft and normal bowel sounds; Absent distention or tenderness Extremities: Present normal inspection and full ROM Skin: Present intact; Absent erythema Neuro: Present Grossly Intact, alert, awake, oriented x 3 and moves all extremities Assessment and Plan *Assessment and plan (1) Acute hypoxemic respiratory failure: Status: Acute Category: Medical Code(s): J96.01 - Acute respiratory failure with hypoxia (2) Pneumonia: Status: Acute Category: Medical Code(s): J18.9 - Pneumonia, unspecified organism (3) Asthmaticus, status: Status: Acute Category: Medical Code(s): J45.902 - Unspecified asthma with status asthmaticus (4) Candidiasis of mouth: Status: Acute Category: Medical Code(s): B37.0 - Candidal stomatitis (5) Obstructive sleep apnea (adult) (pediatric): Status: Acute Category: Medical Code(s): G47.33 - Obstructive sleep apnea (adult) (pediatric) (6) Hypothyroidism: Status: Acute Qualifiers: Hypothyroidism type: unspecified Qualified Code(s): E03.9 - Hypothyroidism, unspecified Category: Medical Code(s): E03.9 - Hypothyroidism, unspecified (7) Tobacco use: Status: Acute Category: Social Hx Code(s): Z72.0 - Tobacco use (8) Hypertension: Status: Acute Qualifiers: Hypertension type: primary hypertension Qualified Code(s): I10 - Essential (primary) hypertension Category: Medical Code(s): I10 - Essential (primary) hypertension (9) Depression: Status: Acute Qualifiers: Depression Type: unspecified Qualified Code(s): F32.A - Depression, unspecified Category: Medical Code(s): F32.A - Depression, unspecified (10) DM type 2 (diabetes mellitus, type 2): Status: Chronic Qualifiers: Diabetes mellitus complication status: without complication Diabetes mellitus parts counterman insulin use: without parts counterman use Qualified Code(s): E11.9 - Type 2 diabetes mellitus without complications Category: Medical Code(s): E11.9 - Type 2 diabetes mellitus without complications (11) Asthma: Status: Acute Category: Medical Code(s): J45.909 - Unspecified asthma, uncomplicated (12) Anxiety: Status: Acute Category: Medical Code(s): F41.9 - Anxiety disorder, unspecified Plan 39-year-old female who presented with worsening shortness of breath over the past 3 days. Found to have significant bronchoconstriction on exam with poor air movement and hypoxia. Chest imaging in the ER showing pneumonia. Discussed case with ER physician, request admission for new oxygen requirement, pneumonia, respiratory failure. I agreed to admit for further management. Showing slow response to steroids and nebulizers. Has tolerated Vapotherm well, transition to nasal cannula today. If continues to improve at this rate, anticipate discharge tomorrow. Prognosis good. Problems addressed as follows: Acute hypoxemic respiratory failure Bilateral pneumonia Status asthmaticus (asthma with severe exacerbation) -Presented with shortness of breath and was severely tight air movement on exam. High-dose bronchodilators and steroids administered in the ER. Improvement in air movement with improvement in wheeze -Continue Xopenex every 4 hours with albuterol as needed; continue Pulmicort twice daily -Tolerating high flow nasal cannula, wean to nasal cannula today. Goal sats greater 90%. - Trelegy 100 inhaler -Continue ceftriaxone 1 g daily, initiate azithromycin 500 mg daily and dexamethasone 6 mg daily -Blood cultures remain negative at 48 hours. Sputum culture negative today -White count 12.5, continue to improve. Hemoglobin 13. Platelets 302, repeat CBC, CMP, magnesium ordered for the morning -Kidney function and electrolytes remain normal with BUN 12, creatinine 0.5. -No thrush on exam, monitor daily Diabetes:A1c 5.4 last month; Continue metformin 1000 mg twice daily. Sliding scale insulin and fingersticks ACHS. Morning glucose 133 Continue Zoloft 100 mg daily for mood Continue 50 mcg levothyroxine daily for hypothyroid, TSH 0.77 earlier this year, well-controlled per chart review Obesity complicates all aspects of her care Tobacco use disorder: Nicotine patch daily as needed. Full code Lovenox 40 mg subcu daily Diabetic diet
[2024-07-30 11:45] LABS: POC Glucose,Bedside 124 (70-110)
[2024-07-30] MEDS: CEFTRIAXONE SODIUM 1 GM in 0.9 % SODIUM CHLORIDE 50 ML IV (13:19)
[2024-07-30] MEDS: AZITHROMYCIN 250MG TABLET 500 MG PO (13:19)
[2024-07-30 16:51] LABS: POC Glucose,Bedside 97 (70-110)
[2024-07-30] MEDS: DEXAMETHASONE 4MG/ML 1ML VIAL 6 MG IV (17:44)
[2024-07-30] MEDS: ENOXAPARIN 40MG/0.4ML SYRINGE 40 MG SUBCUT (17:44)
--- NOTE | 2024-07-30 18:44 | PC.NURSE ---
Pt is alert and oriented x4. Wheezes noted throughout. She's been weaned to RA. O2 sats have been 90% or > since. She's been up independently to the bathroom and tolerates well. She denies any complaints at this time.
[2024-07-30 20:09] LABS: POC Glucose,Bedside 216 (70-110)
[2024-07-31] VITALS (7 sets, daily range): BP systolic 110–118; BP diastolic 57–70; PULSE 58–77; RESP 16–18; TEMP 36.5–36.7; O2SAT 93–96; BMI 38.9
[2024-07-31] MEDS: LEVALBUTEROL 1.25MG/3ML NEB 1.25 MG IH ×3 (01:41→09:42)
--- NOTE | 2024-07-31 04:05 | PC.NURSE ---
Patient is alert and oriented x4. Patient was observed to have eyes closed, respirations even and unlabored on 2 L of oxygen via nasal cannula, and no apparent distress throughout the majority of the night. Upon assessment, she stated that she felt like her breathing was much better than it has been. Upon auscultation of her lungs, air movement was very diminished. Oxygen saturations have maintained > 90% this shift. Auscultation of her heart and bowels were within normal findings. She stated that it has been a while since she has had a bowel movement last, but it is normal for [her]. She has been ambulating independently in room/to bathroom and tolerates it well. Scheduled medications were administered as appropriately per SEP. Glucose fingersticks performed. At this time, the patient is resting supine in bed. No acute changes noted thus far. Call light within reach.
[2024-07-31] MEDS: BUDESONIDE 0.5MG/2ML NEB 0.5 MG IH (06:19)
[2024-07-31] MEDS: LEVOTHYROXINE 50MCG (0.05MG) TAB 50 MCG PO (06:36)
[2024-07-31 06:57] LABS: POC Glucose,Bedside 98 (70-110)
[2024-07-31] MEDS: METFORMIN 500MG TABLET 1000 MG PO (06:57)
[2024-07-31 07:28] LABS: Alanine Aminotransferase 27 U/L (12-78); Albumin Level 3.8 g/dl (3.5-5.0); Albumin/Globulin Ratio 1.3 (1.1-1.8); Alkaline Phosphatase 90 U/L (38-126); Aspartate Amino Transferase 27 U/L (14-36); Bilirubin,Total 0.5 mg/dl (0.2-1.3); Blood Urea Nitrogen 10 mg/dl (7-17); Calcium 8.8 mg/dl (8.4-10.2); Carbon Dioxide 31 mmol/L (22.0-30.0); Chloride 103 mmol/L (98-107); Creatinine Clearance Estimated 215 mL/min (50-200); Estimated Glomerular Filt Rate 112 ml/min (>60); GFR (African American) 136 ML/MIN (>60); Glucose 100 mg/dl (74-100); Potassium 3.7 mmoL/L (3.5-5.1); Total Protein,Serum 6.8 g/dl (6.3-8.2)
[2024-07-31] MEDS: LORATADINE 10MG TABLET 10 MG PO (08:00)
[2024-07-31] MEDS: SERTRALINE 100MG TABLET 100 MG PO (08:00)
[2024-07-31] MEDS: AZITHROMYCIN 250MG TABLET 500 MG PO (08:00)
[2024-07-31 08:32] LABS: Basophils % 0.2 % (0.1-2.0); Eosinophils % 0.1 % (0.1-12.0); Hematocrit 41.4 % (37.0-47.0); Hemoglobin 13.4 g/dL (12.2-16.2); Lymphocytes # 2.4 K/mm3 (0.7-4.5); Lymphocytes % 19.3 % (10-50); Mean Corpuscular HGB Conc 32.4 g/dL (31.8-35.4); Mean Corpuscular Hemoglobin 28.2 pg (27.0-31.2); Mean Platelet Volume 10.3 fl (7.4-10.4); Monocytes # 0.8 K/mm3 (0.1-1.0); Monocytes % 6.1 % (1.7-9.3); Neutrophils # 9.1 K/mm3 (1.8-7.8); Neutrophils % 73.9 % (37.0-80.0); Platelet Count 300 K/mm3 (142-424); Red Blood Count 4.76 M/mm3 (4.20-5.40); Red Cell Distribution Width 14.8 % (11.5-17.5); White Blood Count 12.3 K/mm3 (4.8-10.8)
[2024-07-31 08:35] LABS: Anion Gap 7.7 mEq/L (5-15); Sodium 138 mmol/L (136-145)
--- NOTE | 2024-07-31 08:43 | P.PN_ITS ---
Subjective *Date: 07/31/24 *Time: 08:43 Medical Exam Vital signs and Labs for Last 24 Hours: Vital Signs Temp Pulse Pulse Resp BP Pulse Ox O2 Del Method 07/31/24 08:00 Nasal Cannula 07/31/24 07:36 97.8 F 72 17 110/60 96 Nasal Cannula 07/31/24 06:40 Nasal Cannula 07/31/24 06:20 71 07/31/24 06:20 71 07/31/24 06:20 93 L Nasal Cannula 07/31/24 05:00 Nasal Cannula 07/31/24 04:00 97.7 F 72 18 113/63 93 L Nasal Cannula 07/31/24 03:00 Nasal Cannula 07/31/24 01:55 66 07/31/24 01:42 58 L 07/31/24 01:00 Nasal Cannula 07/31/24 00:00 97.9 F 77 16 117/70 94 L Room Air 07/30/24 23:00 Nasal Cannula 07/30/24 22:18 75 07/30/24 22:18 69 07/30/24 22:18 95 Nasal Cannula 07/30/24 21:00 Nasal Cannula 07/30/24 20:00 82 17 90 L Nasal Cannula 07/30/24 20:00 97.9 F 82 17 109/55 L 90 L Room Air 07/30/24 18:31 Room Air 07/30/24 18:24 75 07/30/24 18:24 77 07/30/24 16:40 Nasal Cannula 07/30/24 16:30 Nasal Cannula 07/30/24 16:00 7 L 07/30/24 16:00 88 18 129/77 96 Nasal Cannula 07/30/24 16:00 98.0 F 07/30/24 14:55 Nasal Cannula 07/30/24 14:00 78 16 122/70 95 07/30/24 13:43 73 07/30/24 13:43 76 07/30/24 13:43 96 Nasal Cannula 07/30/24 12:44 Vapotherm 07/30/24 12:00 70 07/30/24 12:00 73 16 112/66 95 Vapotherm 07/30/24 12:00 98.0 F 07/30/24 10:50 Vapotherm 07/30/24 10:31 75 07/30/24 10:31 75 07/30/24 10:31 97 Vapotherm 07/30/24 10:00 70 18 128/72 95 Vapotherm 07/30/24 09:03 93 L Vapotherm O2 Flow Rate FiO2 07/31/24 08:00 07/31/24 07:36 2 07/31/24 06:40 2 07/31/24 06:20 07/31/24 06:20 07/31/24 06:20 2 07/31/24 05:00 2 07/31/24 04:00 2 07/31/24 03:00 2 07/31/24 01:55 07/31/24 01:42 07/31/24 01:00 2 07/31/24 00:00 07/30/24 23:00 2 07/30/24 22:18 07/30/24 22:18 07/30/24 22:18 2 07/30/24 21:00 2 07/30/24 20:00 2 07/30/24 20:00 07/30/24 18:31 07/30/24 18:24 07/30/24 18:24 07/30/24 16:40 07/30/24 16:30 6 07/30/24 16:00 07/30/24 16:00 07/30/24 16:00 07/30/24 14:55 6 07/30/24 14:00 07/30/24 13:43 07/30/24 13:43 07/30/24 13:43 6 07/30/24 12:44 15 07/30/24 12:00 07/30/24 12:00 15 07/30/24 12:00 07/30/24 10:50 07/30/24 10:31 07/30/24 10:31 07/30/24 10:31 15 35 07/30/24 10:00 07/30/24 09:03 20 45 Intake and Output 07/30/24 07/31/24 07/31/24 23:59 07:59 15:59 Intake Total 290 / 1472 222 / 582 360 / 582 Output Total 0 / 0 0 / 0 Balance 290 / 1472 222 / 582 360 / 582 Intake: Intake, Oral Amount 240 / 1422 222 / 582 360 / 582 Intake, Total IV Amount 50 / 50 Ceftriaxone Sodium 1 gm In 0.9 50 / 50 % Sodium Chloride 50 ml @ 100 mls/hr IV Q24H [facility] Rx#:[id number] Output: Output, Urine Amount 0 / 0 0 / 0 Other: Number of Unmeasured Voids 1 1 Weight 106 kg Patient Weight 07/31/24 23:59 Weight 106 kg Laboratory Results - last 24 hr 07/30/24 11:38: POC Glucose 124 H 07/30/24 16:38: POC Glucose 97 07/30/24 19:59: POC Glucose 216 H 07/31/24 06:39: POC Glucose 98 07/31/24 06:40: WBC 12.3 H, RBC 4.76, Hgb 13.4, Hct 41.4, MCV 87.0, MCH 28.2, MCHC 32.4, RDW 14.8, Plt Count 300, MPV 10.3, Neut % (Auto) 73.9, Lymph % (Auto) 19.3, [place] % (Auto) 6.1, Eos % (Auto) 0.1, Baso % (Auto) 0.2, Neut # (Auto) 9.1 H, Lymph # (Auto) 2.4, [place] # (Auto) 0.8, Eos # (Auto) 0.0, Baso # (Auto) 0.0 07/31/24 06:59: Potassium 3.7, Chloride 103, Carbon Dioxide 31 H, BUN 10, Creatinine 0.60, Estimated Creat Clear 215, Estimated GFR 112, Est GFR ( Amer) 136, Glucose 100, Calcium 8.8, Total Bilirubin 0.5, AST 27, ALT 27, Alkaline Phosphatase 90, Total Protein 6.8, Albumin 3.8 D, Globulin 3.0, Albumin/Globulin Ratio 1.3 I & O for Labs for Last 24 Hours: Intake & Output 07/28/24 07/29/24 07/30/24 07/31/24 23:59 23:59 23:59 23:59 Intake Total 1739 1370 / 1610 1250 / 1472 582 / 582 Output Total 0 / 0 0 / 0 0 / 0 0 / 0 Balance 1739 1370 / 1610 1250 / 1472 582 / 582 Weight 107.397 kg 105 kg 104.508 kg 106 kg Microbiology Reports for the Last 24 Hours: Microbiology 07/28/24 14:47 Sputum - Expectorated Sputum Gram Stain - Final 07/28/24 14:47 Sputum - Expectorated Sputum Sputum Culture - Final The patient's infection will respond to the chosen ABx?: Yes (BLOOD CX = NO GROWTH AT 48 HR, SPUTUM NORMAL DORA, AFEBRILE OVER 24 HRS.) Is the patient receiving the right drug, dose, and route?: Yes Could a more targeted ABx be ordered?: No
[2024-07-31 09:25] LABS: Magnesium 1.9 mg/dl (1.6-2.3)
--- NOTE | 2024-07-31 10:46 | PC.NURSE ---
o2 sat at rest on room air is 93%. o2 sat on room air walk test is 91%.
[2024-07-31 11:11] LABS: POC Glucose,Bedside 72 (70-110)
--- NOTE | 2024-07-31 12:03 | EXP.DC.SUM ---
General Admission date:: 07/27/24 HPI HPI HPI: Ms. Castano is a 39-year-old female with history of obesity, diabetes, hypothyroid, asthma, tobacco use disorder. She presents to the ER with worsening shortness of breath over the past 3 to 4 days. Multiple sick exposures with numerous family members coughing and sick for the past 2 to 4 weeks. She reports that she became more short of breath especially with exertion. Progressed to the point that today she could not catch her breath. Has tried to use her inhaler at home with no benefit. Continues to smoke up until 3 days ago. States that normally when she has an asthma attack, steroids and antibiotics x 1 will get her feeling better and get her home. Found to be frankly hypoxic on arrival to the ER. Serial nebulizers improved air movement but patient necessitating 6 L to maintain sats above 90%. Chest imaging obtained showing pneumonia. Medicine consulted for admission and treatment of asthma exacerbation, respiratory failure, pneumonia. On arrival to the floor, patient appears more comfortable. In no acute distress but still necessitating 6 L to sat 90 to 91%. Afebrile. Talking in complete sentences. Alert and oriented x 4. Hospital Course Hospital Course Hospital Course: Laura Castano is a 39-year-old female who presented with worsening shortness of breath over the past 3 days. Found to have significant bronchoconstriction on exam with poor air movement and hypoxia. Chest imaging in the ER showing pneumonia. Discussed case with ER physician, request admission for new oxygen requirement, pneumonia, respiratory failure. I agreed to admit for further management. Acute hypoxemic respiratory failure Bilateral pneumonia Status asthmaticus (asthma with severe exacerbation) ? CTA revealed multifocal pneumonia. Patient was severely exacerbated from an asthma standpoint, severe bronchoconstriction. ? Clinically improved with levalbuterol, ipratropium, Pulmicort breathing treatments, dexamethasone, ceftriaxone and azithromycin. ? Wean from Vapotherm 30 L to room air. Required intermittent CPAP. ? Medically stable for discharge. ? Discharged with new prescription for Trelegy, DuoNebs every 4 hours as needed, cefdinir and prednisone for 1 more day. ? Will follow-up with pulmonology within 2 weeks. Diabetes:A1c 5.4 last month; Continue metformin 1000 mg twice daily. Hypertension ? Held lisinopril due to stable/soft pressures in the hospital. Continue Zoloft 100 mg daily for mood Continue 50 mcg levothyroxine daily for hypothyroid, TSH 0.77 earlier this year, well-controlled per chart review Obesity complicates all aspects of her care Tobacco use disorder: Nicotine patch daily as needed. Total time spent on discharge: 32 minutes on chart review, counseling, documentation, and direct care with patient. Exam Data for Last 24 hours Vital signs and Labs for Last 24 Hours: Temp Pulse Resp BP Pulse Ox O2 Del Method O2 Flow Rate 98.1 F 77 18 118/57 L 96 Room Air 2 07/31/24 11:59 07/31/24 11:59 07/31/24 11:59 07/31/24 11:59 07/31/24 11:59 07/31/24 11:59 07/31/24 09:00 FiO2 35 07/30/24 10:31 Laboratory Results - last 24 hr 07/30/24 16:38: POC Glucose 97 07/30/24 19:59: POC Glucose 216 H 07/31/24 06:39: POC Glucose 98 07/31/24 06:40: WBC 12.3 H, RBC 4.76, Hgb 13.4, Hct 41.4, MCV 87.0, MCH 28.2, MCHC 32.4, RDW 14.8, Plt Count 300, MPV 10.3, Neut % (Auto) 73.9, Lymph % (Auto) 19.3, [place] % (Auto) 6.1, Eos % (Auto) 0.1, Baso % (Auto) 0.2, Neut # (Auto) 9.1 H, Lymph # (Auto) 2.4, [place] # (Auto) 0.8, Eos # (Auto) 0.0, Baso # (Auto) 0.0 07/31/24 06:59: Sodium 138, Potassium 3.7, Chloride 103, Carbon Dioxide 31 H, Anion Gap 7.7, BUN 10, Creatinine 0.60, Estimated Creat Clear 215, Estimated GFR 112, Est GFR ( Amer) 136, Glucose 100, Calcium 8.8, Magnesium 1.9, Total Bilirubin 0.5, AST 27, ALT 27, Alkaline Phosphatase 90, Total Protein 6.8, Albumin 3.8 D, Globulin 3.0, Albumin/Globulin Ratio 1.3 07/31/24 10:22: POC Glucose 72 I & O for Last 24 hours: Intake & Output 07/28/24 07/29/24 07/30/24 07/31/24 23:59 23:59 23:59 23:59 Intake Total 1739 1370 / 1610 1250 / 1472 582 / 582 Output Total 0 / 0 0 / 0 0 / 0 0 / 0 Balance 1739 1370 / 1610 1250 / 1472 582 / 582 Weight 107.397 kg 105 kg 104.508 kg 106 kg Microbiology Reports for the Last 24 Hours: Microbiology 07/27/24 11:57 Blood Blood Culture - Preliminary NO GROWTH AFTER 4 DAYS 07/27/24 11:41 Blood Blood Culture - Preliminary NO GROWTH AFTER 4 DAYS 07/28/24 14:47 Sputum - Expectorated Sputum Gram Stain - Final 07/28/24 14:47 Sputum - Expectorated Sputum Sputum Culture - Final Constitutional Constitutional: no acute distress and obese *Routine HEENT Exam Head: Present normocephalic Eye: Present EOMI and PERRL ENT: Present mucous membranes moist *Routine Neck Exam Neck: Present supple; Absent lymphadenopathy *Routine Respiratory Exam Respiratory: Present CTA bilaterally *Routine Cardiovascular Exam Cardiovascular: Present RRR *Routine Abdominal Exam Abdominal: Present soft and normoactive bowel sounds; Absent tenderness *Routine Extremities Exam Extremities: Absent cyanosis, clubbing or edema *Routine Skin Exam Skin: Present warm; Absent rash *Routine Neurological Exam Neurological: Present alert and oriented X3 Results Data Completed and Pending Labs on day of discharge: Labs from last 24 hours 07/31/24 07/31/24 07/31/24 10:22 06:59 06:40 WBC 12.3 H RBC 4.76 Hgb 13.4 Hct 41.4 MCV 87.0 MCH 28.2 MCHC 32.4 RDW 14.8 Plt Count 300 MPV 10.3 Neut % (Auto) 73.9 Lymph % (Auto) 19.3 [place] % (Auto) 6.1 Eos % (Auto) 0.1 Baso % (Auto) 0.2 Neut # (Auto) 9.1 H Lymph # (Auto) 2.4 [place] # (Auto) 0.8 Eos # (Auto) 0.0 Baso # (Auto) 0.0 Sodium 138 Potassium 3.7 Chloride 103 Carbon Dioxide 31 H Anion Gap 7.7 BUN 10 Creatinine 0.60 Estimated Creat Clear 215 Estimated GFR 112 Est GFR ( Amer) 136 Glucose 100 POC Glucose 72 Calcium 8.8 Magnesium 1.9 Total Bilirubin 0.5 AST 27 ALT 27 Alkaline Phosphatase 90 Total Protein 6.8 Albumin 3.8 D Globulin 3.0 Albumin/Globulin Ratio 1.3 07/31/24 07/30/24 07/30/24 06:39 19:59 16:38 WBC RBC Hgb Hct MCV MCH MCHC RDW Plt Count MPV Neut % (Auto) Lymph % (Auto) [place] % (Auto) Eos % (Auto) Baso % (Auto) Neut # (Auto) Lymph # (Auto) [place] # (Auto) Eos # (Auto) Baso # (Auto) Sodium Potassium Chloride Carbon Dioxide Anion Gap BUN Creatinine Estimated Creat Clear Estimated GFR Est GFR ( Amer) Glucose POC Glucose 98 216 H 97 Calcium Magnesium Total Bilirubin AST ALT Alkaline Phosphatase Total Protein Albumin Globulin Albumin/Globulin Ratio Preliminary micro results at discharge 07/27/24 11:57 Blood Culture - Preliminary Blood NO GROWTH AFTER 4 DAYS 07/27/24 11:41 Blood Culture - Preliminary Blood NO GROWTH AFTER 4 DAYS DS: Diagnosis Discharge Diagnosis (1) Acute hypoxemic respiratory failure: Status: Acute Code(s): J96.01 - Acute respiratory failure with hypoxia (2) Pneumonia: Status: Acute Code(s): J18.9 - Pneumonia, unspecified organism (3) Asthmaticus, status: Status: Acute Code(s): J45.902 - Unspecified asthma with status asthmaticus (4) Candidiasis of mouth: Status: Acute Code(s): B37.0 - Candidal stomatitis (5) Obstructive sleep apnea (adult) (pediatric): Status: Acute Code(s): G47.33 - Obstructive sleep apnea (adult) (pediatric) (6) Hypothyroidism: Status: Acute Code(s): E03.9 - Hypothyroidism, unspecified Qualifiers: Hypothyroidism type: unspecified Qualified Code(s): E03.9 - Hypothyroidism, unspecified (7) Tobacco use: Status: Acute Code(s): Z72.0 - Tobacco use (8) Hypertension: Status: Acute Code(s): I10 - Essential (primary) hypertension Qualifiers: Hypertension type: primary hypertension Qualified Code(s): I10 - Essential (primary) hypertension (9) Depression: Status: Acute Code(s): F32.A - Depression, unspecified Qualifiers: Depression Type: unspecified Qualified Code(s): F32.A - Depression, unspecified (10) DM type 2 (diabetes mellitus, type 2): Status: Chronic Code(s): E11.9 - Type 2 diabetes mellitus without complications Qualifiers: Diabetes mellitus complication status: without complication Diabetes mellitus tank terminal gauger insulin use: without mcfp use Qualified Code(s): E11.9 - Type 2 diabetes mellitus without complications (11) Asthma: Status: Acute Code(s): J45.909 - Unspecified asthma, uncomplicated (12) Anxiety: Status: Acute Code(s): F41.9 - Anxiety disorder, unspecified Meds Home Medications and Allergies Home Medications ?Medication ?Instructions ?Recorded ?Confirmed ?Type levonorgestrel (Mirena) 1 device intrauterine DIRECTED 01/28/22 07/27/24 History control ondansetron HCl 4 mg tablet 4 mg PO TIDP PRN Nausea 03/29/24 07/28/24 History albuterol sulfate 90 mcg/actuation 2 puff inhalation Q6H PRN 05/24/24 07/27/24 Rx aerosol inhaler (Ventolin HFA) shortness of breath or wheezing #6.7 grams metformin 500 mg tablet,extended 1,000 mg (2 x 500 mg) PO DAILY 06/17/24 07/27/24 Rx release 24 hr Diabetes #180 tabs levothyroxine 50 mcg tablet 50 mcg PO DAILY 07/27/24 07/27/24 History lisinopril 2.5 mg tablet 2.5 mg PO DAILY 07/27/24 07/27/24 History semaglutide 7 mg tablet (Rybelsus) 7 mg PO DAILY 07/27/24 07/27/24 History sertraline 100 mg tablet 100 mg PO DAILY 07/27/24 07/27/24 History cefdinir 300 mg capsule 300 mg PO BID 1 day #2 caps 07/31/24 Rx fluticasone fur. 100 mcg-umeclid 1 inh inhalation DAILY 30 days #28 07/31/24 Rx 62.5 mcg-vilant 25 mcg ea inhalat.powder (Trelegy Ellipta) ipratropium 0.5 mg-albuterol 3 mg 3 ml inhalation QID PRN wheezing 07/31/24 Rx (2.5 mg base)/3 mL nebulization #90 mL soln prednisone 20 mg tablet 20 mg PO DAILY 1 day #1 tab 07/31/24 Rx New Prescriptions to Start Prescriptions: cefdinir Jeevan Brody [id number] [Trelegy Ellipta] Jeevan Brody ipratropium-albuterol Mary Grace,Jeevan prednisone Jeevan Brody Allergies Allergy/AdvReac Type Severity Reaction Status Date / Time Androgenic Anabolic Steroid Allergy Mild Verified 07/10/24 11:59 Discharge Plan Disposition Patient Disposition: Home, Self-Care Condition: Fair Discharge Order Discharge Orders: Discharge Order (Routine); Ordered 07/31/24 Ordered By: Jeevan Brody Follow up Plan Follow up with: Nic Alegre MD [Physician] - 08/07/24 (please call for appointment) Prescriptions/Medication Reconciliation: New ipratropium-albuterol 0.5 mg-3 mg(2.5 mg base)/3 mL solution for nebulization 3 ml inhalation QID PRN (Reason: wheezing) Qty: 90 0RF cefdinir 300 mg capsule 300 mg PO BID 1 Days Qty: 2 0RF prednisone 20 mg tablet 20 mg PO DAILY 1 Days Qty: 1 0RF Continued Mirena 20 mcg/24 hours (7 yrs) 52 mg intrauterine device 1 device INTRAUTERI DIRECTED ondansetron HCl 4 mg tablet 4 mg PO TIDP PRN (Reason: Nausea) Patient Comments: TAKE ONE TABLET BY MOUTH EVERY 8 HOURS NEEDED FOR NAUSEA AND VOMITING metformin 500 mg tablet extended release 24 hr 1,000 mg PO DAILY Qty: 180 1RF Rx Instructions: Take with evening meal albuterol sulfate [Ventolin HFA] 90 mcg/actuation HFA aerosol inhaler 2 puff inhalation Q6H PRN (Reason: shortness of breath or wheezing) Qty: 6.7 0RF sertraline 100 mg tablet 100 mg PO DAILY Rx Instructions: TAKE ONE TABLET BY MOUTH EVERY DAY levothyroxine 50 mcg tablet 50 mcg PO DAILY Rx Instructions: TAKE ONE TABLET BY MOUTH EVERY DAY IN THE MORNING Rybelsus 7 mg tablet 7 mg PO DAILY Rx Instructions: TAKE ONE TABLET BY MOUTH EVERY DAY Changed Trelegy Ellipta 100-62.5-25 mcg blister with device 1 inh inhalation DAILY 30 Days Qty: 28 0RF Rx Instructions: INHALE 1 PUFF BY MOUTH EVERY DAY --RINSE MOUTH AFTER USE-- Held lisinopril 2.5 mg tablet 2.5 mg PO DAILY Hold Instructions: Resume on 08/28/24. Your blood pressures have been stable without this medication. Please talk to your PCP before restarting this medication. Problem Reconciliation Problems Reviewed?: Yes Patient Discharge Instructions Patient Instructions: Pneumonia--Adult, Respiratory Failure Print Language: Upper Sorbian Providers Primary Care Provider: Agapito Sauceda Admit Provider: Arun Dietz Attending Provider: Arun Dietz
[2024-07-31] MEDS: CEFTRIAXONE SODIUM 1 GM in 0.9 % SODIUM CHLORIDE 50 ML IV (12:32)
== END 2024-07-31 13:24 | disposition home or self-care (01) | DRG 189 ==
LOC: UTC 08:10 → ER 08:16 → 2ND 15:15
PROVIDERS: Student in an Organized Health Care Education/Training Program; Admitting Provider Internal Medicine Adolescent Medicine; Emergency Provider Emergency Medicine; PCP Internal Medicine; Visit Provider Internal Medicine Adolescent Medicine
DX: J96.01 Acute respiratory failure with hypoxia (principal); J18.9 Pneumonia, unspecified organism; J45.902 Unspecified asthma with status asthmaticus; B37.0 Candidal stomatitis; E11.9 Type 2 diabetes mellitus without complications; E03.9 Hypothyroidism, unspecified; E66.9 Obesity, unspecified; F41.9 Anxiety disorder, unspecified; F17.210 Nicotine dependence, cigarettes, uncomplicated; Z68.38 Body mass index [BMI] 38.0-38.9, adult; Z79.84 Long term (current) use of oral hypoglycemic drugs; Z79.85 Long-term (current) use of injectable non-insulin antidiabetic drugs; Z79.899 Other long term (current) drug therapy; Z79.890 Hormone replacement therapy; Z79.51 Long term (current) use of inhaled steroids
CPT/HCPCS: 36415; 71046; 71275; 80053; 82803; 82962; 83735; 84703; 85007; 85025; 85378; 86803; 87040; 87070; 87205; 87389; 87636; 93005; 94640; 94660; 94761; 99291; J0456; J0696; J1100; J1650; J2405; J2919; J3475; J7050; J7613; J7614; J7620; Q9967

== ENCOUNTER 2024-10-16 10:45 | Outpatient (CLI) | payer OTHER, SELFPAY ==
[2024-10-16 17:20] LABS: Basophils # 0.1 K/mm3 (0-0.2); Basophils % 0.6 % (0.1-2.0); Eosinophils # 0.1 K/mm3 (0.0-0.4); Eosinophils % 1.3 % (0.1-12.0); Hematocrit 44.2 % (37.0-47.0); Hemoglobin 14.7 g/dL (12.2-16.2); Lymphocytes # 2.6 K/mm3 (0.7-4.5); Lymphocytes % 24.4 % (10-50); Mean Corpuscular HGB Conc 33.3 g/dL (31.8-35.4); Mean Corpuscular Hemoglobin 29.3 pg (27.0-31.2); Mean Corpuscular Volume 88.2 fl (81-99); Mean Platelet Volume 10.2 fl (7.4-10.4); Monocytes # 0.6 K/mm3 (0.1-1.0); Monocytes % 5.8 % (1.7-9.3); Neutrophils # 7.2 K/mm3 (1.8-7.8); Neutrophils % 67.6 % (37.0-80.0); Platelet Count 388 K/mm3 (142-424); Red Blood Count 5.01 M/mm3 (4.20-5.40); Red Cell Distribution Width 14.4 % (11.5-17.5); White Blood Count 10.6 K/mm3 (4.8-10.8)
[2024-10-16 17:43] LABS: Creatinine,Urine Random 40 mg/dL (Not Estab.)
[2024-10-16 17:46] LABS: Microalbumin < 6.000 mg/L (0-16.7)
[2024-10-16 18:07] LABS: Alanine Aminotransferase 29 U/L (12-78); Albumin Level 4.2 g/dl (3.5-5.0); Albumin/Globulin Ratio 1.6 (1.1-1.8); Alkaline Phosphatase 95 U/L (38-126); Anion Gap 13.1 mEq/L (5-15); Aspartate Amino Transferase 33 U/L (14-36); Bilirubin,Total 0.5 mg/dl (0.2-1.3); Blood Urea Nitrogen 11 mg/dl (7-17); Calcium 10.1 mg/dl (8.4-10.2); Carbon Dioxide 24 mmol/L (22.0-30.0); Chloride 105 mmol/L (98-107); Estimated Glomerular Filt Rate 112 ml/min (>60); GFR (African American) 136 ML/MIN (>60); Globulin 2.6 g/dL (1.3-3.2); Glucose 100 mg/dl (74-100); HDL Cholesterol 40 mg/dl (40-60); Potassium 4.1 mmoL/L (3.5-5.1); Sodium 138 mmol/L (136-145); Total Protein,Serum 6.8 g/dl (6.3-8.2)
[2024-10-16 18:37] LABS: Thyroid Stimulating Hormone 0.57 uIU/mL (0.465-4.68)
[2024-10-16 19:01] LABS: Hemoglobin A1C 6.2 % (4.0-6.0)
[2024-10-16 19:30] LABS: Chol/HDL Ratio 3.7 (1-3.5); Cholesterol 147 mg/dl (140-200); Triglycerides 77 mg/dl (30-150); VLDL Cholesterol 15 mg/dL (0-40)
== END 2024-10-16 23:59 | disposition home or self-care (01) ==
LOC: LAB.DROPOF 10-17 12:58
PROVIDERS: PCP Internal Medicine; Visit Provider Internal Medicine
DX: E78.5 Hyperlipidemia, unspecified (principal); I10 Essential (primary) hypertension; E03.9 Hypothyroidism, unspecified; E11.9 Type 2 diabetes mellitus without complications; Z79.84 Long term (current) use of oral hypoglycemic drugs; Z79.85 Long-term (current) use of injectable non-insulin antidiabetic drugs; F17.210 Nicotine dependence, cigarettes, uncomplicated
CPT/HCPCS: 80053; 80061; 82043; 82570; 83036; 84443; 85025

== ENCOUNTER 2025-03-20 10:20 | Outpatient (CLI) | payer OTHER, SELFPAY ==
[2025-03-26 01:45] LABS: Atopobium vaginae NOTORDERABLE Low - 0 Score (.); BVAB2 Low - 0 Score (.); Candida albicans NAA Negative (Negative); Candida glabrata Negative (Negative); HSV 1 NAA Negative (Negative); HSV 2 NAA Negative (Negative)
== END 2025-03-20 23:59 | disposition home or self-care (01) ==
LOC: LAB.DROPOF 03-24 10:21
PROVIDERS: PCP Obstetrics & Gynecology; Visit Provider Obstetrics & Gynecology
DX: N89.8 Other specified noninflammatory disorders of vagina (principal)
CPT/HCPCS: 87491; 87529; 87591; 87661; 87798; 87801

== ENCOUNTER 2025-05-20 16:44 | Outpatient (CLI) | payer OTHER, SELFPAY ==
--- NOTE | 2025-05-20 17:00 | MM_ITS ---
PROCEDURE INFORMATION: Exam: MG Bilateral Screening 3D Mammography Exam date and time: 05/20/2025 4:48 PM Age: 40 years old Clinical indication: Screening exam. TECHNIQUE: Imaging protocol: Bilateral Screening tomosynthesis and 2D mammography including computer-aided detection (CAD) when performed. COMPARISON: No relevant prior studies available. FINDINGS: MAMMOGRAPHY: Breast composition: There are scattered areas of fibroglandular density. Mass: No suspicious masses. Architectural distortion: None. Calcifications: No suspicious calcifications. Asymmetric density: None. Skin thickening: None. Axillary adenopathy: None. IMPRESSION: No mammographic evidence of malignancy. Annual screening is recommended unless otherwise clinically indicated. ASSESSMENT: BI-RADS Category 1: Negative.
== END 2025-05-20 23:59 | disposition home or self-care (01) ==
LOC: RAD 16:45
PROVIDERS: PCP Internal Medicine; Visit Provider Obstetrics & Gynecology
DX: Z12.31 Encounter for screening mammogram for malignant neoplasm of breast (principal); R92.323 Mammographic fibroglandular density, bilateral breasts
CPT/HCPCS: 77063; 77067

== ENCOUNTER 2025-07-03 11:23 | Outpatient (CLI) | payer BC, SELFPAY | END 2025-07-03 23:59 | disposition home or self-care (01) | LOC: LAB.DROPOF 07-06 11:23 | PROVIDERS: PCP Internal Medicine; Visit Provider Student in an Organized Health Care Education/Training Program | DX: N39.0 Urinary tract infection, site not specified (principal) | CPT/HCPCS: 87086 ==

== ENCOUNTER 2025-07-15 17:16 | Outpatient (CLI) | payer BC, SELFPAY | END 2025-07-15 23:59 | disposition home or self-care (01) | LOC: LAB.DROPOF 07-16 18:47 | PROVIDERS: PCP Internal Medicine; Visit Provider Nurse Practitioner | DX: J02.9 Acute pharyngitis, unspecified (principal) | CPT/HCPCS: 87070 ==